=== PATIENT | female | born 1940 | race Two or more races ===

== ENCOUNTER 2025-04-17 22:41 | Inpatient (IN) | payer OTHER, SELFPAY ==
[2025-04-17] VITALS (39 sets, daily range): BP systolic 74–112; BP diastolic 33–59
[2025-04-17] MEDS: DEXTROSE 50% SYRINGE 25 GRAMS IV (19:37)
[2025-04-17 19:39] LABS: Glucose - Point of Care 47 mg/dl (70-99)
[2025-04-17] MEDS: NSS 1000 IV ×2 (19:41→20:52)
[2025-04-17 19:45] LABS: Hematocrit 35.3 % (37.0-47.0); Hemoglobin 10.6 g/dL (12.0-16.0); Mean Corp Hgb Conc. 30.0 g/dL (33.0-37.0); Mean Corpuscular Volume 97.0 fL (81.0-99.0); Nucleated Red Blood Cells % 0 %; Platelet Count 262 10^3/uL (130-400); Red Cell Dist. Width 17.8 % (11.5-14.5)
--- NOTE | 2025-04-17 19:51 | PTCARENOTE ---
IO access in left bar, NSS going, pt remains unresponsive. eyes open but no response. pt moaning and has labored breathing, on 2 L NC. D50 25 grams given. last BS 95. etom 20mg given at 1952. rocc 50mg given at 1952. pt continues to enrique, HR at
49. RT paged. being manually bagged. pt intubated at 1956. breath sounds on right, no breath sounds on left per dr barriga. amp of calcium chloride at 1958 and amp of bicarb at 1999 given via IO.
[2025-04-17] MEDS: AMIDATE 20 MG IV (19:53)
[2025-04-17] MEDS: CALCIUM CHLORIDE 10% SYRINGE 500 MG IV (19:59)
[2025-04-17 20:00] LABS: Glucose - Point of Care 95 mg/dl (70-99)
[2025-04-17] MEDS: SODIUM BICARBONATE 50 MEQ IV ×3 (20:00→21:51)
--- NOTE | 2025-04-17 20:08 | PTCARENOTE ---
ET at 19cm at right side of lip.
[2025-04-17 20:09] LABS: AST (SGOT) 135 U/L (14-36); Albumin 4.2 g/dl (3.5-5.0); Alkaline Phosphatase 65 U/L (38-126); Blood Urea Nitrogen 70 mg/dl (7-17); Calcium 9.0 mg/dl (8.4-10.2); Carbon Dioxide < 5 mmol/L (22-30); Chloride 110 mmol/L (98-107); Glucose 45 mg/dl (70-99); Potassium 5.5 mmol/L (3.5-5.1); Sodium 146 mmol/L (135-145); Total Protein 7.3 g/dl (6.3-8.2); eGFR 8.73
[2025-04-17 20:14] LABS: Glucose - Point of Care 145 mg/dl (70-99)
[2025-04-17 20:23] LABS: ALT (SGPT) 86 U/L (0-35)
--- NOTE | 2025-04-17 20:26 | ED.GENMED ---
History of Present Illness
General
Chief Complaint: Blood Sugar Problem
Source: health care sanitary technician (granddaughter) and ambulance crew
Time Seen by Provider: 04/17/25 20:25
History of Present Illness
History of Present Illness:
84-year-old female brought to the emergency room by paramedics who were called because the patient was unresponsive. Granddaughter states the patient has a history of diabetes and kidney disease. She was admitted to [facility] recently for
renal failure. There was some discussion about dialysis but her kidney function improved. Patient has not been herself for the past 3 days. Initially she just had a lack of energy and did not want to get out of bed or walk around. She had 1
episode of vomiting 4 days ago. Her oral intake has been decreasing. Her daughter states she has been drinking some liquids. Today the patient was mumbling and confused. Later in the day shortly before she was brought to the emergency room they
went to check on her and she was not responsive. The patient has a history of diabetes she takes only Glucophage for this. She is not taking any insulin.
Phy Exam
Physical Exam
Physical Exam:
General: Nonresponsive, hyperpneic,
Vitals: Hypothermic, hypotensive, bradycardic on arrival
Head: Atraumatic
Eyes: Pupils equal, cataracts noted
Throat: Poor airway reflexes
Neck: Trachea midline
Lungs: Decreased breath sounds bilaterally
Heart: Regular rate, no murmurs
Abd: Soft, Nontender, No pulsatile mass
Neuro: After dextrose administration patient did have some spontaneous head movement and movement of her hands bilaterally
Skin: Cold to touch, no rash
Extremities: pulses equal b/l, no edema
Course
Orders/Labs/Results
Orders:
Orders
04/17/25 Breakfast
NPO
Allow oral meds: Yes
Allow clear liquids: Sips of Clears
04/17/25 19:32
Dextrose 50%-Water [Dextrose 50% Syringe] 25 grams IV NOW STA
04/17/25 19:38
Complete Blood Count/With Diff Urgent
Comprehensive Metabolic Panel Urgent
Creatine Phosphokinase Urgent
Comment: ADD ON
04/17/25 19:41
0.9% Sodium Chloride 1000 ml [Nss] 1,000 ml IV BOLUS
04/17/25 19:58
Portable Chest Xray [CR Chest Portable - 1 View] Urgent
Comment:
Reason For Exam: tube check
Reason Study Needs to be Portable: Patient Unstable
04/17/25 20:00
Etomidate [Amidate] 20 mg IV NOW STA
04/17/25 20:04
Calcium CHLORIDE [Calcium Chloride 10% Syringe] 500 mg IV NOW STA
Sodium Bicarbonate 50 meq IV NOW STA
04/17/25 20:06
CR Chest Portable - 1 View Urgent
Comment:
Reason For Exam: tube check
Reason Study Needs to be Portable: Patient Unstable
04/17/25 20:15
EKG [Electrocardiogram (*1)] Urgent
Reason for Study: Other
Other Reason for Exam: unresponsive
EKG- Treatment ONCE
04/17/25 20:21
Urinalysis Reflex To Culture Urgent
Date Specimen was Collected: 04/17/25
Time Specimen was Collected: 20:20
Urine Microscopic Reflex Cult Urgent
Urine Culture Urgent
VERONICA Source: U
Specimen Description:
Date Specimen was Collected: 04/17/25
Time Specimen was Collected: 20:20
04/17/25 20:29
CT Head W/o Iv Contrast Urgent
Comment:
Reason For Exam: altered mental status
0.9% Sodium Chloride 1000 ml [Nss] 1,000 ml IV BOLUS
04/17/25 20:33
ABG [Arterial Blood Gas] Urgent
%Oxygen/Room Air: 100
Comment: 370/20/5
04/17/25 20:37
NORepinephrine 4 MG/250 ML [Levophed] 4 mg in 250 ml IV NOW
Initial dose in mcg/min, then titrate:: 2
Titrate to keep:: MAP > 65 mmHg
Titrate by mcg/min:: 1-2 mcg/min
Frequency of titrations (minutes):: 5
Maximum dose in ICU in mcg/min:: 30
Maximum dose in IMU in mcg/min:: 8
Maximum dose in IVU in mcg/min:: 4
Begin to taper infusion when:: Remained at goal for 4hrs
Taper by mcg/min:: 1-2 mcg/min
Frequency of taper (minutes) if patient maintains goal:: 30
Taper to off?: Yes
If infusion off & no longer maintaining goal:: Contact Provider
04/17/25 20:38
Rocuronium [place] [Rocuronium] 50 mg IV Q1HPRN PRN
04/17/25 20:39
Blood Culture Q30M
VERONICA Source: Blood/Venous
Specimen Description:
Blood Culture Q30M
VERONICA Source: Blood/Venous
Specimen Description:
04/17/25 20:45
Sterile Water For Inj [Sterile Water For Injection 1000 ml] 1,000 ml Sodium Bicarbonate 150 meq IV 200 mls/hr
04/17/25 20:47
NORepinephrine 4 MG/250 ML [Levophed] 4 mg in 250 ml .ROUTE .STK-MED
04/17/25 21:00
Sterile Water For Inj [Sterile Water For Injection 1000 ml] 1,000 ml Sodium Bicarbonate 150 meq IV 200 mls/hr
04/17/25 21:43
Sodium Bicarbonate 50 meq IV NOW STA
Sodium Bicarbonate 50 meq IV NOW STA
04/17/25 21:44
Cefepime HCl [Maxipime] 2,000 mg IV NOW STA
04/17/25 21:49
Lactate Level [Lactic Acid] Urgent
04/17/25 21:54
Add On- LAB Urgent
Tests Added?: CPK
04/17/25 21:55
ABG [Arterial Blood Gas] Urgent
%Oxygen/Room Air: 40
04/17/25 22:07
Admit/Transfer Patient As Directed
Co-Sign Provider:
Level of Care: Inpatient admission
Assign to:: ICU
Physician / Group: Britton
Diagnosis: Hypothermia, Hypoglycemia, Metabolic Acidosis / Shock
Reason for Hospitalization: Hypothermia, Hypoglycemia, Metabolic Acidosis / Shock
Expected length of stay greater than two midnights?: Yes
ELOS- Estimated Length of Stay in days: 5
I certify the patient meets the requirements for IP care: Yes
PRN Pain Medication Management As Directed
May give lesser potent ordered pain med per pt: Yes
preference::
Protocol:: Medication orders for pain may be administered in a
manner that supports deferring to patient preference
when the pt is:
- Requesting an ordered lesser potent pain medication.
Least to most potent pain medications are defined
as: acetaminophen < NSAID < tramadol < opioids
(morphine, oxycodone, hydromorphone).
- Requesting a lesser dose of the same medication IF
ORDERED.
- Requesting a less intrusive route of administration
if both routes are prescribed by the provider (PO <
IV).
04/17/25 22:16
Code Status As Directed
Resuscitation Status: Full Code
04/17/25 22:50
Acetaminophen [Tylenol/Feverall] 650 mg RECTAL Q6HPRN PRN
Dextrose 5%/Water 1000 ml [D5w] 1,000 ml Sodium Bicarbonate 150 meq IV 150 mls/hr
Dextrose 50%-Water [Dextrose 50% Syringe] 12.5 grams IV [id number] PRN
FentaNYL 1,000 MCG/100 ML [Sublimaze] 1,000 mcg in 100 ml IV PER PROTOCOL
Indication:: Light Sedation
Begin Infusion:: Other
Begin infusion when:: patient requires 3 or more bolus doses in 2 consecutive hours
Goal:: pain score </= 1, CPOT 0-2, RASS 0 to -2
Maximum dose in mcg/hr:: 300
Initial Dose in mcg/hr:: 25
Titration Instructions:: Titrate every 30 minutes if patient exhibits signs of pain or discomfort
Titration Instructions:: (pain score >/= 2, CPOT>/= 3).
Titration Instructions:: Administer bolus dose and increase infusion by 25 mcg/hr.
Taper Instructions:: If pain score at goal for 4 consecutive hours (pain score </= 1, CPOT 0-2)
Taper Instructions:: decrease infusion by 50 mcg/hr every 2 hours.
Taper Instructions:: When dose </= 50 mcg/hr may turn infusion off and consider PRN
Taper Instructions:: intermittent bolus doses only.
Over-sedation Instructions:: If CPOT 0-2 (goal) and RASS -3 to -5 (below goal) decrease sedative by 50%
Over-sedation Instructions:: first. If pain score remains at goal and RASS remains below goal in 1 hour,
Over-sedation Instructions:: decrease opioid infusion by 50%.
Notify provider:: immediately if pt exhibits: chest wall rigidity, hemodynamic instability,
Notify provider:: agitation/pain despite maximum dosing, pain when RASS -3 to -5 (below goal)
Additional Instructions:: When starting infusion, administer bolus dose per PRN order first.
Additional Instructions:: Patient MUST be mechanically ventilated.
Fentanyl Citrate/Pf [Sublimaze] 50 mcg IV [id number] PRN
Glucagon [GlucaGen] 1 mg IM PRN PRN
NORepinephrine 4 MG/250 ML [Levophed] 4 mg in 250 ml IV PER PROTOCOL
Currently infusing. Continue current dose and titrate:: Yes
Titrate to keep:: MAP > 65 mmHg
Titrate by mcg/min:: 1-2 mcg/min
Frequency of titrations (minutes):: 5
Maximum dose in ICU in mcg/min:: 30
Maximum dose in IMU in mcg/min:: 8
Maximum dose in IVU in mcg/min:: 4
Begin to taper infusion when:: Remained at goal for 4hrs
Taper by mcg/min:: 1-2 mcg/min
Frequency of taper (minutes) if patient maintains goal:: 30
Taper to off?: Yes
If infusion off & no longer maintaining goal:: Contact Provider
04/17/25 22:50
Consult Notification Routine
Specialty to Notify: Perfume And Toilet Water Maker
Date consulting provider notified: 04/17/25
Time consulting provider notified: 23:03
Notified:: Provider
Perfume And Toilet Water Maker Consult Routine
Consulting Provider: Asif Velasco
Was physician already notified: No
Reason for consult: Hypothermia, Hypoglycemia, Metabolic Acidosis / Shock
NEPHROLOGY CONSULT Routine
Consulting Provider: Александр Cordoba
Was physician already notified: Yes
Reason for consult: Hypothermia, Hypoglycemia, Metabolic Acidosis / Shock
Activity As Directed
Activity Level: Bedrest
Bedside Glucose Monitoring As Directed
Frequency: AC&HS
Additional Instructions:: Change to q6h if pt on TPN, tube feeding or not eating
EKG with chest pain [ECG as needed] As Directed
ECG as needed for:: Chest Pain
Rocha Catheter [Catheter- Indwelling] As Directed
Reason for insertion: Acute Kidney Injury
Discontinue Date/Time: 04/20/25 0600
I/O [Intake/ Output] As Directed
Frequency: Per unit guidelines
Intake/ Output As Directed
Frequency: Per unit guidelines
Comment: strict intake and output monitoring
Records Request [Obtain Records] As Directed
Dates of Information to be Released: Most Recent
Type of Information Requested: Entire Record
Obtain Records from: [facility]
Vital Signs As Directed
Frequency: Per unit guidelines
Weight As Directed
Frequency: Daily
Weight As Directed
Frequency: Daily
DX Deep Vein Thrombosis Video Routine
04/17/25 23:46
BMP [Basic Metabolic Panel] Q4H
TSH Reflex To Free T4 Routine
Troponin I Q6H
04/18/25 02:50
BMP [Basic Metabolic Panel] Q4H
04/18/25 04:50
Troponin I Q6H
04/18/25 06:00
EKG [Electrocardiogram (*1)] IN AM
Reason for Study: Chest Pain
Echo 2D MMode Doppler [Echo 2D MMode Color/Doppler] IN AM
Reason for Study: Shock
Complete Blood Count/No Diff IN AM
Glycohemoglobin (HgbA1c) IN AM
Magnesium IN AM
Phosphorus IN AM
04/18/25 07:30
Insulin Aspart Corrective Low [Novolog Flexpen-Low Resistance] See Protocol SC AC
04/18/25 08:00
CefTRIAXone [Rocephin] 1,000 mg IV Q24H
Heparin 5,000 units SC Q12
Pantoprazole [Protonix IV] 40 mg IV DAILY
Polyethylene Glycol Powder [Miralax] 17 grams TUBE DAILY
04/18/25 10:50
BMP [Basic Metabolic Panel] Q4H
Troponin I Q6H
04/18/25 14:50
BMP [Basic Metabolic Panel] Q4H
04/18/25 18:50
BMP [Basic Metabolic Panel] Q4H
Abnormal Lab Results
04/17/25 04/17/25 04/17/25
19:33 19:38 20:13
RBC 3.64 L 10^6/uL
(4.20-5.40)
Hgb 10.6 L g/dL
(12.0-16.0)
Hct 35.3 L %
(37.0-47.0)
MCHC 30.0 L g/dL
(33.0-37.0)
RDW 17.8 H %
(11.5-14.5)
MPV 11.2 H fL
(7.4-10.4)
Abs Immat Gran (auto) 0.2 H 10^3/uL
(0-0.05)
Immature Gran % 2.9 H %
(0-0.5)
pH
pCO2
pO2
HCO3
ABG O2 Sat (Measured)
Sodium 146 H mmol/L
(135-145)
Potassium 5.5 H mmol/L
(3.5-5.1)
Chloride 110 H mmol/L
(98-107)
Carbon Dioxide < 5 L* mmol/L
(22-30)
BUN 70 H mg/dl
(7-17)
Creatinine 4.7 H* mg/dL
(0.6-1.0)
Glucose 45 L* mg/dl
(70-99)
Lactic Acid
AST 135 H U/L
(14-36)
ALT 86 H U/L
(0-35)
Ur Occult Blood Reflex
Leukocyte Esterase Rfl
Urine WBC (Reflex)
Urine Bacteria (Reflex)
Urine Albumin (Reflex)
POC Glucose 47 L* mg/dl 145 H mg/dl
(70-99) (70-99)
04/17/25 04/17/25 04/17/25
20:21 20:33 21:49
RBC
Hgb
Hct
MCHC
RDW
MPV
Abs Immat Gran (auto)
Immature Gran %
pH 6.87 L*
(7.35-7.45)
pCO2 20 L mmHg
(32-35)
pO2 530 H mmHg
(83-108)
HCO3 3.7 L* mmol/L
(-)
ABG O2 Sat (Measured) 100.0 H %
(94-98)
Sodium
Potassium
Chloride
Carbon Dioxide
BUN
Creatinine
Glucose
Lactic Acid 14.6 H* mmol/L
(0.7-2.0)
AST
ALT
Ur Occult Blood Reflex 4+ A
(Negative)
Leukocyte Esterase Rfl 3+ A
(Negative)
Urine WBC (Reflex) >100 A /HPF
(0-5)
Urine Bacteria (Reflex) Many A
(Negative)
Urine Albumin (Reflex) 3+ A
(Neg - Trace)
POC Glucose
04/17/25
21:55
RBC
Hgb
Hct
MCHC
RDW
MPV
Abs Immat Gran (auto)
Immature Gran %
pH 6.91 L*
(7.35-7.45)
pCO2 18 L* mmHg
(32-35)
pO2 219 H mmHg
(83-108)
HCO3 3.6 L* mmol/L
(21-28)
ABG O2 Sat (Measured) 100.0 H %
(94-98)
Sodium
Potassium
Chloride
Carbon Dioxide
BUN
Creatinine
Glucose
Lactic Acid
AST
ALT
Ur Occult Blood Reflex
Leukocyte Esterase Rfl
Urine WBC (Reflex)
Urine Bacteria (Reflex)
Urine Albumin (Reflex)
POC Glucose
04/17/25 19:38
04/17/25 19:38
Vital Signs
Initial and Last Documented VS:
Initial Vital Signs
Pulse Resp
73 20
04/17/25 19:34 04/17/25 19:34
Last Documented Vital Signs
Temp Pulse Resp BP Pulse Ox
91.3 F L 80 20 104/60 100
04/18/25 03:09 04/18/25 02:00 04/18/25 02:00 04/18/25 00:00 04/18/25 02:00
Procedures
Intubations
Procedure completed by: Myself
Method of Intubation: glidescope
Tube size (cm): 7.5
Placement confirmed by: auscutation, CXR, capnography, placement corrected and direct visualization
Breath sounds after intubation: left greater than right
Additional information:
On first intubation attempt I did visualize the endotracheal tube in which her vocal cords. The color metric change was minimal on CO2 detector. Tube withdrawn and a second ET tube was placed. The second tube definitely went through the vocal
cords. CO2 detection was still not convincing breath sounds were heard in the left. The chest x-ray showed the tube in the trachea but in the right mainstem bronchus as well. It was pulled back ultimately to 19 cm.
Other
Indication for procedure:: Lack of IV access
Procedure completed by: Myself
Consent form signed: No
If no, reason: Emergency procedure
Additional Procedure:
A left tibial intraosseous line was placed using the IO gun. Needle was placed 2 cm below the tibial plateau on the medial tibia. Blood/marrow was obtained with a syringe. The line was flushed with lidocaine and then dextrose was administered
through the IO.
MDM/Problems Addressed
Differential Diagnosis Includes:
Hypoglycemia, renal failure, hyperkalemia, sepsis, ischemic or hemorrhagic stroke
MDM/Problems Addressed:
Patient presents with decreased mental status and hypoglycemia. Medics were unable to obtain IV access but did give a milligram of glucagon. Her initial glucose rhythm was in the 20s. Here was still in the 40s. Multiple attempts at IV access
were made in a short period of time. A very small IV was obtained in the right ankle. Without adequate IV access the decision was made to place an interosseous line at the left tibia. We were then able to administer 50 cc of 50% dextrose. Her
glucose did improved to 95 and then 147. Mental status did not significantly improved. She did develop a little bit of spontaneous movement of her upper extremities but certainly remained quite obtunded. Patient did not appear to be protecting
her airway and therefore we proceeded with intubation. Rapid sequence intubation was performed. ET tube was at 23 cm but on a portable chest x-ray this was found to be in the right mainstem bronchus. It was pulled back ultimately to 19 cm. She
had good bilateral breath sounds at this point. Patient is hypotensive. IV fluid resuscitation initiated with normal saline. During her initial resuscitation she was noted to be bradycardic. This was prior to intubation. She received an amp of
calcium chloride and an amp of bicarbonate for suspected hyperkalemia. Heart rate improved to the 60s. I discussed the patient's presentation with her granddaughter. She provided with the above details. Patient noted to be hypothermic as well
via temperature sensing Rocha. With a Rocha was placed there was no urine output. Bear hugger will be used to try to warm her.
Head CT shows no acute abnormalities. Vent settings adjusted for blood gas. Case discussed with nephrology to ascertain their opinion on emergent dialysis. Dr. Heller requested 2 more amps of bicarb. He would like to see how she responds to the
current interventions prior to deciding for emergent dialysis. Hospitalist notified will admit to the ICU.
*Radiology
Radiology exam reviewed: preliminary read by ED provider (I reviewed 2 portable chest x-rays. First chest x-ray shows the endotracheal tube well into the right mainstem bronchus without any focal infiltrates. Second portable chest x-ray shows the
ET tube was pulled back to just at the mike. Recommend he comes back another centimeter.)
*Pulse Oximetry
SaO2: 80
Oxygen Mode of Delivery: Ventilator
Patient hypoxic: yes
*EKG
Interpreted by ED Provider?: Yes
Heart Rate: 75
Rate: normal
Rhythm: junctional
QRS Pattern: other (Wide-complex)
Ischemia: non-specific ST changes
*Business Administration Teacher Interpretation
Rate: normal
Interpretation: abnormal
Rhythm: junctional
*Critical Care Note
Total Time (30-74mins, 75-104mins- exclusive of procedures): 65 min
comment:
Critical care statement: A total of 65 minutes of critical care time was provided for this patient. This includes management of unstable vital signs, evaluation of the patient at bedside, reviewing the patient�s pertinent medical records, discussion
with consultants, review of old EKGs and review of pertinent medical records. This time with separate from time utilized to perform the aforementioned documented procedures
ED Attending Note
-
Portions of this chart may have been created with voice recognition software.� Occasional wrong word or��sound alike� substitutions may have occurred due to the inherent limitations of voice recognition software.
Discharge Plan
Departure
Patient Disposition: Admit
Date of Disposition: 04/17/25
Time of Disposition: 21:51
Admit to: ICU
Presentation/result/management discussed w/ accepting MD/DO: Hospitalist
Patient with high blood pressure during this ER visit?: No
Condition: Critical
Discharge Problem:
Hypoglycemia, Acute renal failure (ARF), Metabolic acidosis, Acute UTI
Interventions
Interventions:
*Risk Screen - Suicide Last Done: 04/17/25 19:34
*General Assessment Last Done: 04/17/25 19:39
*Neglect/Abuse Screening Last Done: 04/17/25 19:34
*ED- Fall Risk Assessment Last Done: 04/17/25 19:39
*ED COVID-19 Vaccine History Last Done: 04/18/25 00:00
*Nursing Disposition Last Done: 04/17/25 22:28
ED- Neurological Assessment Last Done: 04/17/25 20:06
Discharge Date and Time
Discharge Date/Time: 04/17/25 22:49
[2025-04-17 20:34] LABS: Urine Character Cloudy (Clear)
[2025-04-17 20:47] LABS: B.E. -28.0 mmol/L; O2 Saturation % 100.0 % (94-98); PCO2 20 mmHg (32-35); PO2 530 mmHg (83-108)
[2025-04-17 20:50] LABS: HCO3 3.7 mmol/L (21-28)
[2025-04-17] MEDS: LEVOPHED 250 IV (20:50)
[2025-04-17 20:52] LABS: Urine White Cell >100 /HPF (0-5)
[2025-04-17] MEDS: SODIUM BICARBONATE 1150 MEQ IV ×2 (21:14→23:41)
[2025-04-17] MEDS: MAXIPIME 2000 MG IV (21:51)
[2025-04-17 22:01] LABS: B.E. -27.3 mmol/L; O2 Saturation % 100.0 % (94-98); PO2 219 mmHg (83-108)
[2025-04-17 22:04] LABS: HCO3 3.6 mmol/L (21-28); PCO2 18 mmHg (32-35)
--- NOTE | 2025-04-17 22:24 | HPS.HSE ---
Family Physician
-
Family Physician: Tima Joshi
Chief Complaint
-
Confusion / N/V
History of Present Illness
Patient is a 84y F with PMH significant for A-Fib, HTN and DM-II who presents to ED for evaluation of confusion and N/V. History obtained from ED staff and family at the bedside. Family states that patient has been feeling very weak for the
past few days. Decreased PO intake, N/V x 3 days. Today the patient seemed confused and was complaining of SOB. 911 was called and patient brought to the ED for further evaluation. EMS reported glucose of 20 on initial check. Patient was given
glucagon by EMS. Glucose remained in the 40s on arrival to the ED and patient was unresponsive. She was intubated in the ED.
Patient was noted to be hypothermic and hypotensive. She was started on IVFs and Levophed.
Labs were done showing multiple metabolic derangements.
At the time of my examination, patient is unresponsive on the ventilator on no active sedation at present.
Medical History
Past Medical History
Past Medical History: Reports Other
Additional Past Medical History:
Hypertension
DM-II
A-Fib
CKD
Past Surgical History: Reports Other
Additional Past Surgical History:
Bilateral Hip Surgery
Ankle Surgery
Social History
Tobacco: Non-smoker
Alcohol: None
Drug: None
Family History
Family History: Not pertinent
Allergies / Home Medications
Allergies reflects when Allergies were last updated in [facility].
Home Medications with original date entered in [facility]
Allergy/Medication List:
Allergies
Allergy/AdvReac Type Severity Reaction Status Date / Time
aspirin Allergy Unknown Verified 04/17/25 20:43
Home Medications
amiodarone 200 mg tablet 200 mg PO DAILY 04/17/25
apixaban 2.5 mg tablet (Eliquis) 2.5 mg PO BID 04/17/25
ergocalciferol (vitamin D2) 1,250 mcg (50,000 unit) capsule 1,250 mcg PO MO 04/17/25
famotidine 20 mg tablet (Pepcid) 20 mg PO BIDPRN PRN gerd 04/17/25
ferrous sulfate 325 mg (65 mg iron) tablet 325 mg PO MOWEFR 04/17/25
guaifenesin 100 mg/5 mL oral liquid (Karli-Tussin) 200 mg PO Q6HPRN PRN cough 04/17/25
lisinopril 40 mg tablet 40 mg PO DAILY 04/17/25
metformin 500 mg tablet 500 mg PO BID 04/17/25
metoprolol succinate 25 mg tablet,extended release 24 hr (Toprol XL) 25 mg PO DAILY 04/17/25
pravastatin 40 mg tablet 40 mg PO DAILY 04/17/25
Review of Systems
-
Unable to obtain full review of systems at this time due to: Patient Intubation
Physical Exam
Vital Signs
Vital Signs
Temp Pulse Resp BP
89.6 F L 79 20 100/46
04/17/25 22:01 04/17/25 22:15 04/17/25 22:15 04/17/25 22:15
Physical Exam
General: Other (84y F critically-ill, unresponsive on ventilator.)
HEENT: Other (Dry MM. ETT in place.)
Respiratory: Clear; No Wheezes, Rales or Rhonchi
Cardiac: S1/S2 and Regular Rhythm; No Murmur
GI: Soft, Non Tender, Non Distended and Normal Bowel Sounds
Genito-urinary: Other (Rocha in place with scant cloudy urine in tubing.)
Musculoskeletal: No Clubbing, No Cyanosis and No Edema
Neuro: Other (Unresponsive on vent.)
Laboratory Results
-
04/17/25 19:38
04/17/25 19:38
Laboratory Results
pH 6.91 (7.35-7.45) L* 04/17/25 21:55
pCO2 18 mmHg (32-35) L* 04/17/25 21:55
pO2 219 mmHg (83-108) H 04/17/25 21:55
HCO3 3.6 mmol/L (21-28) L* 04/17/25 21:55
Total Bilirubin 0.7 mg/dl (0.2-1.3) 04/17/25 19:38
AST 135 U/L (14-36) H 04/17/25 19:38
ALT 86 U/L (0-35) H 04/17/25 19:38
Alkaline Phosphatase 65 U/L (38-126) 04/17/25 19:38
Impression/Plan
-
A/P: Patient is an 84y F with PMH significant for A-Fib, HTN and DM-II who presents to ED for evaluation of N/V, confusion and poor responsiveness.
Hypothermia
Hypoglycemia
Hypotension / Shock
Anion Gap Metabolic Acidosis
NALINI on CKD
- Admit for further evaluation and treatment.
- Unclear etiology in patient on multiple nephrotoxic medications with poor PO intake, recent N/V, etc.
- Also evidence of current urinary infection (see below).
- Intubated for airway protection / acidosis management.
- Sedation if needed. Follow ABG for improvement.
- IVFs with bicarb supplementation. Include dextrose given hypoglycemia.
- Follow labs / lytes for improvement and adjust IVFs as needed.
- Repeat labs now and every 4 hours.
- Nephrology consulted. May require dialysis if no significant improvement with IVFs / bicarb.
- Avoid nephrotoxic agents (lisinopril, metformin).
- Pressors as needed to maintain perfusion / avoid hypotension.
- Obtain records from hospitalization [facility] - also for renal failure at that time.
Acute TME
- Likely secondary to the above - acidosis / shock / etc.
- CT done in the ED was unremarkable.
- Add sedation if needed while on vent support.
- Treat underlying issues as noted and follow for improvement in mentation.
UTI
- Rocha placed with return of scant amount of purulent appearing urine.
- Continue IV abx with ceftriaxone for now pending culture data.
- Possible component of sepsis underlying shock.
- IVFs / pressors as noted above.
- Follow temperature curve. Monitor for any clinical changes.
DM-II
- Currently hypoglycemic with initial glucose of 20 for EMS.
- Hold all oral hypoglycemic medications (metformin at home which can cause lactic acidosis as well).
- Follow glucose and adjust IVFs / cover with SSI as needed.
- Update A1C.
Atrial Fibrillation - Unknown Type
- EKG with wide QRS and prolonged intervals - likely due to hypothermia.
- Hold current medications including metoprolol and Eliquis acutely.
- Monitor on telemetry.
- Check Echo in AM given shock.
Benign Hypertension
- Currently hypotensive. Hold all antihypertensive medications.
Normocytic Anemia
- Unknown baseline. Follow for changes. No acute evidence of bleeding.
DVT Prophylaxis: Subcut Heparin
Code Status: Full
Reviewed with family at the bedside in detail. Dialysis discussed during November admission in [place] as well - though ultimately not required at that time. Family states that patient would be amenable to HD if needed.
interpersonal communications professor is grand-daughter: Jacki Santoro .
--- NOTE | 2025-04-17 23:22 | W.PN.SEPSIS ---
Sepsis
Vital Signs
Temp Pulse Resp BP
89.6 F L 78 16 101/50
04/17/25 22:01 04/17/25 22:46 04/17/25 22:46 04/17/25 22:35
Physical Exam
Physical Exam:
A focused exam was performed after fluid resuscitation.
Capillary Refill
Bilateral Upper Extremity:
Dafne Time: Less than 3 sec
Bilateral Lower Extremity:
Dafne Time: Less than 3 sec
Pulse Evaluation
Bilateral Radial:
Pulse Evaluation: Present
Bilateral Dorsalis Pedis:
Pulse Evaluation: Present
--- NOTE | 2025-04-17 23:22 | W.PN.UPDATE ---
Update Note
Progress Note Update
ARTERIAL LINE (A-Line) PLACEMENT
Date: 04/17/25
Time: 2310
Indication: Hemodynamic monitoring, emergent consent implied
A time-out was completed verifying correct patient, procedure, site, positioning, and special equipment if applicable. Eulogio�s test was performed to ensure adequate perfusion. The patient�s right wrist was prepped and draped in sterile fashion.
A�20G Arrow arterial line was introduced into the radial artery. The catheter was threaded over the guide wire and the needle was removed with appropriate pulsatile�blood return. A sterile dressing applied. Perfusion to the extremity distal to the
point of catheter insertion was checked and found to be adequate.
Estimated Blood Loss: <5cc
The patient tolerated the procedure well and there were no complications.
[2025-04-17 23:29] LABS: Glucose - Point of Care 207 mg/dl (70-99)
[2025-04-17] MEDS: PITRESSIN 100 IV (23:40)
[2025-04-18] VITALS: BP 104/60
--- NOTE | 2025-04-18 | PTCARENOTE ---
rec`d pt from ED- unresponsive, intubated. no corneals, no cough, no gag. pupils 2mm and not reactive. karli hugger on pt due to pt`d temp being 89 degrees. SR on monitor. PIVS flushed and patent. left bar IO flushed and +blood return. pressors
running to maintain MAP>65. 7.5 ETT at 19cm. POX 100%. vent settings a/c 20/370/40%/5 of peep. temp sensing rush draining milky in color. restraints on pt. sacral foam for protection and heel foams for protection. safe environment maintained.
[2025-04-18 00:01] LABS: B.E. -22.8 mmol/L; O2 Saturation % 100.0 % (94-98); PO2 209 mmHg (83-108)
[2025-04-18 00:04] LABS: O2 Therapy VENT
[2025-04-18 00:05] LABS: HCO3 5.3 mmol/L (21-28); PCO2 18 mmHg (32-35)
[2025-04-18] MEDS: NSS 1000 IV (00:05)
[2025-04-18 00:26] LABS: Blood Urea Nitrogen 62 mg/dl (7-17); Calcium 9.5 mg/dl (8.4-10.2); Carbon Dioxide < 5 mmol/L (22-30); Chloride 111 mmol/L (98-107); Estimated Creatinine Clearance 7 ml/min; Glucose 216 mg/dl (70-99); Potassium 4.5 mmol/L (3.5-5.1); Sodium 149 mmol/L (135-145); Triglycerides 198 mg/dl (10-149); eGFR 11.63
[2025-04-18 00:29] LABS: Troponin I 0.024 ng/ml
[2025-04-18] MEDS: LEVOPHED 250 IV ×5 (02:21→16:52)
[2025-04-18 04:00] VITALS: BP 159/34
[2025-04-18 04:23] LABS: B.E. -20.4 mmol/L; O2 Saturation % 100.0 % (94-98); PO2 184 mmHg (83-108)
[2025-04-18 04:25] LABS: HCO3 6.2 mmol/L (21-28); PCO2 17 mmHg (32-35)
[2025-04-18 04:40] LABS: Hematocrit 28.1 % (37.0-47.0); Hemoglobin 9.2 g/dL (12.0-16.0); Mean Corp Hgb Conc. 32.7 g/dL (33.0-37.0); Mean Corpuscular Volume 90.9 fL (81.0-99.0); Platelet Count 209 10^3/uL (130-400); Red Cell Dist. Width 17.8 % (11.5-14.5)
[2025-04-18 04:44] LABS: INR 2.18; PT 24.4 Sec (11.4-14.6)
[2025-04-18 04:45] LABS: APTT 37.0 Sec (23.4-35.0)
--- NOTE | 2025-04-18 05:03 | PTCARENOTE ---
pt reassessed, no changes in pt assessment. levo titrated per order. safe environment maintained.
[2025-04-18 05:04] LABS: AST (SGOT) 251 U/L (14-36); Albumin 2.6 g/dl (3.5-5.0); Alkaline Phosphatase 62 U/L (38-126); Blood Urea Nitrogen 59 mg/dl (7-17); Calcium 7.7 mg/dl (8.4-10.2); Carbon Dioxide < 5 mmol/L (22-30); Chloride 104 mmol/L (98-107); Estimated Creatinine Clearance 8 ml/min; Glucose 386 mg/dl (70-99); Magnesium 1.3 mg/dl (1.6-2.3); Potassium 3.9 mmol/L (3.5-5.1); Sodium 144 mmol/L (135-145); Total Protein 4.7 g/dl (6.3-8.2); Troponin I 0.020 ng/ml; eGFR 13.34
[2025-04-18 05:24] LABS: ALT (SGPT) 130 U/L (0-35)
[2025-04-18] MEDS: SODIUM BICARBONATE 1150 MEQ IV ×2 (05:39→12:24)
[2025-04-18] MEDS: FLEXBUMIN 100 IV (05:47)
[2025-04-18] MEDS: MAGNESIUM SULFATE 50 IV (05:56)
[2025-04-18 06:00] VITALS: BMI 18.3
[2025-04-18] MEDS: PITRESSIN 100 IV ×2 (06:33→17:05)
--- NOTE | 2025-04-18 07:37 | W.PN.HOSP.TC ---
Today's Communication/Plan
-
Loop Tacker consult
Cortisol level
Vancomycin, Zosyn
Stop ceftriaxone
Await cultures
Wean pressors
Recheck labs
Replete magnesium
Assessment / Plan
Assessment / Plan
Gen-intubated, sedated
HEENT-NC, AT, anicteric, clear oral mm
Neck-supple
CV-reg, no M, +S1/S2
Lungs-clear B/L
Abd-soft, NT, ND
Ext-no edema
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
Skin-warm and dry
Acute metabolic encephalopathy -most likely multifactorial etiology including hypoglycemia, hypotension, severe metabolic acidosis, NALINI, etc.
CT head on admission shows no acute abnormality. No hemorrhage. 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 Baseline cognition unknown.
Acute hypoxic respiratory failure -intubated for airway protection given obtundation on presentation. Loop Tacker consulted. Continue ICU monitoring.
No obvious infiltrate on chest x-ray, I reviewed it myself.
Shock -septic versus cardiogenic versus hypovolemic versus other. Currently stable hemodynamically on Levophed and vasopressin. Wean down as able. Continue IV fluid support.
Blood cultures pending, urine culture pending. Urinalysis does show pyuria. Would broaden antibiotics given presentation with possible septic shock, critical illness. She received a dose of cefepime 2000 mg at 9:51 PM last night.
NALINI -likely due to shock, hypotension, ATN, hypovolemia, etc.
Rocha catheter inserted. Nephrology consulted. Baseline renal function unknown. Need to obtain records.
CPK 33.
High AG metabolic acidosis -presentation with shock, lactic acidosis, NALINI. Continue sodium bicarbonate IV infusion.
Hypothermia -TSH 31, free T4 normal at 1.3. Check random cortisol in light of presentation with hypotension, hypoglycemia, hypothermia.
Hypernatremia -due to severe dehydration. Presentation with sodium 146, repeat 149, repeat 144. Monitor labs closely.
Hyperkalemia -resolved.
Hypomagnesemia -getting repleted.
Hyperphosphatemia
DM2 with hypoglycemia -presentation with glucose 45, reportedly glucose in the 20s at home. Metformin listed as the only diabetes medication. Last glucose 386, may need to initiate critical care insulin infusion protocol. Currently subcutaneous
corrective doses of aspart ordered. Hemoglobin A1c pending. Cortisol level pending.
Atrial fibrillation, unknown type -hold amiodarone and Eliquis.
Normocytic anemia -unknown acuity or etiology.
Full code
Anticipated Discharge: > 48 hours
Subjective/Interval History
-
Date of Service: April 18, 2025
Patient seen and examined. Remains sedated and intubated. Unresponsive.
Objective Data
-
Labs:
Laboratory Results
04/17/25 04/17/25 04/17/25
19:38 20:33 21:55
WBC 7.7
Hgb 10.6 L
Hct 35.3 L
Plt Count 262
PT
INR
APTT
HCO3 3.7 L* 3.6 L*
Sodium 146 H
Potassium 5.5 H
Chloride 110 H
Carbon Dioxide < 5 L*
BUN 70 H
Creatinine 4.7 H*
Glucose 45 L*
Calcium 9.0
Total Bilirubin 0.7
AST 135 H
ALT 86 H
Alkaline Phosphatase 65
04/17/25 04/17/25 04/17/25
22:50 23:46 23:51
WBC
Hgb
Hct
Plt Count
PT
INR
APTT
HCO3 Cancelled 5.3 L*
Sodium 149 H
Potassium 4.5
Chloride 111 H
Carbon Dioxide < 5 L*
BUN 62 H
Creatinine 3.7 H
Glucose 216 H
Calcium 9.5
Total Bilirubin
AST
ALT
Alkaline Phosphatase
04/17/25 04/18/25 04/18/25
23:52 04:15 04:15
WBC 6.2
Hgb 9.2 L
Hct 28.1 L
Plt Count 209 D
PT 24.4 H
INR 2.18
APTT 37.0 H
HCO3 6.2 L*
Sodium Cancelled Cancelled 144
Potassium Cancelled Cancelled
Chloride Cancelled
Carbon Dioxide Cancelled
BUN Cancelled
Creatinine Cancelled
Glucose Cancelled
Calcium Cancelled
Total Bilirubin
AST
ALT
Alkaline Phosphatase
04/18/25 04/18/25 04/18/25
04:15 04:15 04:15
WBC
Hgb
Hct
Plt Count
PT
INR
APTT
HCO3
Sodium
Potassium 3.9
Chloride Cancelled 104
Carbon Dioxide Cancelled < 5 L*
BUN Cancelled
Creatinine
Glucose
Calcium
Total Bilirubin
AST
ALT
Alkaline Phosphatase
04/18/25 04/18/25 04/18/25
04:15 04:15 04:15
WBC
Hgb
Hct
Plt Count
PT
INR
APTT
HCO3
Sodium
Potassium
Chloride
Carbon Dioxide
BUN 59 H
Creatinine Cancelled 3.3 H
Glucose Cancelled 386 H
Calcium Cancelled
Total Bilirubin
AST
ALT
Alkaline Phosphatase
04/18/25 04/18/25 04/18/25
04:15 08:00 10:50
WBC
Hgb
Hct
Plt Count
PT
INR
APTT
HCO3 Pending
Sodium Pending
Potassium Pending
Chloride Pending
Carbon Dioxide Pending
BUN Pending
Creatinine Pending
Glucose Pending
Calcium 7.7 L D Pending
Total Bilirubin 1.0
AST 251 H
ALT 130 H
Alkaline Phosphatase 62
04/18/25 04/18/25 04/18/25
11:00 12:00 14:50
WBC
Hgb
Hct
Plt Count
PT
INR
APTT
HCO3 Pending
Sodium Pending Pending
Potassium Pending Pending
Chloride Pending Pending
Carbon Dioxide Pending Pending
BUN Pending Pending
Creatinine Pending Pending
Glucose Pending Pending
Calcium Pending Pending
Total Bilirubin
AST
ALT
Alkaline Phosphatase
04/18/25
18:50
WBC
Hgb
Hct
Plt Count
PT
INR
APTT
HCO3
Sodium Pending
Potassium Pending
Chloride Pending
Carbon Dioxide Pending
BUN Pending
Creatinine Pending
Glucose Pending
Calcium Pending
Total Bilirubin
AST
ALT
Alkaline Phosphatase
Vital Signs:
Vital Signs
Temp Pulse Resp BP Pulse Ox
97.7 F 82 20 159/34 100
04/18/25 07:25 04/18/25 04:30 04/18/25 04:30 04/18/25 04:00 04/18/25 04:49
I&O
04/17/25 04/18/25 04/19/25
06:59 06:59 06:59
Intake Total 1854.0 / 1854.0
Output Total 495 / 495
Balance 1359.0 / 1359.0
Review of Systems
-
History Source: Patient
All other systems: Reviewed and negative
[2025-04-18 08:00] VITALS: BP 155/34
--- NOTE | 2025-04-18 08:00 | PTCARENOTE ---
Pt rec'd from night RN 07:15, intubated and unresponsive on no sedation. Restraints removed; pt makes no purposeful movements, no cough with suctioning, no corneal reflexes noted. Levo/vaso/bicarb/albumin/mag riders infusing as ordered. Pt
tolerating current vent settings: AC 20/370/40/5...7.5 ETT positioned on right side of mouth at 19 lida. Pt with multiple PIV sites, left bar IO access placed in ED, all flushed and patent. Skin checked, CHG bath, rush care and oral care provided.
Medications and assessment as documented, see flowsheet. Kinsey hugger in place for temp management, turned off during walking rounds as pt was at goal temp per core measurement. Labs and ABGs drawn and sent -results noted and communicated to
physicians. Safe environment maintained.
[2025-04-18 08:14] LABS: Glycohemoglobin (HgbA1c) 5.7 % (4.0-5.6)
--- NOTE | 2025-04-18 08:19 | CON.INTV ---
Consultation
Consultation Request
Date/Time Consultation Requested: 04/17/20252249
Date/Time Consultation Performed: 04/18/2025814
Requesting Provider: Dr. Jarquin
Performing Provider: Dr. Velasco
Reason for Consultation: Intubated
Medical History
-
Chief Complaint: Found unresponsive
History of Present Illness:
84-year-old female who was found unresponsive. On the morning prior to arrival, she was hypoglycemic with blood sugar 51. Upon EMS arrival, blood sugars were 35. IM glucagon given. Patient was hypotensive for EMS with BP in the 80s/50s. Patient
was brought to the ER, and was given additional dextrose with glucose improving to 147, however she remained unresponsive/obtunded and was intubated in the ER. She was found to be hyperkalemic and treated with bicarbonate + calcium chloride. She
was found to be hypothermic (90 �F) via temperature sensing Rocha. Head CT performed showing no acute abnormalities. She was also found to be acidotic with NALINI and nephrology contacted and 2 A of bicarb were given. There were no recommendations
for emergent dialysis. Patient was admitted to the ICU and machine coil assembler services consulted for additional management/recommendations.
When I saw the patient she was intubated on AC/CMV at 20/370/40%/5 with PIP 15 cm water, VTE 362 cc and breathing at 22 breaths/min. Her daughter, Flor Bryant and her granddaughter, Arianne Bryant were both at bedside and all questions were
answered. Patient currently on vasopressin at 0.03 units/min and Levophed at 20 mcg/min. Current BP via A-line 146/54, heart rate 87 and saturating 100%.
PMHx: A-fib on Eliquis, vitamin D deficiency, hypertension, CKD, DM type II
PSHx: Bilateral hip surgery, ankle surgery
Past Medical History
Past Medical History: Other (Above as per HPI)
Past Surgical History: Other (Above as per HPI)
Social History
Tobacco: Non-smoker
Alcohol: None
Drug: None
Family History
Family History: Unable to Obtain
Allergies / Home Medications
Allergies
Allergy/AdvReac Type Severity Reaction Status Date / Time
aspirin Allergy Unknown Verified 04/17/25 20:43
Home Medications
�Medication �Instructions �Recorded �Confirmed �Last Taken �Type
amiodarone 200 mg tablet 200 mg PO DAILY 04/17/25 04/17/25 Unknown History
apixaban 2.5 mg tablet (Eliquis) 2.5 mg PO BID 04/17/25 04/17/25 Unknown History
ergocalciferol (vitamin D2) 1,250 1,250 mcg PO MO 04/17/25 04/17/25 Unknown History
mcg (50,000 unit) capsule
famotidine 20 mg tablet (Pepcid) 20 mg PO BIDPRN PRN gerd 04/17/25 04/17/25 Unknown History
ferrous sulfate 325 mg (65 mg 325 mg PO MOWEFR 04/17/25 04/17/25 Unknown History
iron) tablet
guaifenesin 100 mg/5 mL oral 200 mg PO Q6HPRN PRN cough 04/17/25 04/17/25 Unknown History
liquid (Karli-Tussin)
lisinopril 40 mg tablet 40 mg PO DAILY 04/17/25 04/17/25 Unknown History
metformin 500 mg tablet 500 mg PO BID 04/17/25 04/17/25 Unknown History
metoprolol succinate 25 mg 25 mg PO DAILY 04/17/25 04/17/25 Unknown History
tablet,extended release 24 hr
(Toprol XL)
pravastatin 40 mg tablet 40 mg PO DAILY 04/17/25 04/17/25 Unknown History
Review of Systems
-
Unable to Obtain full review of systems at this time due to: Patient Intubation
Vitals / Labs / Diagnostic Testing
Vital Signs
Temp Pulse Resp BP Pulse Ox
97.7 F 82 20 159/34 100
04/18/25 07:25 04/18/25 04:30 04/18/25 04:30 04/18/25 04:00 04/18/25 08:47
Lab Data
04/18/25 04:15
Laboratory Results
04/17/25 04/17/25 04/17/25
20:33 21:55 22:50
PT
INR
APTT
pH 6.87 L* 6.91 L* Cancelled
pCO2 20 L 18 L* Cancelled
pO2 530 H 219 H Cancelled
HCO3 3.7 L* 3.6 L* Cancelled
O2 Delivery Level Cancelled
04/17/25 04/18/25 04/18/25
23:51 04:15 08:43
PT 24.4 H
INR 2.18
APTT 37.0 H
pH 7.08 L* 7.17 L* 7.36
pCO2 18 L* 17 L* 14 L*
pO2 209 H 184 H 198 H
HCO3 5.3 L* 6.2 L* 7.9 L*
O2 Delivery Level Vent Vent
Diagnostic Testing:
Physical Exam
-
HEENT: Normocephalic, Anicteric and Other (ETT in place)
Cardiovascular: S1/S2, Regular Rhythm and Peripheral Edema (negative)
Respiratory: Wheeze (negative), Rales (negative), Rhonchi (negative), Non-Labored Respirations and Other (Mechanical breath sounds heard bilaterally)
GI: Soft, Non Distended, Non Tender and Normal Bowel Sounds
Neurology: Tremors (negative), Other (Unresponsive off sedation) and Other (Pupils 3 mm bilaterally and unreactive; absent gag/cough reflex, absent corneal reflexes)
Skin: Warm and Dry
General: Respiratory Distress (negative), Comfortable, Fever (negative) and Chills (negative)
Assessment
-
Assessment: 84-year-old female who was found unresponsive. On the morning prior to arrival, she was hypoglycemic with blood sugar 51. Upon EMS arrival, blood sugars were 35. IM glucagon given. Patient was hypotensive for EMS with BP in the
80s/50s. Patient was brought to the ER, and was given additional dextrose with glucose improving to 147, however she remained unresponsive/obtunded and was intubated in the ER. She was found to be hyperkalemic and treated with bicarbonate + calcium
chloride. She was found to be hypothermic (90 �F) via temperature sensing Rocha. Head CT performed showing no acute abnormalities. She was also found to be acidotic with NALINI and nephrology contacted and 2 A of bicarb were given. There were no
recommendations for emergent dialysis. Patient was admitted to the ICU and machine coil assembler services consulted for additional management/recommendations.
Chronic conditions MANAGER DESKTOP: A-fib on Eliquis, vitamin D deficiency, hypertension, CKD, DM type II
Impression:
#Acute hypoxic respiratory failure requiring mechanical ventilation (intubated 04/18/2025 in ER)
#Severe metabolic acidosis with increased anion gap
#Lactic acidosis in the setting of recent metformin use and NALINI on CKD
#NALINI superimposed on CKD (unknown baseline creatinine)
#Anemia
#Elevated INR in the setting of Eliquis use and reduce PO intake prior to arrival
#Hyperglycemia (HbA1c: 5.7 on 04/18/2025)
#Hypocalcemia
#Hypomagnesemia
#Transaminitis
#Subclinical hypothyroidism with significantly elevated TSH at 31.5 (free T4: 1.3)
#UTI
#A-fib on Eliquis
Plan:
- Patient was found minimally responsive this morning and was 'breathing funny' and was found to have significant lactic acidosis with NALINI and was intubated for airway protection
- The family does say that for the past 3 days she has been eating less and she was last known normal on the morning prior to arrival. Family denies that the patient uses any drugs or drinks alcohol. She does have a history of CKD but normally
makes urine
- Continue with mechanical ventilation with daily SAT/SBT if clinically appropriate
- Maintain plateau pressure <30 and titrate FiO2 + PEEP to keep SpO2 >90-94%
- Continue aspiration precautions; keep HOB >30-45�
- prn nebulized bronchodilators - not currently bronchospastic
- Oropharyngeal + deep ETT suctioning with subglottic as needed
- Daily CXR + blood gas
- Daily vent adjustments as needed based on blood gas and SaO2
- Low level of sedation with goal RASS as 0 to -2
- Given that she continues to be minimally responsive, check CT head again tomorrow (admission CT head showed no acute intracranial abnormality)
- Avoid sedation if possible
- I believe that the reason she remains unresponsive is due to the RSI medications used in the ER in the setting of severe NALINI with prolonged clearance
- Her TSH is significantly elevated at 31.5 although her free T4 is WNL at 1.3. I will start her on IV levothyroxine and continue trending her TSH to assess for continued improvement
- Maintain MAP >65
- Continue with vasopressors and wean as tolerated
- Currently on Levophed + vasopressin
- Next pressor to use would be epinephrine
- Random cortisol level is 46.2, hence no need for stress dose steroids
- Hold patient's home antihypertensives; will start metoprolol at a low dose as soon as possible to avoid beta-olesya withdrawal
- Nephrology on board and they are considering starting her on dialysis given her increasing lactic acidosis in the setting of metformin use MANAGER DESKTOP
- Continue to trend serum bicarbonate level while continuing bicarbonate drip
- Continue to trend lactate
- Goal lactate level is <2 mmol/L
- If she is started on dialysis she will likely need CRRT given she remains on vasopressors
- Replete electrolytes with K>4, Mg>2
- Maintain euglycemia with goal BG 140-180
- Will give a dose of NPH and start ISS q6hr
- She may need insulin gtt if BG remains elevated and uncontrolled
- Trend H/H and transfuse if needed to keep Hb>7g/dL; keep plt>20k, unless there is concern for bleeding then keep plt>50k
- Early nutrition when hemodynamics improve
- DVT ppx: HSQ; continue to trend INR given it is >2
Code status: Full code
Continue ICU level of care for this critically ill patient
Critical care statement: A total of 44 minutes of critical care time was provided for this patient today. This includes management of unstable vital signs, evaluation of the patient at bedside, reviewing the patient's pertinent medical records
including radiographs, microbiology, laboratory evaluations, and discussion with primary team, consultants, pharmacy, nutrition, physical therapy, case management, charge nurse, critical care nursing, and respiratory therapy.
Data:
CT Head 04/17/2025: No acute intracranial abnormality noted. No acute intracranial hemorrhage. 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
[2025-04-18] MEDS: MIRALAX TUBE (08:48)
[2025-04-18 08:59] LABS: B.E. -15.6 mmol/L; O2 Saturation % 99.9 % (94-98); PO2 198 mmHg (83-108)
[2025-04-18 09:01] LABS: HCO3 7.9 mmol/L (21-28); O2 Therapy VENT; PCO2 14 mmHg (32-35)
[2025-04-18] MEDS: ZOSYN 50 IV ×2 (09:02→17:10)
[2025-04-18] MEDS: VANCOCIN 200 IV (09:03)
[2025-04-18] MEDS: PROTONIX IV 40 MG IV (09:05)
[2025-04-18] MEDS: HEPARIN 5000 UNITS SC ×2 (09:05→20:59)
[2025-04-18] MEDS: NSS (PRESERVATIVE FREE) 10 ML IV (09:05)
[2025-04-18 09:53] LABS: Cortisol, Random 46.2 ug/dl
[2025-04-18 10:05] VITALS: BMI 18.3
--- NOTE | 2025-04-18 10:30 | PHA.VAN.IN ---
Assessment
- Assessment
Renal Function: Unknown baseline
Minimum Temperature: 96.9 04/18/25 0600
Concomitant Antimicrobials: pip/tazo - renally dosed
AUC Dosing Plan
- Empiric Dosing
Initial / Loading Dose: 1000 mg Load dose adm ~0900
Maintenance Regimen: dosing by random level
Plan
- Plan
Monitoring: random level AM 04/19
Pharmacokinetics Vancomycin I
- -
Patient Age: 84
Patient Sex: Female
Vancomycin Day #: 1
Indication: Bacteremia
Requesting Provider: Anish Monique
Height / Weight:
Height 4 ft 11 in
Actual Weight 41 kg
Pertinent Past Medical History: BMI <20; NALINI on CKD
- Vital Signs / Lab Results
Temp Pulse Resp BP Pulse Ox
97.7 F 82 20 159/34 100
04/18/25 07:25 04/18/25 04:30 04/18/25 04:30 04/18/25 04:00 04/18/25 08:47
Lab Results - Hematology
04/17/25 04/18/25
19:38 04:15
WBC 7.7 6.2
Lab Results - Chemistry
04/17/25 04/17/25 04/17/25
19:38 23:46 23:52
BUN 70 H 62 H Cancelled
Creatinine 4.7 H* 3.7 H Cancelled
Estimated Creat Clear 7 Cancelled
Albumin 4.2
04/18/25 04/18/25 04/18/25
04:15 04:15 04:15
BUN Cancelled 59 H
Creatinine Cancelled 3.3 H
Estimated Creat Clear Cancelled
Albumin
04/18/25
04:15
BUN
Creatinine
Estimated Creat Clear 8
Albumin 2.6 L D
04/17/25 04/18/2525
21:49 04:15 08:43
Lactic Acid 14.6 H* 15.9 H* 15.2 H*
Lab Results - Urine
04/17/25
20:21
Urine Nitrite (Reflex) Negative
Leukocyte Esterase Rfl 3+ A
Urine WBC (Reflex) >100 A
Ur Squamous Epith Cells
Urine Bacteria (Reflex) Many A
[2025-04-18 11:38] LABS: Blood Urea Nitrogen 56 mg/dl (7-17); Calcium 7.3 mg/dl (8.4-10.2); Carbon Dioxide 5 mmol/L (22-30); Chloride 97 mmol/L (98-107); Estimated Creatinine Clearance 9 ml/min; Glucose 407 mg/dl (70-99); Potassium 3.2 mmol/L (3.5-5.1); Sodium 136 mmol/L (135-145); eGFR 14.96
[2025-04-18] MEDS: NOVOLOG FLEXPEN-LOW RESISTANCE 5 UNITS SC (11:46)
[2025-04-18 11:47] LABS: Troponin I 0.031 ng/ml
--- NOTE | 2025-04-18 11:48 | VATNOTE ---
R med cub AC infiltrated zosyn/bicarb. approx 8x11cm erythema. 1 cc aspirated. Cath removed. Elevated and warm compress applied. Advised to change tubing per protocol. Marked for monitoring.
[2025-04-18 11:50] VITALS: BP 168/38
[2025-04-18 11:56] LABS: Glucose - Point of Care 390 mg/dl (70-99)
[2025-04-18 12:32] LABS: B.E. -14.2 mmol/L; O2 Saturation % 100.0 % (94-98); PO2 166 mmHg (83-108)
[2025-04-18 12:34] LABS: HCO3 9.2 mmol/L (21-28); PCO2 16 mmHg (32-35)
--- NOTE | 2025-04-18 12:35 | W.CON.NEPH ---
Consultation
-
Date/Time Consultation Requested: April 17, 2025 at 11 PM
Date/Time Consultation Performed: April 18, 2025 at 9 AM
Requesting Provider: Dr. Jarquin
Performing Provider: Dr. Cordoba
Reason for Consultation: Acute kidney injury
Medical History
-
Chief Complaint: Acute kidney injury
History of Present Illness:
84y F with PMH significant for A-Fib, HTN and DM-II who presents to ED for evaluation of confusion and N/V. History obtained from ED doc and family at the bedside today. Family states that patient has been feeling very weak for the past few
days. Decreased PO intake, N/V x 3 days. 911 was called and patient brought to the ED for further evaluation. EMS reported glucose of 20 on initial check. Patient was given glucagon by EMS. Glucose remained in the 40s on arrival to the ED and
patient was unresponsive. She was intubated in the ED.
Renal consult for significant azotemia and severe metabolic acidosis. She was seen in the ICU she is on pressors and intubated
Past Medical History
A-Fib, HTN and DM-II
Social History
Tobacco: Non-Smoker
Alcohol: None
Family History
Brother on dialysis
Allergies / Home Medications
Allergy/AdvReac Type Severity Reaction Status Date / Time
aspirin Allergy Unknown Verified 04/17/25 20:43
�Medication �Instructions �Recorded �Confirmed �Type
amiodarone 200 mg tablet 200 mg PO DAILY Heart 04/17/25 04/17/25 History
Disease/Condition
apixaban 2.5 mg tablet (Eliquis) 2.5 mg PO BID Blood Clot 04/17/25 04/17/25 History
Prevention/Tx
ergocalciferol (vitamin D2) 1,250 1,250 mcg PO MO Supplement 04/17/25 04/17/25 History
mcg (50,000 unit) capsule
famotidine 20 mg tablet (Pepcid) 20 mg PO BIDPRN PRN gerd 04/17/25 04/17/25 History
ferrous sulfate 325 mg (65 mg 325 mg PO MOWEFR Supplement 04/17/25 04/17/25 History
iron) tablet
guaifenesin 100 mg/5 mL oral 200 mg PO Q6HPRN PRN cough 04/17/25 04/17/25 History
liquid (Karli-Tussin)
lisinopril 40 mg tablet 40 mg PO DAILY Blood Pressure 04/17/25 04/17/25 History
metformin 500 mg tablet 500 mg PO BID Diabetes 04/17/25 04/17/25 History
metoprolol succinate 25 mg 25 mg PO DAILY Blood Pressure 04/17/25 04/17/25 History
tablet,extended release 24 hr
(Toprol XL)
pravastatin 40 mg tablet 40 mg PO DAILY High Cholesterol 04/17/25 04/17/25 History
Review of Systems
-
Unable to obtain full review of systems at this time due to: Patient Intubation
Physical Exam
Vital Signs
Vital Signs
Temp Pulse Resp BP Pulse Ox
97.5 F 82 22 168/38 100
04/18/25 11:11 04/18/25 12:00 04/18/25 12:00 04/18/25 11:50 04/18/25 12:00
Lab Results
WBC 6.2 10^3/uL (4.8-10.8) 04/18/25 04:15
RBC 3.09 10^6/uL (4.20-5.40) L 04/18/25 04:15
Hgb 9.2 g/dL (12.0-16.0) L 04/18/25 04:15
Hct 28.1 % (37.0-47.0) L 04/18/25 04:15
Plt Count 209 10^3/uL (130-400) D 04/18/25 04:15
eGFR Cancelled 04/18/25 11:07
Phosphorus 5.5 mg/dl (2.5-4.5) H 04/18/25 04:15
Albumin 2.6 g/dl (3.5-5.0) L D 04/18/25 04:15
Physical Exam
General no acute distress
HEENT no cephalic atraumatic extraocular muscle intact no scleral icterus no JVD neck supple
lungs c coarse breath sounds
heart regular S1-S2 positive
abdomen soft nontender positive bowel sounds
extremities no edema pulses present bilateral
Neurologically positive gag reflex
Skin no lesions no abrasions no petechiae
Data Reviewed
-
Radiology: Image Personally Visualized and interpreted
CT Scan: Image Personally Visualized and interpreted
Labs: Labs Reviewed by me, Discussed with Physician, Discussed with Nurse and Discussed with Family
Assessment/Plan
-
84y F with PMH significant for A-Fib, HTN and DM-II who presents to ED for evaluation of confusion and N/V.
Severe azotemia and metabolic acidosis and hyperglycemic
Impression.
Acute on chronic kidney disease uncertain baseline
Diabetes with hypoglycemia
UTI
Septic shock
A-fib stable
Acute metabolic acidosis/lactic acidosis on metformin.
Plan.
Status post 3 A of bicarbonate in the emergency room continue bicarbonate drip at 150 cc/h with improved renal function.
Patient is nonoliguric.
pH improved significantly.
No acute need for dialysis although if no improvement in acidosis and lactate may need hemodialysis
Discussed with family at bedside
Serial blood work
Monitor potassium replete as indicated

33 minutes critical care time spent
Total Time Spent with Patient (in minutes): 33
[2025-04-18] MEDS: KCL 270 MEQ IV (12:52)
[2025-04-18] MEDS: NOVOLIN N vial 0.15 UNITS SC (13:29)
[2025-04-18 13:32] LABS: Glucose - Point of Care 385 mg/dl (70-99)
--- NOTE | 2025-04-18 13:45 | PTCARENOTE ---
Pt's daughter and granddaughter Arianne at bedside to visit, updated by Drs. Cordoba and Rod as well as RN. Questions answered, granddaughter speaks Salvadorean and translating for patient's daughter (Tagalog speaking) Pt may need HD depending on
progress, Dr. Brown will readdress with family if needed.
--- NOTE | 2025-04-18 15:06 | PTCARENOTE ---
Addendum entered by Kt Ramos RN 04/18/25 15:08:
Repeat labs and ABG drawn and sent per orders.
Original Note:
Levo titrated per orders for MAP >65, see flowsheet. Pt noted to be moving arms weakly and trying to open eyes to verbal stim.
[2025-04-18 15:33] LABS: Blood Urea Nitrogen 55 mg/dl (7-17); Calcium 6.9 mg/dl (8.4-10.2); Carbon Dioxide 6 mmol/L (22-30); Chloride 97 mmol/L (98-107); Estimated Creatinine Clearance 10 ml/min; Glucose 305 mg/dl (70-99); Potassium 3.8 mmol/L (3.5-5.1); Sodium 136 mmol/L (135-145); eGFR 16.25
--- NOTE | 2025-04-18 16:23 | CM ---
manager report reviewed patient's chart and patient generally goes to [facility], patient was admitted to [facility] ICU and is currently intubated, patient's emergency contact is her granddaughter Annette, and case
manager lighting left a message for patient's granddaughter to discuss social situation however there was no answer.
PCP: Tima Joshi
Pharmacy: [facility]
Plan; Need to follow up with granddaughter, Annette to obtain home set up, patient is intubated.
[2025-04-18 16:26] LABS: Glucose - Point of Care 311 mg/dl (70-99)
[2025-04-18] MEDS: NOVOLIN R 6 UNITS IV (16:34)
[2025-04-18] MEDS: NOVOLIN R INSULIN INFUSION 100 IV (16:36)
--- NOTE | 2025-04-18 16:53 | PTCARENOTE ---
CCGP ordered per Dr. Velasco, bolus and gtt administered per protocol. see flowsheet.
[2025-04-18] MEDS: CALCIUM GLUCONATE 100 IV (16:57)
--- NOTE | 2025-04-18 17:34 | PTCARENOTE ---
Ca Gluconate ordered and hung, plan discussed again with Annealing Furnace Operator, consult for IR placed for HD access. Pt's peripheral IV sites marginally patent on left arm, orders rec'd for PICC line - VAT RN in room to assess pt, IR called to discuss plan
for HD access as well. Pt more awake, moving arms and withdrawing to painful stim, occ opening eyes.
--- NOTE | 2025-04-18 18:17 | PTCARENOTE ---
PICC placement unsuccessful per xray. IR team arrived in room to place HD access, orders for HD tonight received per Dr. Cordoba.
[2025-04-18 18:20] LABS: Glucose - Point of Care 235 mg/dl (70-99)
--- NOTE | 2025-04-18 18:44 | PTCARENOTE ---
IR placed right IJ HD catheter, stat portable CXR ordered. VAT team contacted to reattempt PICC-xray will be done after.
[2025-04-18 19:26] LABS: Blood Urea Nitrogen 50 mg/dl (7-17); Calcium 7.6 mg/dl (8.4-10.2); Carbon Dioxide 6 mmol/L (22-30); Chloride 98 mmol/L (98-107); Estimated Creatinine Clearance 10 ml/min; Glucose 166 mg/dl (70-99); Potassium 3.6 mmol/L (3.5-5.1); Sodium 135 mmol/L (135-145); eGFR 16.97
[2025-04-18 19:28] LABS: Glucose - Point of Care 201 mg/dl (70-99)
[2025-04-18 19:34] VITALS: BP 109/85
--- NOTE | 2025-04-18 20:58 | VATNOTE ---
Placed 5FR DL PICC in left arm earlier this evening. Picc tip coiled on itself. Attempted to re-direct Picc, with another VAT RN, multiple times, per policy but no blood return. Other public health staff nurse present to hold patient's arm and head, but re-direct
attempts still failed. Failed Picc exchanged to Midline.
IR will need to be consulted for more access.
[2025-04-18 20:59] LABS: Glucose - Point of Care 120 mg/dl (70-99)
[2025-04-18] MEDS: LEVOTHROID 40 MCG IV (21:17)
[2025-04-18] MEDS: MANNITOL 25% 12.5 GRAMS IV ×2 (22:10→23:32)
[2025-04-18] MEDS: FLEXBUMIN 25% FOR HEMODIALYSIS 12.5 GRAMS IV ×2 (22:15→23:30)
[2025-04-19] LABS: Glucose - Point of Care 80 mg/dl (70-99)
--- NOTE | 2025-04-19 00:01 | PTCARENOTE ---
Pt remains intubated. B/L restraints applied for safety reasons 2/2 pt weakly moving arms 3/5 strength and risk for self extubation. GCS 8, opens eyes to voice, consistently withdraws to painful stimuli. Uppers 3/5 motion, lowers 1/5. Protective
reflexes intact, pt overbreathing vent. PRN fentanyl push for pain. Precedex gtt initiated as ordered for RASS goal. Afebrile, temp 98.3, off karli hugger all shift thus far. NSR on monitor. Weaning pressors as tolerated to clinical endpoints.
Insulin gtt off for hours due to hypoglycemia. Bicarb gtt remains. Trialysis catheter confirmed on XRAY. HD completed 2.5 hours. No fluid removed. BP tolerated. VAT unable to place PICC line, midline inserted for additional access. Left bar IO
removed. Pulses palpable, no edema. No gi access. Abdomen soft, flat. No BM since admission. Thermistor rush draining cloudy yellow urine, 50-75 hourly. Will monitor.
[2025-04-19] MEDS: NEO-SYNEPHRINE 1% 260 MG IV (00:20)
[2025-04-19] MEDS: SODIUM BICARBONATE 1150 MEQ IV (00:20)
[2025-04-19] MEDS: LEVOPHED 258 MG IV ×3 (00:20→18:01)
[2025-04-19] MEDS: DEXTROSE 50% SYRINGE 12.5 GRAMS IV ×5 (00:54→18:22)
[2025-04-19] MEDS: PRECEDEX 100 IV ×2 (01:22→19:52)
[2025-04-19] MEDS: ZOSYN 50 IV ×4 (01:22→19:37)
[2025-04-19] MEDS: SUBLIMAZE 50 MCG IV ×2 (01:22→15:09)
[2025-04-19 01:26] LABS: Glucose - Point of Care 152 mg/dl (70-99)
--- NOTE | 2025-04-19 02:24 | VATNOTE ---
Left leg IO removed per primary RN request. Patient has sufficient access at this time. Will continue to monitor.
[2025-04-19 02:26] LABS: Glucose - Point of Care 90 mg/dl (70-99)
[2025-04-19 03:35] LABS: B.E. -1.1 mmol/L; HCO3 20.2 mmol/L (21-28); O2 Saturation % 100.0 % (94-98); PCO2 22 mmHg (32-35); PO2 198 mmHg (83-108)
[2025-04-19 03:39] LABS: Glucose - Point of Care 68 mg/dl (70-99)
--- NOTE | 2025-04-19 04:00 | PTCARENOTE ---
No change in previous assessment. Insulin gtt remains off. Electrolyte repletions infusing. Will monitor.
[2025-04-19 04:14] LABS: Hematocrit 22.1 % (37.0-47.0); Hemoglobin 7.9 g/dL (12.0-16.0); Mean Corp Hgb Conc. 35.7 g/dL (33.0-37.0); Mean Corpuscular Volume 80.7 fL (81.0-99.0); Platelet Count 124 10^3/uL (130-400); Red Cell Dist. Width 16.0 % (11.5-14.5)
[2025-04-19 04:23] LABS: Albumin 3.0 g/dl (3.5-5.0); Alkaline Phosphatase 54 U/L (38-126); Blood Urea Nitrogen 19 mg/dl (7-17); Calcium 6.9 mg/dl (8.4-10.2); Carbon Dioxide 19 mmol/L (22-30); Chloride 98 mmol/L (98-107); Estimated Creatinine Clearance 23 ml/min; Glucose 60 mg/dl (70-99); Magnesium 1.4 mg/dl (1.6-2.3); Potassium 3.1 mmol/L (3.5-5.1); Sodium 137 mmol/L (135-145); Total Protein 4.7 g/dl (6.3-8.2); eGFR 44.91
[2025-04-19 04:33] LABS: ALT (SGPT) 143 U/L (0-35); AST (SGOT) 239 U/L (14-36)
[2025-04-19 04:37] LABS: Glucose - Point of Care 85 mg/dl (70-99)
[2025-04-19] MEDS: CALCIUM GLUCONATE 130 MG IV ×2 (05:00→21:56)
[2025-04-19 05:04] LABS: Absolute Neutrophils -Man Diff 6.3 10^3/uL (1.4-6.5); Anisocytosis 1+; Normal RBC Morphology No; Platelets Checked Yes; Total Cells Counted 100
[2025-04-19] MEDS: POTASSIUM PHOSPHATE 259.0909 MEQ IV (05:28)
[2025-04-19] MEDS: MAGNESIUM SULFATE 50 IV (05:28)
[2025-04-19 05:46] LABS: Glucose - Point of Care 56 mg/dl (70-99)
[2025-04-19 06:00] VITALS: BMI 20.8
[2025-04-19 06:10] LABS: Glucose - Point of Care 172 mg/dl (70-99)
--- NOTE | 2025-04-19 07:06 | PHA.VAN.FU ---
Vancomycin Assessment / Plan
- Assessment
Renal Function: SCR Decreasing (2.8->2.7->1,2)
WBC's are: WNL
In the past 24 hrs, patient has been: Afebrile
Concomitant Antimicrobials: Piperacillin/tazo
- Assessment - Therapeutic Drug Monitoring
Random Level: 9.7 ~ 18 h post 1000 mg dose yesterday
- Dosing Plan
Continue: dose by random level
Dosing by Level: Re-dose today (750 mg x 1 dose)
- Monitoring Plan
Random Level: random level AM 04/20
- Follow Up
Pharmacy will continue to follow.
Vancomycin Follow UP
- -
Patient Age: 84
Patient Sex: Female
Vancomycin Day #: 2
Indication: Bacteremia
Requesting Provider: Anish Monique
Height / Weight:
Height 4 ft 11 in
Actual Weight 46.7 kg
Pertinent Past Medical History: BMI <20; NALINI on CKD
- Vital Signs / Lab Results
Temp Pulse Resp BP Pulse Ox
98.1 F 63 16 109/85 100
04/19/25 03:09 04/19/25 06:00 04/19/25 06:00 04/18/25 19:34 04/19/25 06:00
Lab Results - Hematology
04/17/25 04/18/25 04/19/25
19:38 04:15 03:22
WBC 7.7 6.2 7.6
Band Neutrophils 1
Lab Results - Chemistry
04/17/25 04/17/25 04/17/25
19:38 23:46 23:52
BUN 70 H 62 H Cancelled
Creatinine 4.7 H* 3.7 H Cancelled
Estimated Creat Clear 7 Cancelled
Albumin 4.2
04/18/25 04/18/25 04/18/25
04:15 04:15 04:15
BUN Cancelled 59 H
Creatinine Cancelled 3.3 H
Estimated Creat Clear Cancelled
Albumin
04/18/25 04/18/25 04/18/25
04:15 11:06 11:07
BUN 56 H Cancelled
Creatinine 3.0 H Cancelled
Estimated Creat Clear 8 9 Cancelled
Albumin 2.6 L D
04/18/25 04/18/25 04/19/25
15:01 18:50 03:22
BUN 55 H 50 H 19 H
Creatinine 2.8 H 2.7 H 1.2 H
Estimated Creat Clear 10 10 23
Albumin 3.0 L
04/17/25 04/18/25 04/18/25
21:49 04:15 08:43
Lactic Acid 14.6 H* 15.9 H* 15.2 H*
04/18/25 04/18/25 04/19/25
15:01 22:48 03:22
Lactic Acid 20.4 H* 10.0 H* 12.7 H*
Microbiology Results
04/17/25 20:39 Blood Culture - Preliminary
Blood/Venous No Growth in 24 hours- Final report to follow
04/17/25 20:39 Blood Culture - Preliminary
Blood/Venous No Growth in 24 hours- Final report to follow
Therapeutic Drug Monitoring
Random Vancomycin 9.7 ug/ml 04/19/25 03:22
[2025-04-19 07:08] LABS: Glucose - Point of Care 109 mg/dl (70-99)
[2025-04-19] MEDS: MIRALAX TUBE (07:08)
[2025-04-19] MEDS: NSS (PRESERVATIVE FREE) 10 ML IV (07:23)
[2025-04-19] MEDS: PROTONIX IV 40 MG IV (07:23)
[2025-04-19] MEDS: HEPARIN 5000 UNITS SC ×2 (07:24→19:34)
[2025-04-19] MEDS: VANCOCIN 150 IV (07:34)
[2025-04-19 08:09] LABS: Glucose - Point of Care 124 mg/dl (70-99)
--- NOTE | 2025-04-19 08:11 | W.PN.INTV ---
Today's Communication / Plan
Recommendations
Continue HD as per nephrology
Trend lactate level until <2 mmol/L
Stop bicarb drip given that she is now alkalemic
Adjust ventilator to account for alkalemia
Vasopressors titrating to MAP >65
Low level of sedation with Precedex
Urine culture positive � continue antibiotics and follow-up species + sensitivities
Monitor BG with goal 140�180; transition off insulin drip and resume SQ aspart q4hr; consult diabetic COPPER PLATER
Continue ICU level of care for this critically ill patient
Assessment
-
Assessment: 84-year-old female who was found unresponsive. On the morning prior to arrival, she was hypoglycemic with blood sugar 51. Upon EMS arrival, blood sugars were 35. IM glucagon given. Patient was hypotensive for EMS with BP in the
80s/50s. Patient was brought to the ER, and was given additional dextrose with glucose improving to 147, however she remained unresponsive/obtunded and was intubated in the ER. She was found to be hyperkalemic and treated with bicarbonate + calcium
chloride. She was found to be hypothermic (90 �F) via temperature sensing Rocha. Head CT performed showing no acute abnormalities. She was also found to be acidotic with NALINI and nephrology contacted and 2 A of bicarb were given. There were no
recommendations for emergent dialysis. Patient was admitted to the ICU and careers adviser services consulted for additional management/recommendations.
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
Impression:
#Acute hypoxic respiratory failure requiring mechanical ventilation (intubated 04/18/2025 in ER)
#Severe metabolic acidosis with increased anion gap - anion gap now resolved
#Lactic acidosis in the setting of recent metformin use and NALINI on CKD - lactate improving
#NALINI superimposed on CKD (unknown baseline creatinine) - now on iHD
#Anemia
#Elevated INR in the setting of Eliquis use and reduce PO intake prior to arrival
#Hyperglycemia (HbA1c: 5.7 on 04/18/2025) - briefly required insulin drip (now off as of 04/18/2025)
#Hypocalcemia
#Hypomagnesemia
#Transaminitis
#Subclinical hypothyroidism with significantly elevated TSH at 31.5 (free T4: 1.3)
#UTI
#A-fib on Eliquis
Plan:
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
- The family says that for the past 3 days she has been eating less; was last known normal on the morning prior to arrival. Family denies that the patient uses any drugs or drinks alcohol. She does have a history of CKD and normally makes urine
- Continue with mechanical ventilation with daily SAT/SBT if clinically appropriate
- Maintain plateau pressure <30 and titrate FiO2 + PEEP to keep SpO2 >90-94%
- Continue aspiration precautions; keep HOB >30-45�
- prn nebulized bronchodilators - not currently bronchospastic
- Oropharyngeal + deep ETT suctioning with subglottic as needed
- Daily CXR + blood gas
- Daily vent adjustments as needed based on blood gas and SaO2
- Low level of sedation with goal RASS as 0 to -2
- Admission CT head showed no acute intracranial abnormality
- Repeat CT head if she continues to be encephalopathic despite improving metabolic disturbances
- Avoid sedation if possible; currently on low-dose Precedex
- I believe that the reason she initially had no cranial nerve responses was due to the RSI medications used in the ER in the setting of severe NALINI with prolonged clearance
- Her TSH is significantly elevated at 31.5 although her free T4 is WNL at 1.3. Dr. Velasco started her on IV levothyroxine on 04/18, and continue trending her TSH to assess for continued improvement; hospitalist discussed her case with
endocrinology. Recommend to repeat TFTs and consider lowering dose of IV levothyroxine based on repeat TSH if improving; if repeat TSH remains high then continue IV levothyroxine
- Maintain MAP >65
- Continue with vasopressors and wean as tolerated
- Currently on Levophed + vasopressin
- Next pressor to use would be epinephrine vs henrietta if she is tachycardic
- Check echo
- Random cortisol level is 46.2, hence no need for stress dose steroids
- Hold patient's home antihypertensives; will start metoprolol at a low dose as soon as possible to avoid beta-olesya withdrawal
- Nephrology on board; continue HD given her lactic acidosis was continuing to rise on 04/18 in the setting of metformin use OPEN HEARTH WORKER
- Continue to trend serum bicarbonate level; stop bicarb gtt now that she is alkalemic
- Continue to trend lactate until <2mmol/L
- May need CRRT given she remains on vasopressors
- Replete electrolytes with K>4, Mg>2
-Patient was initially given cefepime, and is now on Vanc/Zosyn
- Check MRSA swab
- Urine culture positive, growing GNR: Follow-up species + sensitivities
- Check sputum culture from ETT if a decent sample can be obtained, especially as the right lower lobe now has opacification (?aspiration)
- Follow-up blood cultures drawn on 04/17 (shows NGTD)
- Maintain euglycemia with goal BG 140-180
- Required insulin gtt on 04/18, but now off and BG much more improved
- Transition off insulin gtt back to ISS q4hr and continue to monitor for recurrence of hyperglycema; may need insulin gtt again
- Trend H/H and transfuse if needed to keep Hb>7g/dL; keep plt>20k, unless there is concern for bleeding then keep plt>50k
- Early nutrition when hemodynamics improve
- Insert dobhoff tube for PO access
- DVT ppx: HSQ; continue to trend INR given it was >2 on admission
Code status: Full code
Continue ICU level of care for this critically ill patient.
Critical care statement: A total of 37 minutes of critical care time was provided for this patient today. This includes management of unstable vital signs, evaluation of the patient at bedside, reviewing the patient's pertinent medical records
including radiographs, microbiology, laboratory evaluations, and discussion with primary team, consultants, pharmacy, nutrition, physical therapy, case management, charge nurse, critical care nursing, and respiratory therapy.
Data:
CT Head 04/17/2025: No acute intracranial abnormality noted. No acute intracranial hemorrhage. 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
CXR 04/19/2025: Haziness of each hemidiaphragm, suggestive of bibasilar subsegmental atelectasis. Otherwise clear lungs; Tubes and lines remain in satisfactory position.
Subjective Dataa
Subjective Data
Date of Service:
Date of Service: April 19, 2025
Chief Complaint: Customer Service Specialist Follow Up
Subjective:
Patient seen and evaluated this morning. Started on dialysis overnight with improvement in lactate although still remains elevated. Current heart rate 63, BP via A-line 130/49, and saturating 100% on AC/CMV at 14/300/40%/5 with PIP 20 cmH2O, VTe
283 mL and breathing at 14 breaths/min. Currently on sedation with Precedex at 0.4 mcg/kg/hr, Levophed at 18 mcg/min and vasopressin at 0.03 units/min. She awakens to voice and is trying to move all 4 extremities spontaneously. Of note, she
started to awaken yesterday evening.
Review of Systems
General: Other (Unobtainable as patient is intubated/sedated)
Objective Data
Data Reviewed
Vital Signs / I&O / Oxygen:
Vital Signs
Temp Pulse Resp BP Pulse Ox
99.1 F 65 16 109/85 100
04/19/25 07:22 04/19/25 09:40 04/19/25 09:40 04/18/25 19:34 04/19/25 09:40
Intake and Output
04/18/25 04/19/25 04/20/25
06:59 06:59 06:59
Intake Total 1854.0 / 2173.0 5308.5 / 5749.3 1039.4 / 1039.4
Output Total 495 / 550 1795 / 1875 210 / 210
Balance 1359.0 / 1623.0 3513.5 / 3874.3 829.4 / 829.4
SaO2 [A/C] 100
SaO2 100
Physical Exam
General: Respiratory Distress (negative), Comfortable, Chills (negative) and Sweats (negative)
HEENT: Normocephalic and Anicteric
Cardiovascular: S1-S2, Regular Rhythm, Peripheral Edema (negative) and Cool Extremities
Respiratory: Wheeze (negative), Rhonchi (negative), Stridor (negative), ET Tube (Mechanical breath sounds heard bilaterally) and Other (Coarse breath sounds heard bilaterally)
GI: Soft, Non Distended, Non Tender and Normal Bowel Sounds
Neurology: Tremors (negative) and Other (Minimally responsive although she does awaken to voice and looks around; pupils 3 mm bilaterally and brisk)
Skin: Dry, Cyanosis (negative) and Jaundice (negative)
Labs/Micro/Reports
Lab Data
04/19/25 03:22
04/19/25 03:22
Laboratory Results
04/18/25 04/19/25
12:17 03:22
pH 7.37 7.57 H
pCO2 16 L* 22 L
pO2 166 H 198 H
HCO3 9.2 L* 20.2 L
O2 Delivery Level
Microbiology
04/17/25 20:39 Blood/Venous Blood Culture - Preliminary
No Growth in 24 hours- Final report to follow
04/17/25 20:39 Blood/Venous Blood Culture - Preliminary
No Growth in 24 hours- Final report to follow
--- NOTE | 2025-04-19 08:24 | PTCARENOTE ---
Rec'd pt at 0700. Pt on vent, grimaces and withdraws to painful stimuli. Pt not opening eyes or following any commands. Monitor SR. Right radial a-line in place-zeroed, Levophed gtts titrated to keep MAP >65. Lungs dim, pox 97% on 40% fio2. +BS, abd
soft/nt. Rush draining cloudy yellow urine-rush care completed. Pt on Q1hr accuchecks, Insulin gtts remains off per protocol. HD starting at bedside at this time.
[2025-04-19 09:10] LABS: Glucose - Point of Care 111 mg/dl (70-99)
--- NOTE | 2025-04-19 09:27 | CM ---
chart reviewed: Anticipated Discharge: > 48 hours
Case Management will monitor and support disposition plan when determined
[2025-04-19] MEDS: MANNITOL 25% 12.5 GRAMS IV ×2 (09:40→11:30)
[2025-04-19] MEDS: FLEXBUMIN 25% FOR HEMODIALYSIS 12.5 GRAMS IV ×2 (09:45→11:25)
[2025-04-19 10:06] LABS: Glucose - Point of Care 100 mg/dl (70-99)
--- NOTE | 2025-04-19 10:14 | PTCARENOTE ---
On HD--Levophed gtts up to 26mcg/min, MAP dropping down to 58 at times, Vaso gtts restarted--MAP 70's at this time.
[2025-04-19] MEDS: SODIUM BICARBONATE IV (11:25)
--- NOTE | 2025-04-19 11:32 | VATNOTE ---
RAC infiltrate site improving
--- NOTE | 2025-04-19 12:09 | W.PN.HOSP.TC ---
Addendum entered and electronically signed by Anish Becker DO 04/19/25 18:11:
Repeat TSH 15.3, free T4 1.5.
I spoke with endocrinology, Dr. Espinoza. She recommended levothyroxine 25 mcg IV daily, check TSH once a week, if she recovers and is able to take oral would use 50 mcg p.o. daily.
Addendum entered and electronically signed by Anish Becker, 04/19/25 17:49:
I tried to get a hold of the granddaughter, left her voicemail. Tried to get consent for blood transfusion in case she needs it.
Discussed with nursing.
Acute thrombocytopenia along with acute anemia noted.
Doubt TTP as her platelet count on presentation was normal. Discussed with hematology on-call, Dr. Salamanca.
No evidence of hemolysis. Bilirubin has been normal so far. Will add LDH.
Will check fibrinogen, PT, PTT at 8 PM tonight. Rule out DIC although clinically unlikely. Nursing does not report any bleeding.
Original Note:
Today's Communication/Plan
-
Hemodialysis
Monitor hemoglobin
Start tube feeds per strap stitcher discretion
Increase dose of Zosyn, await cultures
Assessment / Plan
Assessment / Plan
Gen-intubated, sedated
HEENT-NC, AT, anicteric, clear oral mm
Neck-supple
CV-reg, no M, +S1/S2
Lungs-clear B/L
Abd-soft, NT, ND
Ext-no edema
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
Skin-warm and dry
Acute metabolic encephalopathy -most likely multifactorial etiology including hypoglycemia, hypotension, severe metabolic acidosis, NALINI, etc.
CT head on admission shows no acute abnormality. No hemorrhage. 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 Baseline cognition unknown.
Remains encephalopathic per nursing.
Acute hypoxic respiratory failure -intubated for airway protection given obtundation on presentation. Central Sterilization Technician consulted. Continue ICU monitoring.
Chest x-ray this morning shows haziness of each hemidiaphragm, suggestive of bibasilar subsegmental atelectasis. Otherwise clear lungs.
Shock -septic versus cardiogenic versus hypovolemic versus other. Currently stable hemodynamically on Levophed and vasopressin. Wean down as able. Weight appears to be up at least 5 kg since admission. Now off IV fluids. Did receive IV albumin
as ordered by nephrology.
Blood cultures negative so far, urine culture greater than 100,000 gram-negative bacilli. Urinalysis does show pyuria. Continue IV Zosyn, Vanco for now.
NALINI -likely due to shock, hypotension, ATN, hypovolemia, etc.
Initiated hemodialysis last night, currently getting second dialysis session. Discussed with nephrology.
Acute ischemic hepatitis -elevated transaminases, likely due to the shock. Bilirubin and alkaline phosphatase normal.
High AG metabolic acidosis -presentation with shock, lactic acidosis, NALINI. Serum bicarbonate 19 this morning. Off bicarb infusion. Lactic acidosis persists, 12.7, unclear why lactate level is not improving despite some clinical improvement.
Hypothermia -resolved.
TSH 31, free T4 normal at 1.3. 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 Recommend repeat thyroid labs as an outpatient.
Empirically started on IV levothyroxine by strap stitcher.
Random cortisol more than adequate, 46.2.
Hypernatremia -resolved.
Hyperkalemia -resolved. Now she is hypokalemic. Should correct on hemodialysis.
Hypomagnesemia -getting repleted.
Hyperphosphatemia -resolved. Now hypophosphatemic. Received IV potassium phosphate this morning.
DM2 with hypoglycemia/hyperglycemia -presentation with glucose 45, reportedly glucose in the 20s at home. Metformin listed as the only diabetes medication. Required insulin IV infusion on 04/18, glucoses subsequently improved and did have
hypoglycemia. Currently off IV insulin. Last Accu-Chek 100.
Hemoglobin A1c 5.7%.
Atrial fibrillation, unknown type -hold amiodarone and Eliquis. Admission EKG with sinus rhythm and first-degree AV block. Nonspecific intraventricular conduction block.
Acute anemia -presentation with hemoglobin 10.6, 9.2 yesterday, 7.9 today. Will trend. Monitor for any bleeding.
Acute thrombocytopenia -124k today. Possibly due to critical illness, shock, etc. Unlikely to be HIT.
Full code
Anticipated Discharge: > 48 hours
Subjective/Interval History
-
Date of Service: April 19, 2025
Patient seen and examined. Remains intubated, sedated.
Objective Data
-
Labs:
Laboratory Results
04/19/25 04/19/25
03:22 14:00
WBC 7.6 Pending
Hgb 7.9 L Pending
Hct 22.1 L Pending
Plt Count 124 L D Pending
HCO3 20.2 L
Sodium 137 Pending
Potassium 3.1 L Pending
Chloride 98 Pending
Carbon Dioxide 19 L Pending
BUN 19 H Pending
Creatinine 1.2 H Pending
Glucose 60 L Pending
Calcium 6.9 L* Pending
Total Bilirubin 0.9 Pending
AST 239 H Pending
ALT 143 H Pending
Alkaline Phosphatase 54 Pending
Vital Signs:
Vital Signs
Temp Pulse Resp BP Pulse Ox
98.2 F 59 14 109/85 100
04/19/25 12:06 04/19/25 11:30 04/19/25 11:30 04/18/25 19:34 04/19/25 12:00
I&O
04/18/25 04/19/25 04/20/25
06:59 06:59 06:59
Intake Total 1854.0 / 2173.0 5308.5 / 5749.3 1039.4 / 1039.4
Output Total 495 / 550 1795 / 1875 210 / 210
Balance 1359.0 / 1623.0 3513.5 / 3874.3 829.4 / 829.4
Review of Systems
-
History Source: Patient
All other systems: Reviewed and negative
--- NOTE | 2025-04-19 12:15 | PTCARENOTE ---
Pt more arousable at this time. Opening eyes, turns head towards voice and making eye contact. +language barrier, difficult to assess if pt can follow commands. Pt restless at times, thrashes head back and forth briefly RASS +1, remains on Precedex
gtts-adjusted per RASS. HD ongoing at bedside.
[2025-04-19 12:16] LABS: Glucose - Point of Care 93 mg/dl (70-99)
--- NOTE | 2025-04-19 12:30 | PTCARENOTE ---
HD completed. BP now improved. Vasopressin turned off.
--- NOTE | 2025-04-19 12:48 | W.PN.NEPH.PH ---
Today's Communication / Plan
-
Tolerated dialysis
Dialysis on a as needed basis
Assessment/Plan
-
84y F with PMH significant for A-Fib, HTN and DM-II who presents to ED for evaluation of confusion and N/V.
Severe azotemia and metabolic acidosis and hyperglycemic
Impression.
Acute on chronic kidney disease uncertain baseline
Diabetes with hypoglycemia
UTI
Septic shock
A-fib stable
Acute metabolic acidosis/lactic acidosis on metformin.
Plan.
Status post 3 A of bicarbonate in the emergency room continue bicarbonate drip at 150 cc/h with improved renal function.
Patient is nonoliguric.
Acid-base status improved with initiation of dialysis 04/18.
Completed dialysis again today.
Improved renal function and acidosis though lactic acidosis continues to increase despite relatively controlled blood pressure on pressors.
Possibly from the metformin versus perfusion
I did not order dialysis for tomorrow will reevaluate on a daily basis

33 minutes critical care time spent
-
-
Date of Service: April 19, 2025
CC / HPI / ROS
-
Chief Complaint:
Septic shock
History of Present Illness:
Presents with altered mental status abnormal labs and septic shock requiring acute hemodialysis
Review of Systems:
intubated
Labs
-
Labs:
eGFR 44.91 04/19/25 03:22
Physical Exam
-
Vital Signs:
Vital Signs
Temp Pulse Resp BP Pulse Ox
98.2 F 54 14 109/85 100
04/19/25 12:06 04/19/25 12:30 04/19/25 12:30 04/18/25 19:34 04/19/25 12:30
--- NOTE | 2025-04-19 12:51 | W.PN.NEPH.HD ---
Assessment
-
Tolerated dialysis with pressor support
Progress Note - Hemodialysis
-
Date of Service: April 19, 2025
Duration: 3 hours
Potassium Bath: 3
Calcium Bath: 2.5
Opti-Dialyzer: 160
Blood Flow: 300
Dialysate Flow: 600
--- NOTE | 2025-04-19 13:50 | PTCARENOTE ---
Vasopressin remains off, Levo down to 12mcg/min, MAP ~65. 1400 Labs sent.
[2025-04-19 14:07] LABS: Venous Blood Gas B.E. 5.4 mmol/L (-4 to +4); Venous Blood Gas O2 Sat % 99.7 %
[2025-04-19 14:27] LABS: AST (SGOT) 184 U/L (14-36); Albumin 3.0 g/dl (3.5-5.0); Alkaline Phosphatase 68 U/L (38-126); Blood Urea Nitrogen 6 mg/dl (7-17); Calcium 7.6 mg/dl (8.4-10.2); Carbon Dioxide 26 mmol/L (22-30); Chloride 102 mmol/L (98-107); Estimated Creatinine Clearance 48 ml/min; Glucose 74 mg/dl (70-99); Magnesium 1.8 mg/dl (1.6-2.3); Potassium 2.8 mmol/L (3.5-5.1); Sodium 136 mmol/L (135-145); Total Protein 4.5 g/dl (6.3-8.2); eGFR > 60.00
[2025-04-19 14:36] LABS: ALT (SGPT) 118 U/L (0-35)
[2025-04-19 14:37] LABS: Hematocrit 20.8 % (37.0-47.0); Hemoglobin 7.5 g/dL (12.0-16.0); Mean Corp Hgb Conc. 36.1 g/dL (33.0-37.0); Mean Corpuscular Volume 81.3 fL (81.0-99.0); Platelet Count 101 10^3/uL (130-400); Red Cell Dist. Width 16.2 % (11.5-14.5)
[2025-04-19] MEDS: KCL 100 IV (15:24)
--- NOTE | 2025-04-19 15:50 | PTCARENOTE ---
1445-Dr. Velasco notified of 1400 lab results-repletements ordered. Vent changes made by resp therapist per MD for VBG results. DHT inserted per orders, awaiting KUB results for placement confirmation.
[2025-04-19 16:09] LABS: TSH 15.30 uIU/ml (0.47-4.68)
[2025-04-19 16:19] LABS: Glucose - Point of Care 44 mg/dl (70-99)
--- NOTE | 2025-04-19 16:30 | PTCARENOTE ---
1600 blood glucose 44, 1/2amp D50 given. Repeat in 15min BG-132
[2025-04-19 16:35] LABS: Glucose - Point of Care 132 mg/dl (70-99)
[2025-04-19] MEDS: NOVOLOG FLEXPEN-MODERATE RESISTANCE SC ×3 (16:37→23:53)
[2025-04-19] MEDS: LEVOTHROID 40 MCG IV (17:11)
[2025-04-19] MEDS: MAGNESIUM OXIDE 500 MG TUBE (17:11)
[2025-04-19] MEDS: NEUTRA-PHOS POWDER PACKET 500 MG TUBE (17:11)
--- NOTE | 2025-04-19 17:31 | PTCARENOTE ---
DHT with +placement per KUB, Mag and Neutra-Phos given via tube.
[2025-04-19 18:32] LABS: Glucose - Point of Care 58 mg/dl (70-99)
--- NOTE | 2025-04-19 18:38 | PTCARENOTE ---
1800-Osmolite 1.2 started at 20mls/hr via DHT. 1820-BG 58, 1/2amp D50 given. Repeat BG in 15 min 155.
[2025-04-19 18:49] LABS: Glucose - Point of Care 155 mg/dl (70-99)
[2025-04-19 20:00] VITALS: BP 121/65
--- NOTE | 2025-04-19 20:00 | PTCARENOTE ---
Rec'd pt sedated on precedex gtt at 0.6, wrists restrained for pt safety, MALDONADO spont, TAZ at 1mm, sluggish, pt has language barrier, SR/ Sinus enrique, R rad maritza w/ good wave form, flushes well, zeroed, accurate to cuff, to keep MAP> 65, double conc
levo at 11 maryann- see flow sheet for titrations, karli marin on for temp 96.6, weak distal pulses, #7.5 oral ett- moved to left side at 20cm, ac 14, tv 300, 5 peep, 40%, sat 100, lungs decr, scant yellow sputum, + bowel sounds, no bm, abd soft, no
vomiting, rec osmolyte 1.2 at 20ml/hr & 15ml/hr h20 flush , rush draining yellow urine w/ sediment
[2025-04-19 20:03] VITALS: BP 121/65
[2025-04-19 20:17] LABS: B.E. 1.6 mmol/L; HCO3 25.7 mmol/L (21-28); O2 Saturation % 99.6 % (94-98); PCO2 37 mmHg (32-35); PO2 141 mmHg (83-108)
[2025-04-19 20:21] LABS: Glucose - Point of Care 92 mg/dl (70-99)
[2025-04-19 20:30] LABS: INR 1.88; PT 21.8 Sec (11.4-14.6)
[2025-04-19 20:31] LABS: APTT 65.9 Sec (23.4-35.0)
[2025-04-19 20:36] LABS: Fibrinogen 131 MG/DL (199-459)
[2025-04-19 20:59] LABS: Blood Urea Nitrogen 8 mg/dl (7-17); Calcium 7.3 mg/dl (8.4-10.2); Carbon Dioxide 23 mmol/L (22-30); Chloride 103 mmol/L (98-107); Estimated Creatinine Clearance 42 ml/min; Glucose 93 mg/dl (70-99); Magnesium 1.9 mg/dl (1.6-2.3); Potassium 4.0 mmol/L (3.5-5.1); Sodium 137 mmol/L (135-145); eGFR > 60.00
--- NOTE | 2025-04-19 21:00 | PTCARENOTE ---
Seema Moon NP aware of labes, to recheck lactic in am, vent changes per order- ac 12, tv 300, 5 peep, 30%
[2025-04-19 21:11] LABS: LDH 282 U/L (120-246)
[2025-04-19] MEDS: MAGNESIUM SULFATE 100 IV (21:42)
--- NOTE | 2025-04-19 21:42 | PTCARENOTE ---
1 gm mag sulfate hung over 1hr per order
[2025-04-19] MEDS: SODIUM PHOSPHATE 255 MEQ IV (21:56)
--- NOTE | 2025-04-19 21:57 | PTCARENOTE ---
3 gm zach gluconate hung over 1 hr, 20 meq na phosphate hung over 4 hr per order
[2025-04-19 22:32] LABS: Glucose - Point of Care 82 mg/dl (70-99)
--- NOTE | 2025-04-20 | PTCARENOTE ---
sys reviewed, changes bnoted, CHG bath done, linens changed, karli tania off, temp 97
[2025-04-20 00:02] LABS: Glucose - Point of Care 106 mg/dl (70-99)
--- NOTE | 2025-04-20 01:49 | PTCARENOTE ---
tube fdg incr to goal of 35ml/hr & 15ml h20 flush
[2025-04-20] MEDS: ZOSYN 50 IV ×3 (02:21→17:00)
[2025-04-20 03:27] LABS: Glucose - Point of Care 158 mg/dl (70-99)
[2025-04-20] MEDS: NOVOLOG FLEXPEN-MODERATE RESISTANCE 1 UNITS SC ×2 (03:28→07:56)
[2025-04-20 03:31] LABS: B.E. 0.5 mmol/L; HCO3 23.8 mmol/L (21-28); O2 Saturation % 99.4 % (94-98); PCO2 32 mmHg (32-35); PO2 96 mmHg (83-108)
[2025-04-20 03:46] VITALS: BMI 21.3
[2025-04-20 03:51] LABS: Hematocrit 22.3 % (37.0-47.0); Hemoglobin 8.0 g/dL (12.0-16.0); Mean Corp Hgb Conc. 35.9 g/dL (33.0-37.0); Mean Corpuscular Volume 82.0 fL (81.0-99.0); Platelet Count 96 10^3/uL (130-400); Red Cell Dist. Width 16.7 % (11.5-14.5)
[2025-04-20 03:55] LABS: AST (SGOT) 151 U/L (14-36); Albumin 2.5 g/dl (3.5-5.0); Alkaline Phosphatase 106 U/L (38-126); Blood Urea Nitrogen 9 mg/dl (7-17); Calcium 8.0 mg/dl (8.4-10.2); Carbon Dioxide 24 mmol/L (22-30); Chloride 103 mmol/L (98-107); Estimated Creatinine Clearance 36 ml/min; Glucose 137 mg/dl (70-99); Magnesium 2.1 mg/dl (1.6-2.3); Potassium 3.8 mmol/L (3.5-5.1); Sodium 136 mmol/L (135-145); Total Protein 4.2 g/dl (6.3-8.2); eGFR > 60.00
--- NOTE | 2025-04-20 03:55 | PTCARENOTE ---
sys reviewed, changes noted, ett repos on r side at 20cm, awakens easily w/ stimulation
[2025-04-20 04:06] LABS: ALT (SGPT) 110 U/L (0-35)
[2025-04-20 04:24] LABS: Nucleated Red Blood Cells % 0 %
[2025-04-20 04:39] LABS: INR 1.83; PT 21.4 Sec (11.4-14.6)
[2025-04-20 07:01] VITALS: BMI 21.3
[2025-04-20] MEDS: SUBLIMAZE 50 MCG IV ×2 (07:20→13:54)
[2025-04-20] MEDS: NSS (PRESERVATIVE FREE) 10 ML IV (07:21)
[2025-04-20] MEDS: HEPARIN 5000 UNITS SC (07:21)
[2025-04-20] MEDS: PROTONIX IV 40 MG IV (07:21)
[2025-04-20] MEDS: MIRALAX 17 GRAMS TUBE (07:22)
--- NOTE | 2025-04-20 07:36 | W.PN.INTV ---
Today's Communication / Plan
Recommendations
Adjust ventilator
Spontaneous breathing trial
Wean pressors
Antibiotics
Insulin as needed
Assessment
-
Assessment: 84-year-old female who was found unresponsive. On the morning prior to arrival, she was hypoglycemic with blood sugar 51. Upon EMS arrival, blood sugars were 35. IM glucagon given. Patient was hypotensive for EMS with BP in the
80s/50s. Patient was brought to the ER, and was given additional dextrose with glucose improving to 147, however she remained unresponsive/obtunded and was intubated in the ER. She was found to be hyperkalemic and treated with bicarbonate + calcium
chloride. She was found to be hypothermic (90 �F) via temperature sensing Rocha. Head CT performed showing no acute abnormalities. She was also found to be acidotic with NALINI and nephrology contacted and 2 A of bicarb were given. There were no
recommendations for emergent dialysis. Patient was admitted to the ICU and spinning bath patroller services consulted for additional management/recommendations.
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
Impression:
#Acute hypoxic respiratory failure requiring mechanical ventilation (intubated 04/18/2025 in ER)
#Severe metabolic acidosis with increased anion gap - anion gap now resolved
#Lactic acidosis in the setting of recent metformin use and NALINI on CKD - lactate improving
#NALINI superimposed on CKD (unknown baseline creatinine) - now on iHD
#Anemia
#Elevated INR in the setting of Eliquis use and reduce PO intake prior to arrival
#Hyperglycemia (HbA1c: 5.7 on 04/18/2025) - briefly required insulin drip (now off as of 04/18/2025)
#Hypocalcemia
#Hypomagnesemia
#Transaminitis
#Subclinical hypothyroidism with significantly elevated TSH at 31.5 (free T4: 1.3)
#UTI
#A-fib on Eliquis
Plan:
- Patient was found minimally responsive morning PACKING SUPERVISOR and was 'breathing funny' - was found to have significant lactic acidosis with NALINI and was intubated for airway protection
- The family says that for the past 3 days she has been eating less; was last known normal on the morning prior to arrival. Family denies that the patient uses any drugs or drinks alcohol. She does have a history of CKD and normally makes urine
- Continue with mechanical ventilation with daily SAT/SBT if clinically appropriate
- Maintain plateau pressure <30 and titrate FiO2 + PEEP to keep SpO2 >90-94%
- Continue aspiration precautions; keep HOB >30-45�
- prn nebulized bronchodilators - not currently bronchospastic
- Oropharyngeal + deep ETT suctioning with subglottic as needed
- Daily CXR + blood gas
- Daily vent adjustments as needed based on blood gas and SaO2
- Low level of sedation with goal RASS as 0 to -2
-SVT 04/20/2025-over 40 sec apneas, ABG noted with some iatrogenic respiratory alkalosis-adjust ventilator and retry SBT-reviewed with STAVE GRADER
- Admission CT head showed no acute intracranial abnormality
- Repeat CT head if she continues to be encephalopathic despite improving metabolic disturbances
- Avoid sedation if possible; currently on low-dose Precedex
- believe that the reason she initially had no cranial nerve responses was due to the RSI medications used in the ER in the setting of severe NALINI with prolonged clearance
- Her TSH is significantly elevated at 31.5 although her free T4 is WNL at 1.3. Dr. Velasco started her on IV levothyroxine on 04/18, and continue trending her TSH to assess for continued improvement; hospitalist discussed her case with
endocrinology. Recommend to repeat TFTs and consider lowering dose of IV levothyroxine based on repeat TSH if improving; if repeat TSH remains high then continue IV levothyroxine
- Maintain MAP >65
- Continue with vasopressors and wean as tolerated
- Currently on Levophed
- Check echo- pending
- Random cortisol level is 46.2, hence no need for stress dose steroids
- Hold patient's home antihypertensives; will start metoprolol at a low dose as soon as possible to avoid beta-olesya withdrawal
- Nephrology on board; continue HD given her lactic acidosis was continuing to rise on 04/18 in the setting of metformin use PACKING SUPERVISOR- correspondence reviewed
- Continue to trend serum bicarbonate level; stop bicarb gtt now that she is alkalemic
- Continue to trend lactate until <2mmol/L
- Replete electrolytes with K>4, Mg>2
-Patient was initially given cefepime, and is now on Vanc/Zosyn
- Check MRSA swab
- Urine culture positive, growing GNR: Follow-up species + sensitivities
- Check sputum culture from ETT if a decent sample can be obtained, especially as the right lower lobe now has opacification (?aspiration)- Pending 04/19/2025
- Follow-up blood cultures drawn on 04/17 (shows NGTD)
- Maintain euglycemia with goal BG 140-180
- Required insulin gtt on 04/18, but now off and BG much more improved
- Transition off insulin gtt back to ISS q4hr and continue to monitor for recurrence of hyperglycema;
- Trend H/H and transfuse if needed to keep Hb>7g/dL; keep plt>20k, unless there is concern for bleeding then keep plt>50k
- Early nutrition when hemodynamics improve
- Insert dobhoff tube for PO access
- DVT ppx: HSQ; continue to trend INR given it was >2 on admission
Code status: Full code
Continue ICU level of care for this critically ill patient.
Critical care statement: A total of 45 minutes of critical care time was provided for this patient today. This includes management of unstable vital signs, evaluation of the patient at bedside, reviewing the patient's pertinent medical records
including radiographs, microbiology, laboratory evaluations, and discussion with primary team, consultants, pharmacy, nutrition, physical therapy, case management, charge nurse, critical care nursing, and respiratory therapy.
Data:
CT Head 04/17/2025: No acute intracranial abnormality noted. No acute intracranial hemorrhage. 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
CXR 04/19/2025: Haziness of each hemidiaphragm, suggestive of bibasilar subsegmental atelectasis. Otherwise clear lungs; Tubes and lines remain in satisfactory position.
Subjective Dataa
Subjective Data
Date of Service:
Date of Service: April 20, 2025
Chief Complaint: Finishing Lab Technician Follow Up, Pulmonary Follow Up and Vent Management Follow Up
Subjective:
Remains on the ventilator, no increase secretions, apneic on spontaneous breathing trial, still on some pressors, lactate improved, review of systems unobtainable as on ventilator and sedated
Review of Systems
General: Other (Per HPI)
Objective Data
Data Reviewed
Vital Signs / I&O / Oxygen:
Vital Signs
Temp Pulse Resp BP Pulse Ox
97.3 F 58 12 121/65 100
04/20/25 07:09 04/20/25 06:05 04/20/25 06:00 04/19/25 20:03 04/20/25 06:00
Intake and Output
04/19/25 04/20/25 04/21/25
06:59 06:59 06:59
Intake Total 5308.5 / 5749.3 2867.3 / 2867.3
Output Total 1795 / 1875 1405 / 1405
Balance 3513.5 / 3874.3 1462.3 / 1462.3
SaO2 [A/C] 100
SaO2 100
Physical Exam
General: Respiratory Distress (negative), Comfortable, Chills (negative) and Sweats (negative)
HEENT: Normocephalic and Anicteric
Cardiovascular: Regular Rhythm, Peripheral Edema (negative) and Cool Extremities
Respiratory: Wheeze (negative), Rhonchi (negative), Stridor (negative), ET Tube (Mechanical breath sounds heard bilaterally) and Other (Coarse breath sounds heard bilaterally)
GI: Soft, Non Distended, Non Tender and Normal Bowel Sounds
Neurology: No Motor Deficits, Tremors (negative) and Other (Minimally responsive although she does awaken to voice and looks around; pupils 3 mm bilaterally and brisk)
Skin: Warm, Good Color, Cyanosis (negative) and Jaundice (negative)
Labs/Micro/Reports
Lab Data
04/20/25 03:17
04/20/25 03:17
Laboratory Results
04/19/25 04/19/25 04/20/25
20:11 21:00 03:17
PT 21.8 H 21.4 H
INR 1.88 1.83
APTT 65.9 H
pH 7.45 Cancelled 7.48 H
pCO2 37 H Cancelled 32
pO2 141 H Cancelled 96
HCO3 25.7 Cancelled 23.8
O2 Delivery Level Cancelled
Microbiology
04/17/25 20:39 Blood/Venous Blood Culture - Preliminary
No Growth in 48 hours- Final report to follow
04/17/25 20:39 Blood/Venous Blood Culture - Preliminary
No Growth in 48 hours- Final report to follow
04/17/25 20:21 Urine Urine Culture - Preliminary
Gram negative bacilli
[2025-04-20 07:55] VITALS: BP 115/51
[2025-04-20 07:59] LABS: Glucose - Point of Care 79 mg/dl (70-99)
[2025-04-20 08:04] LABS: Glucose - Point of Care 183 mg/dl (70-99)
[2025-04-20 08:14] VITALS: BP_SYST 115
--- NOTE | 2025-04-20 08:40 | PN.DE.MGMTRT ---
Insulin Management
- -
04/20/25: Diabetes Management Consult
84 year old female who was found unresponsive. PMH: Significant for A-Fib, HTN and T2DM. Pt was noted hypotension for EMS with BP in the 80s/50s and hypoglycemia with blood sugar of 35. Treated with dextrose and glucose improved to 147, however she
remained unresponsive/obtunded and was intubated in the ER. She was noted for severe azotemia and metabolic acidosis and hypoglycemia upon arrival to the ED. Her glucose was reportedly in the 20s earlier at home. Metformin is the only diabetes
medication listed. Hemoglobin A1C 5.7%, Cr 0.8, eGFR > 60.
Glucoses subsequently improved and pt developed hyperglycemia, requiring insulin infusion, critical care glycemic protocol was briefly started on 04/18 for 4 hrs.
Pt remains in ICU, intubated and sedated, unable to interview, no family at bedside.
Currently NPO, on Tube feeds, off IV insulin infusion--> moderate corrective Q 4hrs only.
Blood glucose was stable up until initiation of tube feeds, FBG was 183 this AM, required 1 unit of corrective insulin.
Tube feed rate has been increased to 35 cc/hr, glucose trending up, noon accuchek was 301.
Will start Lantus 12 units daily @ Noon, 1 dose now. Start NovoLog 4 units Q6hrs, cont moderate corrective
Discussed with Nurse and ICU pharmacy staff.
Will cont to monitor and closely monitor glucose trend and adjust insulin dose if necessary.
Diabetes History
- -
Type of Diabetes: 2 requiring insulin
Pre-Admission Diabetes Regimen
04/19/25 04/19/25 04/19/25
13:46 15:45 20:11
Creatinine 0.5 L Cancelled 0.7
04/19/25 04/20/25
21:00 03:17
Creatinine Cancelled 0.8
Lab Results
Hemoglobin A1c 5.7 % (4.0-5.6) H 04/18/25 04:15
Insulin Pump Settings
IP Diabetes Regimen
04/18/25 04/19/25 04/19/25
22:49 08:58 09:53
Glucose
POC Glucose 79 111 H 100 H
04/19/25 04/19/25 04/19/25
12:04 13:46 15:45
Glucose 74 Cancelled
POC Glucose 93
04/19/25 04/19/25 04/19/25
16:01 16:23 18:20
Glucose
POC Glucose 44 L* 132 H 58 L
04/19/25 04/19/25 04/19/25
18:38 20:09 20:11
Glucose 93
POC Glucose 155 H 92
04/19/25 04/19/25 04/19/25
21:00 22:20 23:51
Glucose Cancelled
POC Glucose 82 106 H
04/20/25 04/20/25 04/20/25
03:15 03:17 07:53
Glucose 137 H
POC Glucose 158 H 183 H
Meal type: Breakfast
Patient Education
--- NOTE | 2025-04-20 08:41 | PTCARENOTE ---
report received, assessments per work list. patient arousable, does not follow commands, becomes agitated with care. increased nonverbal pain cues, medicated with fentanyl per prn order. right IJ HD with pigtail, gtts infusing via pig tail.
generalized anasarca. arms weeping. left midline patent, dressing bloody, oozing. VAT team notified. ett to vent, RT attempted SBT, patient apneic. Precedex wean for sbt. will reattempt. right nare Dobbhoff patent for feeds. abdomen soft. rush
draining clear yellow urine. Aircraft De Icer Installer [email or web address]. restraints maintained for patient safety. monitor enrique with avb. right radial arterial line positional. Levophed titration for map 65
[2025-04-20] MEDS: ZOSYN IV (09:05)
--- NOTE | 2025-04-20 09:31 | W.PN.NEPH.PH ---
Today's Communication / Plan
-
follow lactate
Assessment/Plan
-
84y F with PMH significant for A-Fib, HTN and DM-II who presents to ED for evaluation of confusion and N/V.
Severe azotemia and metabolic acidosis and hyperglycemic
Impression.
Acute on chronic kidney disease uncertain baseline
Diabetes with hypoglycemia
UTI
Septic shock
A-fib stable
Acute metabolic acidosis/lactic acidosis on metformin.
Plan.
no dialysis this am
follow lactate, If it continues to rise, may need to consider another HD tx, especially if there is concern that it is related to metformin
maintain MAP > 65
follow BMP
follow UOP
IVF
continue TF/FWF, at goal
critical care time 31 minutes
-
-
Date of Service: April 20, 2025
CC / HPI / ROS
-
Chief Complaint:
Septic shock
History of Present Illness:
Presents with altered mental status abnormal labs and septic shock requiring acute hemodialysis
critically ill in ICU on pressors, vent
UOP oliguric
lactic acid remains elevated 5.3
tolerated HD yesterday
required fentanyl this am for agitation
Review of Systems:
intubated, sedated
Labs
-
Labs:
WBC 7.7 10^3/uL (4.8-10.8) 04/20/25 03:17
RBC 2.72 10^6/uL (4.20-5.40) L 04/20/25 03:17
Hgb 8.0 g/dL (12.0-16.0) L 04/20/25 03:17
Hct 22.3 % (37.0-47.0) L 04/20/25 03:17
Plt Count 96 10^3/uL (130-400) L 04/20/25 03:17
Sodium 136 mmol/L (135-145) 04/20/25 03:17
Potassium 3.8 mmol/L (3.5-5.1) 04/20/25 03:17
Chloride 103 mmol/L (98-107) 04/20/25 03:17
Carbon Dioxide 24 mmol/L (22-30) 04/20/25 03:17
BUN 9 mg/dl (7-17) 04/20/25 03:17
Creatinine 0.8 mg/dL (0.6-1.0) 04/20/25 03:17
eGFR > 60.00 04/20/25 03:17
Glucose 137 mg/dl (70-99) H 04/20/25 03:17
Calcium 8.0 mg/dl (8.4-10.2) L 04/20/25 03:17
Phosphorus 3.7 mg/dl (2.5-4.5) 04/20/25 03:17
Albumin 2.5 g/dl (3.5-5.0) L 04/20/25 03:17
Physical Exam
-
Vital Signs:
Vital Signs
Temp Pulse Resp BP Pulse Ox
97.3 F 60 28 115/51 100
04/20/25 07:09 04/20/25 09:15 04/20/25 09:15 04/20/25 07:55 04/20/25 09:00
Cardiovascular:: Regular rate and rhythm
Respiratory:: Bilateral: Coarse
Lung Excursion:: Normal
Abdomen:: Nontender and Soft
Bowel Sounds:: Normal
Extremity Edema:: None: Bilateral:
[2025-04-20 09:55] VITALS: BP_SYST 119
--- NOTE | 2025-04-20 09:55 | VATNOTE ---
Vat rounds. Noted left arm midline saturated with blood around the insertion site. Midline leaking around the insertion site and continues to bleed. Midline removed . Primary RN made aware.
[2025-04-20] MEDS: LEVOPHED 258 MG IV (09:59)
[2025-04-20] MEDS: NSS 1000 IV (10:02)
--- NOTE | 2025-04-20 10:16 | PHA.VAN.FU ---
Vancomycin Assessment / Plan
- Assessment
Renal Function: SCR Decreasing
Last Hemodialysis performed: On 04/19
WBC's are: WNL
In the past 24 hrs, patient has been: Afebrile
Concomitant Antimicrobials: pip/tazo
- Assessment - Therapeutic Drug Monitoring
Random Level: 11.7 drawn ~20 hrs post dose on 04/19
- Dosing Plan
Dosing by Level: Re-dose today (500 mg)
Patient will not receive dialysis today (04/20). Will give a lower dose to see how it will be cleared
- Monitoring Plan
Random Level: 04/21 @ 0600
- Follow Up
Pharmacy will continue to follow.
Vancomycin Follow UP
- -
Patient Age: 84
Patient Sex: Female
Vancomycin Day #: 3
Indication: Bacteremia
Requesting Provider: Anish Monique
Height / Weight:
Height 4 ft 11 in
Actual Weight 47.9 kg
Pertinent Past Medical History: BMI <20; NALINI on CKD
- Vital Signs / Lab Results
Temp Pulse Resp BP Pulse Ox
97.3 F 57 9 115/51 99
04/20/25 07:09 04/20/25 09:55 04/20/25 09:55 04/20/25 07:55 04/20/25 10:13
Lab Results - Hematology
04/17/25 04/18/25 04/19/25
19:38 04:15 03:22
WBC 7.7 6.2 7.6
Band Neutrophils 1
04/19/25 04/20/25
13:47 03:17
WBC 7.5 7.7
Band Neutrophils
Lab Results - Chemistry
04/17/25 04/17/25 04/17/25
19:38 23:46 23:52
BUN 70 H 62 H Cancelled
Creatinine 4.7 H* 3.7 H Cancelled
Estimated Creat Clear 7 Cancelled
Albumin 4.2
04/18/25 04/18/25 04/18/25
04:15 04:15 04:15
BUN Cancelled 59 H
Creatinine Cancelled 3.3 H
Estimated Creat Clear Cancelled
Albumin
04/18/25 04/18/25 04/18/25
04:15 11:06 11:07
BUN 56 H Cancelled
Creatinine 3.0 H Cancelled
Estimated Creat Clear 8 9 Cancelled
Albumin 2.6 L D
04/18/25 04/18/25 04/19/25
15:01 18:50 03:22
BUN 55 H 50 H 19 H
Creatinine 2.8 H 2.7 H 1.2 H
Estimated Creat Clear 10 10 23
Albumin 3.0 L
04/19/25 04/19/25 04/19/25
13:46 15:45 20:11
BUN 6 L Cancelled 8
Creatinine 0.5 L Cancelled 0.7
Estimated Creat Clear 48 Cancelled 42
Albumin 3.0 L
04/19/25 04/20/25
21:00 03:17
BUN Cancelled 9
Creatinine Cancelled 0.8
Estimated Creat Clear Cancelled 36
Albumin 2.5 L
04/17/25 04/18/25 04/18/25
21:49 04:15 08:43
Lactic Acid 14.6 H* 15.9 H* 15.2 H*
04/18/25 04/18/25 04/19/25
15:01 22:48 03:22
Lactic Acid 20.4 H* 10.0 H* 12.7 H*
04/19/25 04/19/25 04/19/25
13:47 20:11 21:00
Lactic Acid 5.4 H* 6.3 H* Cancelled
04/20/25
03:17
Lactic Acid 5.3 H*
Lab Results - Urine
04/17/25
20:21
Urine Nitrite (Reflex) Negative
Leukocyte Esterase Rfl 3+ A
Ur Squamous Epith Cells
Microbiology Results
04/19/25 16:32 Gram Stain - Preliminary
Endotracheal
04/17/25 20:21 Urine Culture - Preliminary
Urine Gram negative bacilli
04/19/25 16:31 Legionella Urinary Antigen - Final
Urine Negative for Legionella pneumophila Serogroup 1 antigen.
A negative result does not rule out the possiblity of
Legionella infection due to other serogroups or species of
Legionella. Clinical correlation is recommended.
Streptococcus pneumoniae Antigen (M - Final
Negative for Streptococcus pneumoniae antigen.
A negative result does not exclude infection with
Streptococcus pneumoniae. Clinical correlation is
recommended.
04/17/25 20:39 Blood Culture - Preliminary
Blood/Venous No Growth in 48 hours- Final report to follow
04/17/25 20:39 Blood Culture - Preliminary
Blood/Venous No Growth in 48 hours- Final report to follow
Therapeutic Drug Monitoring
Random Vancomycin 11.7 ug/ml 04/20/25 03:17
--- NOTE | 2025-04-20 10:28 | PTCARENOTE ---
precedex weaned to off, on cpap/ps wean for brief time, apneic. placed back on AC by RT. echo completed. levophed titration per work list
[2025-04-20 11:20] VITALS: BP_SYST 133
--- NOTE | 2025-04-20 11:28 | W.PN.INTV ---
Today's Communication / Plan
Recommendations
Recommendations are not final until attending attestation. Ms. Santoro is 84 yo F who is admitted to the ICU for further management.
# Acute hypoxic respiratory failure requiring mechanical ventilation
- Intubated 04/18/2025 in ER
- Continue with mechanical ventilation
- Head of bed angle at 30-45 degrees
# Hypotension
- Continue norepinephrine with MAP goal of 65 mmHg
# Anion-gap metabolic lactic acidosis
- Metformin use at home
- Anion gap is now closed (= 9).
- Lactate improving, latest is 5.0
- Nephrology recc: trend lactate, and if it rises, may need to consider additional hemodialysis treatment.
# Electrolyte abnormalities
- Hypocalcemia: latest 8.0
- Phosphorus now within normal limits
- Transaminitis: may be attributed to hypotension, trend LFTs
- Hypomagnesemia: resolved
- Trend CMP
# UTI
- Urine culture positive for gram negative bacilli but negative for strep pneumo anigen, and legionella pneumophila serogroup 1 antigen.
- check MRSA swab
- CXR with concern for possible RLL opacification
- Continue piperacillin/Tazobactam and vancomycin
- f/u endoctracheal culture, blood culture.
# Subclinical hypothyroidism
- TSH of 15, but free Tr 1.3 within normal limits
- Continue levothyroxine IV
# Anemia
- Hgb of 8.0, at initial presentation was 10.6 g/dL
- May in part be due to dilution
- Trend CBC, with goal of >7 g/dL
# DVT ppx
- Heparin 5000 q12h
# GI
- continue pantoprazole
- Dobhoff tube for PO access
# Disposition
- Pending medical improvement
- She is Tagalog speaking
Assessment
-
Ms. Santoro is 84 yo F who presented with unresponsiveness, hypotension (BP in 80s/50s), and hypoglycemia to 35. IM glucagon was administered. In the ER, she was given dextrose (BG improved to 147) but remained unresponsive and required intubation.
Initial labs were notable for K+ to 5.5 (calcium chloride and bicarbonate given), lactic acid of 14.6 (given bicarbonate), and creatinine of 4.7. She was admitted to the ICU for further management.
# Acute hypoxic respiratory failure requiring mechanical ventilation
- Intubated 04/18/2025 in ER
- Continue with mechanical ventilation
- Head of bed angle at 30-45 degrees
# Hypotension
- Continue norepinephrine with MAP goal of 65 mmHg
# Anion-gap metabolic lactic acidosis
- Metformin use at home
- Anion gap is now closed (= 9).
- Lactate improving, latest is 5.0
- Nephrology recc: trend lactate, and if it rises, may need to consider an additional hemodialysis treatment.
# Electrolyte abnormalities
- Hypocalcemia: latest 8.0
- Phosphorus now within normal limits
- Transaminitis: may be attributed to hypotension, trend LFTs
- Hypomagnesemia: resolved
- Trend CMP
# UTI
- Urine culture positive for gram negative bacilli but negative for strep pneumo anigen, and legionella pneumophila serogroup 1 antigen.
- check MRSA swab
- CXR with concern for possible RLL opacification
- Continue piperacillin/Tazobactam and vancomycin
- f/u endoctracheal culture, blood culture.
# Subclinical hypothyroidism
- TSH of 15, but free Tr 1.3 within normal limits
- Continue levothyroxine IV
# Anemia
- Hgb of 8.0, at initial presentation was 10.6 g/dL
- May in part be due to dilution
- Trend CBC, with goal of >7 g/dL
# DVT ppx
- Heparin 5000 q12h
# GI
- continue pantoprazole
- Dobhoff tube for PO access
# Acute kidney injury -- resolved
- Creatinine latest is 0.8
# Disposition
- Pending medical improvement
- She is tagalog speaking, touch base with granddaughter
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
Code status: Full code
Data:
CT Head 04/17/2025: No acute intracranial abnormality noted. No acute intracranial hemorrhage. 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
CXR 04/19/2025: Haziness of each hemidiaphragm, suggestive of bibasilar subsegmental atelectasis. Otherwise clear lungs; Tubes and lines remain in satisfactory position.
Subjective Dataa
Subjective Data
Date of Service:
Date of Service: April 20, 2025
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
Subjective:
Ms. Santoro is 84 yo F who presented with unresponsiveness, hypotension (BP in 80s/50s), and hypoglycemia to 35. IM glucagon was administered. In the ER, she was given dextrose (BG improved to 147) but remained unresponsive and required intubation.
Initial labs were notable for K+ to 5.5 (calcium chloride and bicarbonate given), lactic acid of 14.6 (given bicarbonate).
Today, Ms. Santoro continues on ventilator. Occasional apnea episodes while on ventilator. ROS was not able to be performed because she is intubated.
Review of Systems
General: Other (Unable to perform ROS)
Objective Data
Data Reviewed
Vital Signs / I&O / Oxygen:
Vital Signs
Temp Pulse Resp BP Pulse Ox
97.8 F 78 13 115/51 98
04/20/25 11:24 04/20/25 11:00 04/20/25 11:00 04/20/25 07:55 04/20/25 11:00
Intake and Output
04/19/25 04/20/25 04/21/25
06:59 06:59 06:59
Intake Total 5308.5 / 5749.3 2867.3 / 2936.5 699.0 / 699.0
Output Total 1795 / 1875 1405 / 1405 119 / 119
Balance 3513.5 / 3874.3 1462.3 / 1531.5 580.0 / 580.0
SaO2 [CPAP/PSV] 100
SaO2 [A/C] 99
SaO2 98
Physical Exam
General: Other (intubated and sedated, rush in place)
HEENT: Normocephalic
Cardiovascular: Regular Rhythm
Respiratory: ET Tube (ET tube in place)
GI: Soft
Neurology: Other (Minimaly responsive to voice but sleeping. )
Skin: Warm and Good Color
Labs/Micro/Reports
Lab Data
04/20/25 03:17
04/20/25 03:17
Laboratory Results
04/19/25 04/19/25 04/20/25
20:11 21:00 03:17
PT 21.8 H 21.4 H
INR 1.88 1.83
APTT 65.9 H
pH 7.45 Cancelled 7.48 H
pCO2 37 H Cancelled 32
pO2 141 H Cancelled 96
HCO3 25.7 Cancelled 23.8
O2 Delivery Level Cancelled
Microbiology
04/17/25 20:39 Blood/Venous Blood Culture - Preliminary
No Growth in 48 hours- Final report to follow
04/19/25 16:32 Endotracheal Gram Stain - Preliminary
04/17/25 20:21 Urine Urine Culture - Preliminary
Gram negative bacilli
04/19/25 16:31 Urine Legionella Urinary Antigen - Final
Negative for Legionella pneumophila Serogroup 1 antigen.
A negative result does not rule out the possiblity of
Legionella infection due to other serogroups or species of
Legionella. Clinical correlation is recommended.
04/19/25 16:31 Urine Streptococcus pneumoniae Antigen (M - Final
Negative for Streptococcus pneumoniae antigen.
A negative result does not exclude infection with
Streptococcus pneumoniae. Clinical correlation is
recommended.
04/17/25 20:39 Blood/Venous Blood Culture - Preliminary
No Growth in 48 hours- Final report to follow
Care Review
-
Total Time Spent with Patient (in minutes): 20
[2025-04-20 11:34] VITALS: BP_SYST 158
[2025-04-20] MEDS: VANCOCIN HCL 500 MG 100 IV (11:35)
[2025-04-20] MEDS: NOVOLOG FLEXPEN-MODERATE RESISTANCE 7 UNITS SC (11:39)
[2025-04-20 11:41] LABS: Glucose - Point of Care 301 mg/dl (70-99)
--- NOTE | 2025-04-20 12:00 | PTCARENOTE ---
patient reassessed. on cpap/ps. remains off Precedex. does not follow commands. 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 updated with blood sugar trends. orders received. d/w pharmacist. patient grand daughter updated on phone. labs sent
[2025-04-20] MEDS: NOVOLOG FLEXPEN 4 UNITS SC ×2 (12:26→17:32)
--- NOTE | 2025-04-20 12:31 | PTCARENOTE ---
family at bedside. updated. TT to government gauger re:repeat lactic. patient with periods apnea in spite of family presence and stimulation. placed back on AC by RT
[2025-04-20] MEDS: LANTUS 0.12 UNITS SC (12:39)
--- NOTE | 2025-04-20 12:50 | W.PN.UPDATE ---
Update Note
Progress Note Update
Reevaluated patient multiple times throughout the day at the bedside
Intermittently tolerating spontaneous breathing trial once ventilator adjustments were made
Family arrived and patient was intermittently agitated, high respiratory rate and then occasionally apneic
Dr. Baig updated couple family members including POA on current clinical situation
Continue to try spontaneous breathing trials daily
Patient anemic and blood transfusion consent obtained
Updated critical care nursing and reviewed with critical care respiratory therapy
Total critical care time spent today 65 minutes
--- NOTE | 2025-04-20 13:29 | W.PN.HOSP.TC ---
Today's Communication/Plan
-
Follow-up on sputum sample
Wean pressors as tolerated
Monitor POC
Monitor CBC and platelets
Monitor for luminal bleeding
Assessment / Plan
Assessment / Plan
Gen-intubated, sedated
HEENT-NC, AT, anicteric, clear oral mm
Neck-supple
CV-reg, no M, +S1/S2
Lungs-clear B/L
Abd-soft, NT, ND
Ext-no edema
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
Skin-warm and dry
Neuro-sedated
#Acute metabolic encephalopathy -most likely multifactorial etiology including hypoglycemia, hypotension, severe metabolic acidosis, NALINI, etc.
CT head on admission shows no acute abnormality. No hemorrhage. 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 Baseline cognition unknown.
Remains encephalopathi and agitated
Remains on Precedex drip
#Acute hypoxic respiratory failure -intubated for airway protection given obtundation on presentation.
Panel Saw Operator consulted.
Ongoing spontaneous breathing trial
Continue ICU monitoring.
#Shock -septic versus cardiogenic versus hypovolemic versus other.
Currently on Levophed and vasopressin. Wean down as able. Weight appears to be up at least 8 kg since admission.
Did receive IV albumin as ordered by nephrology.
Blood cultures negative so far, urine culture greater than 100,000 gram-negative bacilli.
Urinalysis does show pyuria.
Continue IV Zosyn, Vanco for now. Follow-up on the sputum sample. If negative then discontinue vancomycin
MRSA swab pending
#NALINI -likely due to shock, hypotension, ATN, hypovolemia, etc.
Status post hemodialysis. No plan for HD today
Nephrology following
#Acute ischemic hepatitis -elevated transaminases, likely due to the shock.
Bilirubin and alkaline phosphatase normal.
#High AG metabolic acidosis -presentation with shock, lactic acidosis, NALINI.
Unclear if patient with type B lactic acidosis. Remains persistently elevated
#Hypothermia -resolved.
TSH 31, free T4 normal at 1.3. 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 Recommend repeat thyroid labs as an outpatient.
Empirically started on IV levothyroxine by signs and displays salesperson.
Random cortisol more than adequate, 46.2.
Dr. Oconnell discussed with stablehand recommended IV 25 mcg levothyroxine daily. Check TSH once a week if she recovers is able to take oral meds recommend 50 mcg p.o. daily
#Acute anemia
presentation with hemoglobin 10.6,
Blood consent obtained by ICU.
Monitor for any bleeding.
#Acute thrombocytopenia
Possibly due to critical illness, shock, etc. Unlikely to be HIT. Doubt TTP as her platelet count on presentation was normal.
Dr. Oconnell discussed with hematology on-call, Dr. Salamanca. No evidence of hemolysis. Bilirubin has been normal so far. LDH midly elevated.
Platelet at 96k. Low probability with 4T score. Will check HIT panel. Hold heparin. Can hold off on starting anticoagulation
#Atrial fibrillation, unknown type
hold amiodarone and Eliquis.
Admission EKG with sinus rhythm and first-degree AV block.
Nonspecific intraventricular conduction block.
Hypernatremia -resolved.
Hyperkalemia -resolved. Now she is hypokalemic. Should correct on hemodialysis.
Hypomagnesemia -getting repleted.
Hyperphosphatemia -resolved. Now hypophosphatemic. Received IV potassium phosphate this morning.
DM2 with hypoglycemia/hyperglycemia -presentation with glucose 45, reportedly glucose in the 20s at home. Metformin listed as the only diabetes medication.
Required insulin IV infusion on 04/18, glucoses subsequently improved and did have hypoglycemia. Currently off IV insulin.
Last Accu-Chek 301 started on 12 days of Lantus
Hemoglobin A1c 5.7%.
Full code
DVT ppx-hep sc
Total Critical Care Time_ 40 minutes. I was immediately available to the patient and staff. I personally examined, reviewed labs, diagnostic images/reports, interpretations, treatment plans, discussed patient care with other providers and family
or caregivers (if patient is unable to make decisions), entered orders as appropriate and documented the medical record.
Anticipated Discharge: > 48 hours
Subjective/Interval History
-
Date of Service: April 20, 2025
Remains intubated and sedated
Objective Data
-
Labs:
Laboratory Results
04/20/25
03:17
WBC 7.7
Hgb 8.0 L
Hct 22.3 L
Plt Count 96 L
PT 21.4 H
INR 1.83
HCO3 23.8
Sodium 136
Potassium 3.8
Chloride 103
Carbon Dioxide 24
BUN 9
Creatinine 0.8
Glucose 137 H
Calcium 8.0 L
Total Bilirubin 1.0
AST 151 H
ALT 110 H
Alkaline Phosphatase 106
Vital Signs:
Vital Signs
Temp Pulse Resp BP Pulse Ox
97.8 F 80 7 115/51 99
04/20/25 11:24 04/20/25 13:15 04/20/25 13:15 04/20/25 07:55 04/20/25 13:15
I&O
04/19/25 04/20/25 04/21/25
06:59 06:59 06:59
Intake Total 5308.5 / 5749.3 2867.3 / 2936.5 1009.5 / 1009.5
Output Total 1795 / 1875 1405 / 1405 195 / 195
Balance 3513.5 / 3874.3 1462.3 / 1531.5 814.5 / 814.5
--- NOTE | 2025-04-20 16:37 | CM ---
Intubated, IV/Precedex, Fentanyl and AB. Discharge POC: TBD based on medical progression.
[2025-04-20] MEDS: LEVOTHROID 25 MCG IV (17:00)
--- NOTE | 2025-04-20 17:28 | PTCARENOTE ---
patient reassessed, no changes. levophed per work list. remains of precedex. hearing aides in.
[2025-04-20] MEDS: NOVOLOG FLEXPEN-LOW RESISTANCE 2 UNITS SC (17:32)
[2025-04-20 17:42] LABS: Glucose - Point of Care 237 mg/dl (70-99)
[2025-04-20 18:40] LABS: Hepatitis B Surface Antigen Negative (Negative)
[2025-04-20 18:58] LABS: Hepatitis C Antibody Negative (Negative)
[2025-04-20 19:45] VITALS: BP 114/70
--- NOTE | 2025-04-20 20:00 | PTCARENOTE ---
Rec'd pt with wrists restrained for pt safety, pt opens eyes to stimulation, does not speak kinyarwanda, moving upper extremities spont,, occas movement of lower extremities, TAZ at 2mm, sluggish, SR w/ 1' AV block, R rad maritza w/ good wave form,
flushes well, accurate to cuff- goal MAP > 65, double conc levo at 9 maryann- see flow sheet for titrations, weak distal pulses, + anasarca,# 7.5 oral ett- repos on R side at 20cm, ac 10,TV 300, 5 peep, 30%, sat 100, lungs decr, + bowel sounds, no bm,
abd soft, no vomiting, R nares dobhoff- osmolyte 1.2 at 35ml/hr &15ml/hr h20 flush, thermister rush draining yellow urine
[2025-04-21] VITALS (20 sets, daily range): BP systolic 102–129; BP diastolic 50–87; BMI 22.4
--- NOTE | 2025-04-21 | PTCARENOTE ---
sys reviewed, restless at times,fent 50mic IV given before care, CHG bath done, linens changed
[2025-04-21 00:14] LABS: Glucose - Point of Care 119 mg/dl (70-99)
[2025-04-21] MEDS: SUBLIMAZE 50 MCG IV ×2 (00:21→03:28)
[2025-04-21] MEDS: ZOSYN 50 IV ×2 (00:22→08:10)
[2025-04-21] MEDS: NOVOLOG FLEXPEN 4 UNITS SC ×2 (00:25→06:06)
[2025-04-21] MEDS: NOVOLOG FLEXPEN-LOW RESISTANCE SC ×4 (00:26→17:56)
[2025-04-21] MEDS: NSS 1000 IV ×2 (01:02→14:12)
[2025-04-21] MEDS: LEVOPHED 258 MG IV (01:23)
[2025-04-21 03:21] LABS: B.E. 0.9 mmol/L; HCO3 25.1 mmol/L (21-28); O2 Saturation % 100.0 % (94-98); PCO2 37 mmHg (32-35); PO2 130 mmHg (83-108)
[2025-04-21] MEDS: PRECEDEX 100 IV (03:39)
[2025-04-21 03:50] LABS: Hematocrit 20.7 % (37.0-47.0); Hemoglobin 7.4 g/dL (12.0-16.0); Mean Corp Hgb Conc. 35.7 g/dL (33.0-37.0); Mean Corpuscular Volume 83.5 fL (81.0-99.0); Platelet Count 63 10^3/uL (130-400); Red Cell Dist. Width 16.7 % (11.5-14.5)
[2025-04-21 03:54] LABS: ALT (SGPT) 91 U/L (0-35); AST (SGOT) 107 U/L (14-36); Albumin 2.1 g/dl (3.5-5.0); Alkaline Phosphatase 217 U/L (38-126); Blood Urea Nitrogen 14 mg/dl (7-17); Calcium 7.1 mg/dl (8.4-10.2); Carbon Dioxide 25 mmol/L (22-30); Chloride 106 mmol/L (98-107); Estimated Creatinine Clearance 29 ml/min; Glucose 90 mg/dl (70-99); Potassium 3.4 mmol/L (3.5-5.1); Sodium 135 mmol/L (135-145); Total Protein 3.9 g/dl (6.3-8.2); eGFR 55.90
--- NOTE | 2025-04-21 04:08 | PTCARENOTE ---
sys reviewed, ett repos on left side at 20cm, fent 50 maryann given before tube repos
[2025-04-21] MEDS: KCL ELIXIR 20 MEQ TUBE (04:41)
--- NOTE | 2025-04-21 04:42 | PTCARENOTE ---
20 meq kclvia tube given per order
[2025-04-21 06:12] LABS: Glucose - Point of Care 81 mg/dl (70-99)
--- NOTE | 2025-04-21 07:37 | W.PN.INTV ---
Today's Communication / Plan
Recommendations
Spontaneous breathing trial-Hope to extubate
Antibiotics
Wean pressors
Nutrition
Hemodialysis and intravenous fluid management per nephrology
Assessment
-
M 84-year-old female who was found unresponsive. On the morning prior to arrival, she was hypoglycemic with blood sugar 51. Upon EMS arrival, blood sugars were 35. IM glucagon given. Patient was hypotensive for EMS with BP in the 80s/50s.
Patient was brought to the ER, and was given additional dextrose with glucose improving to 147, however she remained unresponsive/obtunded and was intubated in the ER. She was found to be hyperkalemic and treated with bicarbonate + calcium
chloride. She was found to be hypothermic (90 �F) via temperature sensing Rush. Head CT performed showing no acute abnormalities. She was also found to be acidotic with NALINI and nephrology contacted and 2 A of bicarb were given. There were no
recommendations for emergent dialysis. Patient was admitted to the ICU and wheel lacer and truer services consulted for additional management/recommendations.
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
Impression:
#Acute hypoxic respiratory failure requiring mechanical ventilation (intubated 04/18/2025 in ER)
#Severe metabolic acidosis with increased anion gap - anion gap now resolved
#Lactic acidosis in the setting of recent metformin use and NALINI on CKD - lactate improving
#NALINI superimposed on CKD (unknown baseline creatinine) - now on iHD
#Anemia
#Elevated INR in the setting of Eliquis use and reduce PO intake prior to arrival
#Hyperglycemia (HbA1c: 5.7 on 04/18/2025) - briefly required insulin drip (now off as of 04/18/2025)
#Hypocalcemia
#Hypomagnesemia
#Transaminitis
#Subclinical hypothyroidism with significantly elevated TSH at 31.5 (free T4: 1.3)
#UTI
#A-fib on Eliquis
#Moderate mitral regurgitation
Plan:
- Patient was found minimally responsive morning COSTUMING SUPERVISOR and was 'breathing funny' - was found to have significant lactic acidosis with NALINI and was intubated for airway protection
- The family says that for the past 3 days she has been eating less; was last known normal on the morning prior to arrival.
Family denies that the patient uses any drugs or drinks alcohol. She does have a history of CKD and normally makes urine
- Continue with mechanical ventilation with daily SAT/SBT if clinically appropriate
- Maintain plateau pressure <30 and titrate FiO2 + PEEP to keep SpO2 >90-94%
- Continue aspiration precautions; keep HOB >30-45�
- prn nebulized bronchodilators - not currently bronchospastic
- Oropharyngeal + deep ETT suctioning with subglottic as needed
- Daily CXR + blood gas
- Daily vent adjustments as needed based on blood gas and SaO2
- Low level of sedation with goal RASS as 0 to -2
-SVT 04/20/2025-over 40 sec apneas, ABG noted with some iatrogenic respiratory alkalosis-adjust ventilator and retry SBT-reviewed with SENIOR STAFF CONSULTANT
-Retry SBT 04/21/2025
- Admission CT head showed no acute intracranial abnormality
- Repeat CT head if she continues to be encephalopathic despite improving metabolic disturbances
- Avoid sedation if possible; currently on low-dose Precedex
- believe that the reason she initially had no cranial nerve responses was due to the RSI medications used in the ER in the setting of severe NALINI with prolonged clearance
- Her TSH is significantly elevated at 31.5 although her free T4 is WNL at 1.3. Dr. Velasco started her on IV levothyroxine on 04/18, and continue trending her TSH to assess for continued improvement; hospitalist discussed her case with
endocrinology.
Recommend to repeat TFTs and consider lowering dose of IV levothyroxine based on repeat TSH if improving; if repeat TSH remains high then continue IV levothyroxine
- Maintain MAP >65
- Continue with vasopressors and wean as tolerated
- Currently on Levophed
- Echocardiogram 04/20/2025-EF 55-60%, mild to moderate mitral regurgitation
- Random cortisol level is 46.2, hence no need for stress dose steroids
- Hold patient's home antihypertensives; will start metoprolol at a low dose as soon as possible to avoid beta-olesya withdrawal
- Nephrology on board; continue HD given her lactic acidosis was continuing to rise on 04/18 in the setting of metformin use COSTUMING SUPERVISOR- correspondence reviewed
- Continue to trend serum bicarbonate level; stop bicarb gtt now that she is alkalemic
- Continue to trend lactate until <2mmol/L
- Replete electrolytes with K>4, Mg>2
-Patient was initially given cefepime, and is now on Vanc/Zosyn
- Check MRSA swab
- Urine culture positive, growing GNR: Follow-up species + sensitivities
- Check sputum culture from ETT if a decent sample can be obtained, especially as the right lower lobe now has opacification (?aspiration)- Pending 04/19/2025
- Follow-up blood cultures drawn on 04/17 (shows NGTD)
- Maintain euglycemia with goal BG 140-180
- Required insulin gtt on 04/18, but now off and BG much more improved
- Transition off insulin gtt back to ISS q4hr and continue to monitor for recurrence of hyperglycema;
- Trend H/H and transfuse if needed to keep Hb>7g/dL; keep plt>20k, unless there is concern for bleeding then keep plt>50k
- Early nutrition when hemodynamics improve
- Insert dobhoff tube for PO access
- DVT ppx: HSQ; continue to trend INR given it was >2 on admission
-GI prophylaxis-on pantoprazole
Code status: Full code
Continue ICU level of care for this critically ill patient.
Dr. Baig reviewed with POA and family members at the bedside 04/20/2025-reviewed current clinical condition, prognosis, and potential need for blood-consent obtained
Critical care statement: A total of 40 minutes of critical care time was provided for this patient today. This includes management of unstable vital signs, evaluation of the patient at bedside, reviewing the patient's pertinent medical records
including radiographs, microbiology, laboratory evaluations, and discussion with primary team, consultants, pharmacy, nutrition, physical therapy, case management, charge nurse, critical care nursing, and respiratory therapy.
Data:
CT Head 04/17/2025: No acute intracranial abnormality noted. No acute intracranial hemorrhage. 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
CXR 04/19/2025: Haziness of each hemidiaphragm, suggestive of bibasilar subsegmental atelectasis. Otherwise clear lungs; Tubes and lines remain in satisfactory position.
Subjective Dataa
Subjective Data
Date of Service:
Date of Service: April 21, 2025
Chief Complaint: Metal Smelter Follow Up, Pulmonary Follow Up and Vent Management Follow Up
Subjective:
Intermittently agitated, no increased secretions, still on some pressors, review of systems unobtainable as patient is sedated on the ventilator
Review of Systems
General: Other (Per HPI)
Objective Data
Data Reviewed
Vital Signs / I&O / Oxygen:
Vital Signs
Temp Pulse Resp BP Pulse Ox
97.7 F 59 13 114/70 100
04/21/25 07:21 04/21/25 06:15 04/21/25 06:15 04/20/25 19:45 04/21/25 06:15
Intake and Output
04/20/25 04/21/25 04/22/25
06:59 06:59 06:59
Intake Total 2867.3 / 2936.5 3368.5 / 3368.5
Output Total 1405 / 1405 690 / 690
Balance 1462.3 / 1531.5 2678.5 / 2678.5
SaO2 [CPAP/PSV] 98
SaO2 [A/C] 100
SaO2 100
Physical Exam
General: Respiratory Distress (n), Comfortable and Other (intubated and sedated, rush in place)
HEENT: Normocephalic and Anicteric
Cardiovascular: Regular Rhythm
Respiratory: Wheeze (n), Crackles (n), Rhonchi (n), Non-Labored Respirations, Accessory Resp Muscle Use and ET Tube (ET tube in place)
GI: Soft, Non Distended and Non Tender
Neurology: Other (Minimaly responsive to voice but sleeping. )
Skin: Warm, Good Color, Cyanosis (n) and Jaundice (n)
Labs/Micro/Reports
Lab Data
04/21/25 03:13
04/21/25 03:13
Laboratory Results
04/21/25
03:13
pH 7.44
pCO2 37 H
pO2 130 H
HCO3 25.1
O2 Delivery Level
Microbiology
04/17/25 20:39 Blood/Venous Blood Culture - Preliminary
No Growth in 72 hours- Final report to follow
04/17/25 20:39 Blood/Venous Blood Culture - Preliminary
No Growth in 72 hours- Final report to follow
04/19/25 16:32 Endotracheal Gram Stain - Preliminary
04/17/25 20:21 Urine Urine Culture - Preliminary
Gram negative bacilli
04/19/25 16:31 Urine Legionella Urinary Antigen - Final
Negative for Legionella pneumophila Serogroup 1 antigen.
A negative result does not rule out the possiblity of
Legionella infection due to other serogroups or species of
Legionella. Clinical correlation is recommended.
04/19/25 16:31 Urine Streptococcus pneumoniae Antigen (M - Final
Negative for Streptococcus pneumoniae antigen.
A negative result does not exclude infection with
Streptococcus pneumoniae. Clinical correlation is
recommended.
--- NOTE | 2025-04-21 07:45 | PTCARENOTE ---
Received pt @ change of shift intubated/sedated/restrained. Pt. opens eyes spont; tracks but does not follow commands w stonecutter assistant line. Moves UE; attempts to pull @ lines. Pupils 2mm/sluggish. SR w 1st degree AVB on monitor. SpO2 99% on vent
settings AC10/300/.30/+5. Suctioned for scant amts of yellow secretions. Auscultated dim breath sounds posteriorly. Hypoactive BS, abd soft/round. R nare dobhoff w osmolite 1.2 @ 35mL/hr and 15mL/hr H20 flush. Thermistor rush in place draining
yellow urine. R rad A-line transduced, calibrated, and monitored; all ports patent and secured. R IJ pigtail off HD cath in place w IVF, dex/levo gtt- see flow sheet. Pt. repositioned per protocol. Safe environment maintained.
--- NOTE | 2025-04-21 07:55 | W.PN.HOSP.TC ---
Today's Communication/Plan
-
Change antibiotics to ertapenem
Wean pressors as tolerated
Ongoing SBT
Trend CBC closely
Transfuse for hemoglobin less than 7 or platelets less than 20 or with active bleeding
Hold Eliquis
Remains critically ill
Assessment / Plan
Assessment / Plan
Gen-intubated, sedated
HEENT-NC, AT, anicteric, clear oral mm
Neck-supple
CV-reg, no M, +S1/S2
Lungs-clear B/L, ETT noted
Abd-soft, NT, ND
Ext-no edema
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
Skin-warm and dry
Neuro-sedated
#Acute metabolic encephalopathy -most likely multifactorial etiology including hypoglycemia, hypotension, severe metabolic acidosis, NALINI, etc.
CT head on admission shows no acute abnormality. No hemorrhage. 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 Baseline cognition unknown.
Remains on Precedex drip
Monitor mentation post extubation
#Acute hypoxic respiratory failure -intubated for airway protection given obtundation on presentation.
Client Sales And Service Officer consulted.
Ongoing spontaneous breathing trial
Continue ICU monitoring.
#Shock likely septic ?ESBL UTI
Currently on Levophed and vasopressin. Wean down as able. Weight appears to be up at least 8 kg since admission.
Did receive IV albumin as ordered by nephrology.
Blood cultures negative so far, urine culture w/ESBL
Urinalysis does show pyuria.
DC vancomycin. Blood cultures remains negative. DC zosyn and switched to Ertapenem
#NALINI -likely due to shock, hypotension, ATN, hypovolemia, etc.
Status post hemodialysis. No plan for HD today
Nephrology following
#Acute ischemic hepatitis -elevated transaminases, likely due to the shock.
Bilirubin and alkaline phosphatase normal.
#High AG metabolic acidosis -presentation with shock, lactic acidosis, NALINI.
Unclear if patient with type B lactic acidosis. Remains persistently elevated
#Hypothermia -resolved.
TSH 31, free T4 normal at 1.3. 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 Recommend repeat thyroid labs as an outpatient.
Empirically started on IV levothyroxine by technology consultant.
Random cortisol more than adequate, 46.2.
Dr. Oconnell discussed with rotary kiln operator recommended IV 25 mcg levothyroxine daily. Check TSH once a week if she recovers is able to take oral meds recommend 50 mcg p.o. daily
#Acute anemia
presentation with hemoglobin 10.6,
Blood consent obtained by ICU.
Monitor for any bleeding.
#Acute thrombocytopenia
Possibly due to critical illness, shock, etc. Unlikely to be HIT. Doubt TTP as her platelet count on presentation was normal.
Dr. Oconnell discussed with hematology on-call, Dr. Salamanca. No evidence of hemolysis. Bilirubin has been normal so far. LDH midly elevated.
Platelet at 63k. Low probability with 4T score. Will check HIT panel. Hold heparin. Can hold off on starting anticoagulation
If persistent decreasing platelets need to consider hematology input
#Atrial fibrillation, unknown type
restarted on amiodarone
Admission EKG with sinus rhythm and first-degree AV block.
Nonspecific intraventricular conduction block.
ECHO 04/20/25- LV ejection fraction is 55-60%. No regional wall motion abnormalities are seen. Normal right ventricular size and function. Mild to moderate mitral regurgitation. Aortic sclerosis without stenosis. Mild aortic regurgitation.
Hypernatremia -resolved.
Hyperkalemia -resolved. Now she is hypokalemic. Should correct on hemodialysis.
Hypomagnesemia -getting repleted.
Hyperphosphatemia -resolved. Now hypophosphatemic. Received IV potassium phosphate this morning.
DM2 with hypoglycemia/hyperglycemia -presentation with glucose 45, reportedly glucose in the 20s at home. Metformin listed as the only diabetes medication.
Required insulin IV infusion on 04/18, glucoses subsequently improved and did have hypoglycemia. Currently off IV insulin.
Last Accu-Chek 301 started on 12 days of Lantus
Hemoglobin A1c 5.7%.
Full code
DVT ppx-SCDs
Total Critical Care Time_ 45 minutes. I was immediately available to the patient and staff. I personally examined, reviewed labs, diagnostic images/reports, interpretations, treatment plans, discussed patient care with other providers and family
or caregivers (if patient is unable to make decisions), entered orders as appropriate and documented the medical record.
Anticipated Discharge: > 48 hours
Subjective/Interval History
-
Date of Service: April 21, 2025
remains intubated and sedated
Objective Data
-
Labs:
Laboratory Results
04/21/25
03:13
WBC 6.4
Hgb 7.4 L
Hct 20.7 L*
Plt Count 63 L D
HCO3 25.1
Sodium 135
Potassium 3.4 L
Chloride 106
Carbon Dioxide 25
BUN 14
Creatinine 1.0
Glucose 90
Calcium 7.1 L
Total Bilirubin 0.8
AST 107 H
ALT 91 H
Alkaline Phosphatase 217 H
Vital Signs:
Vital Signs
Temp Pulse Resp BP Pulse Ox
97.7 F 59 13 114/70 100
04/21/25 07:21 04/21/25 06:15 04/21/25 06:15 04/20/25 19:45 04/21/25 06:15
I&O
04/20/25 04/21/25 04/22/25
06:59 06:59 06:59
Intake Total 2867.3 / 2936.5 3368.5 / 3368.5
Output Total 1405 / 1405 690 / 690
Balance 1462.3 / 1531.5 2678.5 / 2678.5
[2025-04-21] MEDS: NSS (PRESERVATIVE FREE) 10 ML IV (08:11)
[2025-04-21] MEDS: PROTONIX IV 40 MG IV (08:11)
[2025-04-21] MEDS: MIRALAX 17 GRAMS TUBE (08:11)
--- NOTE | 2025-04-21 08:32 | PN.DE.MGMTRT ---
Insulin Management
- -
04/21/25: Diabetes Management Consult Follow up
Patient found unresponsive at home brought ED 04/17. PMH: Significant for A-Fib, HTN and T2DM. Pt was noted hypotension for EMS with BP in the 80s/50s and hypoglycemia with blood sugar of 35. Treated with dextrose and glucose improved to 147, however
she remained unresponsive/obtunded and was intubated in the ER. She was noted for severe azotemia and metabolic acidosis and hypoglycemia upon arrival to the ED. Her glucose was reportedly in the 20s earlier at home. Metformin is the only diabetes
medication listed. Hemoglobin A1C 5.7%, Cr 0.8, eGFR > 60.
Glucoses subsequently improved and pt developed hyperglycemia, requiring insulin infusion, critical care glycemic protocol was briefly started on 04/18 for 4 hrs.
Pt remains in ICU, now extubated, unable to interview, no family at bedside.
Currently NPO, on Tube feeds rate 30 cc/hr, glucose improved this AM 90. 12 noon glucose 71.
Will reduce Lantus to 8 units daily @ Noon and reduce NovoLog 2 units Q6hrs, reduce moderate corrective to low.
Discussed with Nurse.
Will cont to follow and adjust insulin dose if necessary.
Diabetes History
- -
Type of Diabetes: 2
Pre-Admission Diabetes Regimen
04/21/25
03:13
Creatinine 1.0
Lab Results
Hemoglobin A1c 5.7 % (4.0-5.6) H 04/18/25 04:15
Insulin Pump Settings
IP Diabetes Regimen
04/20/25 04/20/25 04/21/25
11:29 17:30 00:02
Glucose
POC Glucose 301 H 237 H 119 H
04/21/25 04/21/25
03:13 06:01
Glucose 90
POC Glucose 81
Patient Education
--- NOTE | 2025-04-21 10:00 | PTCARENOTE ---
Urine culture resulted w ESBL- MD team made aware.
[2025-04-21 10:03] LABS: B.E. -0.4 mmol/L; HCO3 24.0 mmol/L (21-28); O2 Saturation % 99.4 % (94-98); PCO2 37 mmHg (32-35); PO2 146 mmHg (83-108)
--- NOTE | 2025-04-21 10:34 | W.PN.NEPH.PH ---
Today's Communication / Plan
-
follow BMP
Assessment/Plan
-
84y F with PMH significant for A-Fib, HTN and DM-II who presents to ED for evaluation of confusion and N/V.
Severe azotemia and metabolic acidosis and hyperglycemic
Impression.
Acute on chronic kidney disease uncertain baseline
Diabetes with hypoglycemia
UTI
Septic shock
A-fib stable
Acute metabolic acidosis/lactic acidosis on metformin.
Plan.
no dialysis this am
follow lactate, if lower tomorrow, can dc HD CVC
wean pressors as allowed
follow BMP
follow UOP
IVF continues
continue TF/FWF, at goal
critical care time 31 minutes
-
-
Date of Service: April 21, 2025
CC / HPI / ROS
-
Chief Complaint:
Septic shock
History of Present Illness:
Presents with altered mental status abnormal labs and septic shock requiring acute hemodialysis
critically ill in ICU on pressors, vent
UOP oliguric
lactic acid improving to 2.3
Review of Systems:
intubated, sedated
Labs
-
Labs:
WBC 6.4 10^3/uL (4.8-10.8) 04/21/25 03:13
RBC 2.48 10^6/uL (4.20-5.40) L 04/21/25 03:13
Hgb 7.4 g/dL (12.0-16.0) L 04/21/25 03:13
Hct 20.7 % (37.0-47.0) L* 04/21/25 03:13
Plt Count 63 10^3/uL (130-400) L D 04/21/25 03:13
Sodium 135 mmol/L (135-145) 04/21/25 03:13
Potassium 3.4 mmol/L (3.5-5.1) L 04/21/25 03:13
Chloride 106 mmol/L (98-107) 04/21/25 03:13
Carbon Dioxide 25 mmol/L (22-30) 04/21/25 03:13
BUN 14 mg/dl (7-17) 04/21/25 03:13
Creatinine 1.0 mg/dL (0.6-1.0) 04/21/25 03:13
eGFR 55.90 04/21/25 03:13
Glucose 90 mg/dl (70-99) 04/21/25 03:13
Calcium 7.1 mg/dl (8.4-10.2) L 04/21/25 03:13
Phosphorus 3.7 mg/dl (2.5-4.5) 04/20/25 03:17
Albumin 2.1 g/dl (3.5-5.0) L 04/21/25 03:13
Physical Exam
-
Vital Signs:
Vital Signs
Temp Pulse Resp BP Pulse Ox
97.7 F 62 12 114/70 100
04/21/25 07:21 04/21/25 07:50 04/21/25 07:50 04/20/25 19:45 04/21/25 09:59
Cardiovascular:: Regular rate and rhythm
Respiratory:: Bilateral: Coarse
Lung Excursion:: Normal
Abdomen:: Nontender and Soft
Bowel Sounds:: Normal
Extremity Edema:: None: Bilateral:
[2025-04-21 11:48] LABS: Glucose - Point of Care 71 mg/dl (70-99)
--- NOTE | 2025-04-21 12:31 | PTCARENOTE ---
CPAP wean initiated @ 0750 by RT. Dex gtt off @ 0800- see flow sheet. Pt. weaned on CPAP settings approx 2H; tolerated wean. ABG drawn and sent to lab; results reviewed by Dr. Baig and further orders received to extubate. Pt. extubated by RT
@ 1045 to simple mask 2L, tolerating. Levo gtt tapered as tolerated- see flow sheet. Pt.'s routine blood sugar check found to be-71. DM LAB TESTER made aware and insulin orders adjusted- see DEC. L lower arm noted to be more red/edematous, Dr. Foreman
made aware and further orders for US; awaiting test.
[2025-04-21] MEDS: LANTUS 0.08 UNITS SC (12:41)
[2025-04-21] MEDS: PACERONE 200 MG TUBE (12:41)
[2025-04-21] MEDS: NOVOLOG FLEXPEN 2 UNITS SC ×2 (12:42→17:54)
[2025-04-21] MEDS: INVANZ 55 MG IV (14:04)
--- NOTE | 2025-04-21 14:31 | PTCARENOTE ---
pt awake not speaking. moving all ext. levo tube feeding ivf running. pt repositioned in bed. rush care done. left upper arm red. u/s done.
--- NOTE | 2025-04-21 14:33 | PTCARENOTE ---
report given to on coming RN @ 4624. No further needs from this RN.
--- NOTE | 2025-04-21 15:12 | CM ---
Spontaneous breathing trial, IV/Ertapenem, IV Precedex and Fentanyl, wean pressors. Discharge POC: TBD. Will need therapy eval and recommendations when able.
--- NOTE | 2025-04-21 15:15 | PN.CDI ---
CDI
- -
CDI:
Physician Documentation Request
Admit Date: 04/17/25 22:41
Dear Doctor Kellen,
Progress notes states 'Acute hypoxic respiratory failure -intubated for airway protection given obtundation on presentation'
In attempt to clarify potentially conflicting documentation, please clarify the reason for intubation:
Airway protection
Acute hypoxic respiratory failure
Other
Use of terms such as suspected, likely, concern for, or probable (associated with a specific diagnosis that is being evaluated, monitored, or treated as if it exists) are acceptable and can be coded in the inpatient setting, when documented at the
time of discharge.
Thank you,
Hina Mccarthy RN, BSN
CDI Specialist
tiger text
Please use your independent medical judgment in providing your response.
--- NOTE | 2025-04-21 15:29 | PN.CDI ---
CDI
- -
CDI:
Physician Documentation Request
Admit Date: 04/17/25 22:41
Dear Doctor Kellen,
H&P states 'acute TME likely secondary to the above -acidosis/shock/etc. '
Progress notes states 'Acute metabolic encephalopathy -most likely multifactorial etiology including hypoglycemia, hypotension, severe metabolic acidosis, NALINI, etc.'
In an attempt to clarify potentially conflicting documentation , please clarify they type of encephalopathy:
Toxic metabolic encephalopathy
Acute metabolic encephalopathy
Other
Use of terms such as suspected, likely, concern for, or probable (associated with a specific diagnosis that is being evaluated, monitored, or treated as if it exists) are acceptable and can be coded in the inpatient setting, when documented at the
time of discharge.
Thank you,
Hina Mccarthy RN, BSN
CDI Specialist
tiger text
Please use your independent medical judgment in providing your response.
[2025-04-21] MEDS: LEVOTHROID 25 MCG IV (17:25)
[2025-04-21 18:07] LABS: Glucose - Point of Care 77 mg/dl (70-99)
--- NOTE | 2025-04-21 20:00 | PTCARENOTE ---
Rec'd pt restless, pulling off gown, ed at 2mm, sluggish, slight movement of legs, does not speak libyan, wrists restrained for pt safety, 1' AV block, R r ad line dc'd due to leaking, bp stable, bilat arms ecchy, R arm oozing serous fluid from
previous iv site, foam dsg applied, IVF dc'd per order, + anasarca, foam removed form sacrum- DTI noted- wound RN consulted, no sting barrier & protective foam applied, wedge used for turning, weak distal pulses, O2 2 liters nc, lungs
coarse, sat 99, + bowel sounds, inc lg amt loose brown stool, rectal trumpet to str drainage bag inserted, R nares dobhoff- osmolyte 1.2 at 35ml/hr & 15ml/hr h20 flush, no vomiting, thermister rush draining yellow urine
[2025-04-21] MEDS: SENNA SYRUP TUBE (21:12)
[2025-04-22] VITALS (28 sets, daily range): BP systolic 104–163; BP diastolic 53–109; BMI 23.5
[2025-04-22 00:10] LABS: Glucose - Point of Care 71 mg/dl (70-99)
--- NOTE | 2025-04-22 00:17 | PTCARENOTE ---
sys reviewed, CHG bath done, linens changed, accu 71- B Sammie, POT FIREMAN notified- to hold 0000 dose of novolog
[2025-04-22] MEDS: NOVOLOG FLEXPEN SC (00:18)
[2025-04-22 03:22] LABS: Hematocrit 19.5 % (37.0-47.0); Hemoglobin 6.5 g/dL (12.0-16.0); Mean Corp Hgb Conc. 33.3 g/dL (33.0-37.0); Mean Corpuscular Volume 85.9 fL (81.0-99.0); Platelet Count 53 10^3/uL (130-400); Red Cell Dist. Width 17.2 % (11.5-14.5)
[2025-04-22 03:36] LABS: ALT (SGPT) 130 U/L (0-35); AST (SGOT) 195 U/L (14-36); Albumin 2.2 g/dl (3.5-5.0); Alkaline Phosphatase 318 U/L (38-126); Blood Urea Nitrogen 17 mg/dl (7-17); Calcium 6.9 mg/dl (8.4-10.2); Carbon Dioxide 25 mmol/L (22-30); Chloride 107 mmol/L (98-107); Estimated Creatinine Clearance 26 ml/min; Glucose 71 mg/dl (70-99); Magnesium 1.8 mg/dl (1.6-2.3); Potassium 3.6 mmol/L (3.5-5.1); Sodium 135 mmol/L (135-145); Total Protein 4.1 g/dl (6.3-8.2); eGFR 49.86
--- NOTE | 2025-04-22 03:40 | PTCARENOTE ---
erica reviewed, Jennifer Cochran Np aware of hgb & Ca results, orders rec'd, Calcium will be given after prbc infused
--- NOTE | 2025-04-22 03:56 | PTCARENOTE ---
prbc hung per order
[2025-04-22 05:35] LABS: Absolute Neutrophils -Man Diff 3.1 10^3/uL (1.4-6.5); Anisocytosis 2+; Normal RBC Morphology No; Platelets Checked Yes; Total Cells Counted 100
[2025-04-22] MEDS: NOVOLOG FLEXPEN-LOW RESISTANCE SC ×4 (05:57→17:38)
[2025-04-22 06:06] LABS: Glucose - Point of Care 83 mg/dl (70-99)
[2025-04-22] MEDS: CALCIUM GLUCONATE 130 MG IV (06:29)
--- NOTE | 2025-04-22 06:29 | PTCARENOTE ---
Prbc hung, 3 gm ca gluconate hung over 1 hr per order
--- NOTE | 2025-04-22 07:37 | W.PN.INTV ---
Today's Communication / Plan
Recommendations
Tolerated extubation
Wean FiO2
Aspiration precautions
Speech therapy evaluation
MRSA positive-1 dose Vanco and infectious disease consultation
Continue antibiotics per infectious disease
Transfer out of ICU-pulmonary will continue to follow briefly
Assessment
-
84-year-old female who was found unresponsive. On the morning prior to arrival, she was hypoglycemic with blood sugar 51. Upon EMS arrival, blood sugars were 35. IM glucagon given. Patient was hypotensive for EMS with BP in the 80s/50s. Patient
was brought to the ER, and was given additional dextrose with glucose improving to 147, however she remained unresponsive/obtunded and was intubated in the ER. She was found to be hyperkalemic and treated with bicarbonate + calcium chloride. She
was found to be hypothermic (90 �F) via temperature sensing Rush. Head CT performed showing no acute abnormalities. She was also found to be acidotic with NALINI and nephrology contacted and 2 A of bicarb were given. There were no recommendations
for emergent dialysis. Patient was admitted to the ICU and workers' compensation mediator services consulted for additional management/recommendations.
Chronic conditions [employer]: A-fib on Eliquis, vitamin D deficiency, hypertension, CKD, DM type II
Impression:
#Acute hypoxic respiratory failure requiring mechanical ventilation (intubated 04/18/2025 in ER)
#Severe metabolic acidosis with increased anion gap - anion gap now resolved
#Lactic acidosis in the setting of recent metformin use and NALINI on CKD - lactate improving
#NALINI superimposed on CKD (unknown baseline creatinine) - now on iHD
#Anemia
#Elevated INR in the setting of Eliquis use and reduce PO intake prior to arrival
#Hyperglycemia (HbA1c: 5.7 on 04/18/2025) - briefly required insulin drip (now off as of 04/18/2025)
#Hypocalcemia
#Hypomagnesemia
#Transaminitis
#Subclinical hypothyroidism with significantly elevated TSH at 31.5 (free T4: 1.3)
#UTI
#A-fib on Eliquis
#Moderate mitral regurgitation
Plan:
- Patient was found minimally responsive morning [employer] and was 'breathing funny' - was found to have significant lactic acidosis with NALINI and was intubated for airway protection
- The family says that for the past 3 days she has been eating less; was last known normal on the morning prior to arrival.
Family denies that the patient uses any drugs or drinks alcohol. She does have a history of CKD and normally makes urine
- patient successfully extubated 04/21/2025
- prn nebulized bronchodilators - some rhonchi on exam
-Add mucolytic's-Robitussin
-Speech therapy evaluation
- Admission CT head showed no acute intracranial abnormality
- Repeat CT head if she continues to be encephalopathic despite improving metabolic disturbances
- believe that the reason she initially had no cranial nerve responses was due to the RSI medications used in the ER in the setting of severe NALINI with prolonged clearance
- Her TSH is significantly elevated at 31.5 although her free T4 is WNL at 1.3. Dr. Velasco started her on IV levothyroxine on 04/18, and continue trending her TSH to assess for continued improvement; hospitalist discussed her case with
endocrinology.
Recommend to repeat TFTs and consider lowering dose of IV levothyroxine based on repeat TSH if improving; if repeat TSH remains high then continue IV levothyroxine
- Maintain MAP >65
- norepinephrine weaned
- Echocardiogram 04/20/2025-EF 55-60%, mild to moderate mitral regurgitation
- Random cortisol level is 46.2, hence no need for stress dose steroids
- Hold patient's home antihypertensives; will start metoprolol at a low dose as soon as possible to avoid beta-olesya withdrawal
- Nephrology on board; received hemodialysis twice-no need since initial treatments
- Replete electrolytes with K>4, Mg>2
-Patient was initially given cefepime, and is now on Vanc/Zosyn-vancomycin subsequently discontinued-now MRSA positive-1 dose of Vanco and infectious disease consultation
- Infectious disease consultation
- Urine culture positive, growing GNR: Klebsiella
- Maintain euglycemia with goal BG 140-180
- Required insulin gtt on 04/18, but now off and BG much more improved
- Diabetic nurse practitioner following patient-appreciate input
- Transition off insulin gtt back to ISS q4hr and continue to monitor for recurrence of hyperglycema;
- Trend H/H and transfuse if needed to keep Hb>7g/dL; keep plt>20k, unless there is concern for bleeding then keep plt>50k
- transfused 1 unit packed red blood cells 04/22/2025
- Insert dobhoff tube for PO access in tube feeds-await speech therapy evaluation on swallowing
- DVT ppx: HSQ; continue to trend INR given it was >2 on admission
- GI prophylaxis-on pantoprazole
Code status: Full code-Dr. Baig readdressed this with family members including POA on 04/22/2025-want continued full support and reintubation if necessary
Dr. Baig reviewed with POA and family members at the bedside 04/20/2025 and again on 04/22/2025-reviewed current clinical condition, prognosis, and potential need for blood-consent obtained
If patient remains hemodynamically stable without any signs of bleeding then patient could be transferred out of ICU-pulmonary will continue to follow briefly
Reviewed the patient's pertinent medical records including radiographs, microbiology, laboratory evaluations, and discussion with primary team, consultants, pharmacy, nutrition, physical therapy, case management, charge nurse, critical care
nursing, and respiratory therapy.
Data:
CT Head 04/17/2025: No acute intracranial abnormality noted. No acute intracranial hemorrhage. 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
CXR 04/19/2025: Haziness of each hemidiaphragm, suggestive of bibasilar subsegmental atelectasis. Otherwise clear lungs; Tubes and lines remain in satisfactory position.
Subjective Dataa
Subjective Data
Date of Service:
Date of Service: April 22, 2025
Chief Complaint: Assisted Living Manager Follow Up, Pulmonary Follow Up and Vent Management Follow Up
Subjective:
tolerated extubation, intermittently agitated, no increased shortness of breath, and [id number], review of systems unobtainable with confusion and agitation
Review of Systems
General: Other
Objective Data
Data Reviewed
Vital Signs / I&O / Oxygen:
Vital Signs
Temp Pulse Resp BP Pulse Ox
98.9 F 93 14 146/94 98
04/22/25 07:27 04/22/25 07:00 04/22/25 07:00 04/22/25 07:00 04/22/25 07:00
Intake and Output
04/21/25 04/22/25 04/23/25
06:59 06:59 06:59
Intake Total 3368.5 / 3501.9 2683.1 / 2733.1 50 / 50
Output Total 690 / 715 835 / 970 135 / 135
Balance 2678.5 / 2786.9 1848.1 / 1763.1 -85 / -85
SaO2 [CPAP/PSV] 99
SaO2 [A/C] 100
SaO2 98
Nasal Cannula flow liters per 2
minute
Physical Exam
General: Respiratory Distress (n), Comfortable and Other (intubated and sedated, rush in place)
HEENT: Normocephalic and Anicteric
Cardiovascular: Regular Rhythm
Respiratory: Wheeze (n), Crackles (n), Rhonchi (expiratory), Non-Labored Respirations and Accessory Resp Muscle Use
GI: Soft, Non Distended and Non Tender
Neurology: Awake, Alert and No Motor Deficits
Skin: Warm, Good Color, Cyanosis (n) and Jaundice (n)
Labs/Micro/Reports
Lab Data
04/22/25 02:52
04/22/25 02:52
Laboratory Results
04/21/25
09:54
pH 7.42
pCO2 37 H
pO2 146 H
HCO3 24.0
O2 Delivery Level
Microbiology
04/17/25 20:39 Blood/Venous Blood Culture - Preliminary
No Growth in 4 days- Final report to follow
04/17/25 20:39 Blood/Venous Blood Culture - Preliminary
No Growth in 4 days- Final report to follow
04/19/25 16:32 Endotracheal Respiratory Culture - Preliminary
Yeast
04/19/25 16:32 Endotracheal Gram Stain - Preliminary
04/17/25 20:21 Urine Urine Culture - Final
Klebsiella pneumoniae-ESBL
04/19/25 16:31 Urine Legionella Urinary Antigen - Final
Negative for Legionella pneumophila Serogroup 1 antigen.
A negative result does not rule out the possiblity of
Legionella infection due to other serogroups or species of
Legionella. Clinical correlation is recommended.
04/19/25 16:31 Urine Streptococcus pneumoniae Antigen (M - Final
Negative for Streptococcus pneumoniae antigen.
A negative result does not exclude infection with
Streptococcus pneumoniae. Clinical correlation is
recommended.
[2025-04-22] MEDS: MIRALAX TUBE (07:46)
[2025-04-22] MEDS: NSS (PRESERVATIVE FREE) 10 ML IV (08:25)
[2025-04-22] MEDS: PROTONIX IV 40 MG IV (08:25)
--- NOTE | 2025-04-22 08:40 | PN.DE.MGMTRT ---
Insulin Management
- -
04/22/25: Diabetes Management Consult Follow up
Patient found unresponsive at home brought ED 04/17. PMH: Significant for A-Fib, HTN and T2DM. Pt was noted hypotension for EMS with BP in the 80s/50s and hypoglycemia with blood sugar of 35. Treated with dextrose and glucose improved to 147, however
she remained unresponsive/obtunded and was intubated in the ER. She was noted for severe azotemia and metabolic acidosis and hypoglycemia upon arrival to the ED. Her glucose was reportedly in the 20s earlier at home. Metformin is the only diabetes
medication listed. Hemoglobin A1C 5.7%, Cr 0.8, eGFR > 60.
Glucoses subsequently improved and pt developed hyperglycemia, requiring insulin infusion, critical care glycemic protocol was briefly started on 04/18 for 4 hrs.
Pt remains in ICU, confused, unable to interview, no family at bedside.
Currently NPO, on Tube feeds rate 35 cc/hr, glucose range in the 70's.
Will stop Lantus and Q 6 hour NovoLog 2 units and continue low corrective insulin Q 6 hours..
Discussed with Nurse.
Will cont to follow and adjust/restart insulin dose if necessary.
Patient A1C of 5.7% much too low for age and comorbidities. Will not restart metformin.
Diabetes History
- -
Type of Diabetes: 2
Pre-Admission Diabetes Regimen
04/22/25
02:52
Creatinine 1.1 H
Lab Results
Hemoglobin A1c 5.7 % (4.0-5.6) H 04/18/25 04:15
Insulin Pump Settings
IP Diabetes Regimen
04/21/25 04/21/25 04/21/25
11:37 17:56 23:58
Glucose
POC Glucose 71 77 71
04/22/25 04/22/25
02:52 05:54
Glucose 71
POC Glucose 83
Patient Education
[2025-04-22] MEDS: PACERONE 200 MG TUBE (08:50)
--- NOTE | 2025-04-22 09:25 | PTCARENOTE ---
Rec'd care of patient at 0700. Patient alert and communicating appropriately with family at bedside. Anxious and restless in bed at times. Pupils equal and reactive, +2mm. MAEx4. B/l foot drop. NSR with first degree avb on tele. Rate in the 80-90's.
Generalized anasarca. Pulse ox 95-99% on 2L nc. Lung sounds coarse rhonchi throughout. Frequent moist cough and wet, gurgly voice quality. Patient unable to cough up secretions. Large amount of thick, clear secretions suctioned from back of throat.
+BS. TFs infusing through DHT. Incontinent of large loose, watery bowel movement. Rectal trumpet removed due to large amount of leakage. Rocha catheter removed per order. Complete bed bath and jessica care performed. WOC consult in place. Patient with
limited iv access. RIJ HD catheter with pigtail in place. Discussed with VAT. See worklist for full assessment and care.
--- NOTE | 2025-04-22 09:56 | PHA.VAN.FU ---
Vancomycin Assessment / Plan
- Assessment
Renal Function: SCR Increasing
WBC's are: Stable
In the past 24 hrs, patient has been: Afebrile
Concomitant Antimicrobials: ertapenem
Random level 15.4 yesterday - drawn ~16H after previous dose of 500mg
Patient had accumulation from level of 11.7 to 15.4 - expect may have prolonged half-life
- Dosing Plan
Dosing by Level: Re-dose today (Vanc 500mg)
- Monitoring Plan
Random Level: 04/23 06
- Follow Up
Pharmacy will continue to follow.
Vancomycin Follow UP
- -
Patient Age: 84
Patient Sex: Female
Vancomycin Day #: 5 (d/c 04/21 & resumed 04/22 - likely had detectable levels still in system)
Indication: Pulmonary/Respiratory
Requesting Provider: Dr. Baig
Pertinent Antimicrobial Allergies:
no pertinent antibiotic allergies
Height / Weight:
Height 4 ft 11 in
Actual Weight 52.7 kg
Pertinent Past Medical History: BMI ~20; CKD, DM II
- Vital Signs / Lab Results
Temp Pulse Resp BP Pulse Ox
98.9 F 104 16 121/53 98
04/22/25 07:27 04/22/25 09:07 04/22/25 09:07 04/22/25 09:07 04/22/25 08:00
Lab Results - Hematology
04/19/25 04/20/25 04/21/25
13:47 03:17 03:13
WBC 7.5 7.7 6.4
Band Neutrophils
04/22/25
02:52
WBC 4.5 L
Band Neutrophils 0
Lab Results - Chemistry
04/19/25 04/19/25 04/19/25
13:46 15:45 20:11
BUN 6 L Cancelled 8
Creatinine 0.5 L Cancelled 0.7
Estimated Creat Clear 48 Cancelled 42
Albumin 3.0 L
04/19/25 04/20/25 04/21/25
21:00 03:17 03:13
BUN Cancelled 9 14
Creatinine Cancelled 0.8 1.0
Estimated Creat Clear Cancelled 36 29
Albumin 2.5 L 2.1 L
04/22/25
02:52
BUN 17
Creatinine 1.1 H
Estimated Creat Clear 26
Albumin 2.2 L
04/19/25 04/19/25 04/19/25
13:47 20:11 21:00
Lactic Acid 5.4 H* 6.3 H* Cancelled
04/20/25 04/20/25 04/21/25
03:17 11:31 03:13
Lactic Acid 5.3 H* 5.0 H* 2.3 H
04/22/25
02:52
Lactic Acid 1.5
Microbiology Results
04/19/25 16:32 Respiratory Culture - Preliminary
Endotracheal Yeast
Staph aureus MRSA
Gram Stain - Preliminary
04/17/25 20:39 Blood Culture - Preliminary
Blood/Venous No Growth in 4 days- Final report to follow
04/17/25 20:39 Blood Culture - Preliminary
Blood/Venous No Growth in 4 days- Final report to follow
04/17/25 20:21 Urine Culture - Final
Urine Klebsiella pneumoniae-ESBL
04/19/25 16:31 Legionella Urinary Antigen - Final
Urine Negative for Legionella pneumophila Serogroup 1 antigen.
A negative result does not rule out the possiblity of
Legionella infection due to other serogroups or species of
Legionella. Clinical correlation is recommended.
Streptococcus pneumoniae Antigen (M - Final
Negative for Streptococcus pneumoniae antigen.
A negative result does not exclude infection with
Streptococcus pneumoniae. Clinical correlation is
recommended.
Therapeutic Drug Monitoring
Random Vancomycin 15.4 ug/ml 04/21/25 03:13
--- NOTE | 2025-04-22 10:09 | PTCARENOTE ---
Addendum entered by Norma Gonzalez RN 04/22/25 10:48:
Level of care changed to IMU per Hospitalist.
Original Note:
Patient downgraded to tele level.
--- NOTE | 2025-04-22 10:33 | PTCARENOTE ---
WOC at bedside.
[2025-04-22] MEDS: VANCOCIN HCL 500 MG 100 IV (10:47)
--- NOTE | 2025-04-22 10:59 | WOUNDNOTE ---
SACRUM/COCCYX/RECTUM
--- NOTE | 2025-04-22 11:01 | WOUNDNOTE ---
WO RN note: Patient admitted with hypoglycemia, acute renal failure, UTI and hypoxia.
See H&P for complete history. Lives with Granddaughter.
PMH:Patient is a 84y F with PMH significant for A-Fib, HTN and DM-II who presents to ED for evaluation of confusion and N/V. History obtained from ED staff and family at the bedside. Family states that patient has been feeling very weak for the
past few days. Decreased PO intake, N/V x 3 days.
Wound Location and type/assessment: Patient has a DTI on sacrum extends to rectum with small partial thickness opening close to rectum, suspect was a blister that opened. Nursing reports frequent bouts of diarrhea and unable to place rectal tube.
Skin is very fragile with bruising on arms and legs, Platelets low. Skin tear on L arm and L medial lower leg. R arm swelling with IV infiltrate, no open wounds, appears drainage has stopped. R arm on pillow. Heels are blanchable but red, feet
contracted. Nurse said family reports she has been bed bound at home. R cheek with small abrasion and upper lip with scabbed abrasion, nurse suspects from tape pulling when intubated.
Appetite: Poor, swallowing study scheduled, on Tube Feeds.
Pressure redistribution devices in place: Centrella air bed, offloading heel boots in use.
Plan: Local wound care applied to skin tears. Sacrum applied Vaseline gauze, alginate and cut to fit sacral silicone foam. Difficult to keep a clean dressing due to proximity to rectum. Suspect sacral PI was unavoidable due to comorbidities, low
platelets, poor nutrition, pressors etc. Will confirm orders with hospitalist and update nurse.
Updated care plan and will follow as needed.
Note to case management of equipment requested for discharge: SNF
Recommend follow up at wound care center upon discharge.
--- NOTE | 2025-04-22 11:02 | WOUNDNOTE ---
LEFT UPPER ARM
--- NOTE | 2025-04-22 11:14 | W.PN.HOSP.TC ---
Today's Communication/Plan
-
Repeat CBC pending
ID evaluation
Continue with broad-spectrum antibiotics
Speech evaluation
Wean oxygen as tolerated
Repeat chest x-ray
Transfer out of ICU
Assessment / Plan
Assessment / Plan
Gen- awake, confused
HEENT-NC, AT, anicteric, clear oral mm, Dobhoff tube noted
Neck-supple
CV-reg, no M, +S1/S2
Lungs-rhonch b/l
Abd-soft, NT, ND
Ext-no edema
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
Skin-warm and dry
Neuro-awake,
#Acute toxic metabolic encephalopathy -most likely multifactorial etiology including hypoglycemia, hypotension, severe metabolic acidosis, NALINI, etc.
CT head on admission shows no acute abnormality. No hemorrhage. 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 Baseline cognition unknown.
Off Precedex drip
Monitor mentation post extubation
#Acute hypoxic respiratory failure
Status post intubated and mechanical ventilation on admission
s/p extubation
repeat Chest xray.
Remains on nasal cannula. Bronchodilators.
wean o2 as tolerated.
#Shock likely septic ESBL UTI and MRSA pneumonia
off pressors
Did receive IV albumin as ordered by nephrology.
Blood cultures negative so far, urine culture w/ESBL
Urinalysis does show pyuria.
Sputum sample with MRSA/Yeast
Cont Ertapenem and Vancomycin.
Await ID evaluation
#NALINI -likely due to shock, hypotension, ATN, hypovolemia, etc.
#Anasarca
Status post hemodialysis.
Cr stabilized. Lactic acidosis resolved.
Defer diuresis to nephrology
s/p rush removal and voiding
#Acute anemia
presentation with hemoglobin 10.6,
Hgb at 6.5. s/p 1u of PRBC so far.
No hematuria or luminal bleeding noted
In the setting of anemia and blood transfusion requirement hold Eliquis
Repeat CBC pending.
#Acute thrombocytopenia
Possibly due to critical illness, shock, etc. Unlikely to be HIT. Doubt TTP as her platelet count on presentation was normal.
Platelet at 56k. Low probability with 4T score. Will check HIT panel. Hold heparin. Can hold off on starting anticoagulation
If persistent decreasing platelets need to consider hematology input. Repeat CBC pending.
#Acute ischemic hepatitis -elevated transaminases, likely due to the shock.
Bilirubin and alkaline phosphatase normal.
#High AG metabolic acidosis -presentation with shock, lactic acidosis, NALINI.
Unclear if patient with type B lactic acidosis. resolved.
#Hypothermia -resolved.
TSH 31, free T4 normal at 1.3. 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
Empirically started on IV levothyroxine v
Random cortisol more than adequate, 46.2.
Dr. Oconnell discussed with stock counter recommended IV 25 mcg levothyroxine daily. Check TSH once a week if she recovers is able to take oral meds recommend 50 mcg p.o. daily
#Atrial fibrillation, unknown type
restarted on amiodarone
Admission EKG with sinus rhythm and first-degree AV block.
Nonspecific intraventricular conduction block.
ECHO 04/20/25- LV ejection fraction is 55-60%. No regional wall motion abnormalities are seen. Normal right ventricular size and function. Mild to moderate mitral regurgitation. Aortic sclerosis without stenosis. Mild aortic regurgitation.
Hypernatremia -resolved.
Hyperkalemia -resolved.
Hypomagnesemia -monitor.
Hyperphosphatemia -resolved. Now hypophosphatemic.
Hypocalcemia status post repletion
DM2 with hypoglycemia/hyperglycemia -presentation with glucose 45, reportedly glucose in the 20s at home. Metformin listed as the only diabetes medication.
Required insulin IV infusion on 04/18, glucoses subsequently improved and did have hypoglycemia. Currently off IV insulin.
Hemoglobin A1c 5.7%.
Full code
DVT ppx-SCDs
Discussed with patient granddaughter and daughter at bedside in details. All questions were answered to her satisfaction.
Anticipated Discharge: > 48 hours
Subjective/Interval History
-
Date of Service: April 22, 2025
Status post extubation
Remains on oxygenation and tube feeding
Overnight with anemia and blood transfusions ordered
Objective Data
-
Labs:
Laboratory Results
04/22/25 04/22/25
02:52 12:00
WBC 4.5 L
Hgb 6.5 L* Pending
Hct 19.5 L*
Plt Count 53 L
Sodium 135
Potassium 3.6
Chloride 107
Carbon Dioxide 25
BUN 17
Creatinine 1.1 H
Glucose 71
Calcium 6.9 L*
Total Bilirubin 0.6
AST 195 H
ALT 130 H
Alkaline Phosphatase 318 H
Vital Signs:
Vital Signs
Temp Pulse Resp BP Pulse Ox
98.9 F 95 18 134/79 96
04/22/25 07:27 04/22/25 10:00 04/22/25 10:00 04/22/25 10:00 04/22/25 10:00
I&O
04/21/25 04/22/25 04/23/25
06:59 06:59 06:59
Intake Total 3368.5 / 3501.9 2683.1 / 2733.1 310 / 310
Output Total 690 / 715 835 / 970 178 / 178
Balance 2678.5 / 2786.9 1848.1 / 1763.1 132 / 132
Data Reviewed
-
Total Time Spent with Patient (in minutes): 55
[2025-04-22 11:49] LABS: Glucose - Point of Care 81 mg/dl (70-99)
--- NOTE | 2025-04-22 11:51 | CON.ID ---
Consultation
-
Date/Time Consultation Requested: April 22, 2025 [id number]
Date/Time Consultation Performed: April 22, 2025 1150
Requesting Provider: Dr. Fabien Vázquez
Performing Provider: Dr. Brynn Daniels
Reason for Consultation: MRSA pneumonia
Chief Complaint / Past History
Chief Complaint
Lethargy
History of Present Illness
84-year-old female with history of atrial fibrillation, diabetes mellitus, CKD who presented to the hospital on April 17 due to several day history of weakness, nausea, vomiting, confusion, shortness of breath, and poor appetite. Patient was found
unresponsive. Glucose was low in 20. In the ER temperature 89.6, hypotensive in the 70s and 80s systolic require pressor. Patient was hypoxic and she was intubated. Lactic acid was 14.6 increased to 20.4. She was seen severely metabolic
acidosis. She was in NALINI on CKD. Urine noted to be purulent. UA with 3+ leukocyte esterase more than 100 white blood cells. Urine culture ESBL Klebsiella. She received 3 days of Zosyn then transition to ertapenem today. In the meantime patient
noted to have increased secretions. On April 19 sputum was sent for culture and returned as MRSA. Of note she received 3 days of vancomycin which was discontinued yesterday. When the MRSA result came back, vancomycin resumed today. Patient has
been extubated since yesterday.
Past History
Additional Past Medical History:
DM
HTN
Afib
CKD
Additional Past Surgical History:
Bilateral Hip Surgery
Ankle Surgery
Allergy History:
aspirin Allergy (Verified 04/17/25 20:43)
Unknown
Medications Reviewed: Yes
Current Antibiotics:
s/p 3d Zosyn -> Ertapenem d1
Vancomycin x 3 d
Social History
Tobacco: Non-Smoker
Alcohol: None
Drug: None
Living: With Family
Family History
Family History: Not Pertinent
Review of Systems
Review of Systems
Unable to obtain as patient lethargic.
Vital Signs
Temp Pulse Resp BP Pulse Ox
97.7 F 92 18 134/79 96
04/22/25 11:15 04/22/25 11:00 04/22/25 11:00 04/22/25 10:00 04/22/25 11:00
Physical Exam
Physical Exam
Constitutional: Acutely Ill
Head: Other (No frontal or max or sinus tenderness)
Eyes: No Conjunctival Hemorrhage and Sclera Anicteric
Cardiovascular: Regular Rate and S1/S2
Pulmonary: Rhonchi (Upper airways) and Other (Decreased breath sounds at the bases)
Gastrointestinal: Soft, Non Tender, Non Distended and Normal Bowel Sounds
Genito-Urinary: Rocha and Clear Urine; Negative CVA Tenderness
Extremities: Edema (Bilateral upper extremities)
Neurological: Other (Drowsy/lethargic); Negative Meningeal Signs
Lines: HD Cath (Right IJ)
Lab / Diagnostic Study Results
04/22/25 12:00
04/22/25 02:52
Abs Immat Gran (auto) 0.1 10^3/uL (0-0.05) H 04/20/25 03:17
Absolute Neuts (auto) 6.6 10^3/uL (1.4-6.5) H 04/20/25 03:17
Absolute Lymphs (auto) 0.9 10^3/uL (1.2-3.4) L 04/20/25 03:17
Absolute Monos (auto) 0.1 10^3/uL (0.1-0.6) 04/20/25 03:17
Absolute Basos (auto) 0.0 10^3/uL (0-0.2) 04/20/25 03:17
Total Counted 100 04/22/25 02:52
Immature Gran % 1.6 % (0-0.5) H 04/20/25 03:17
Neutrophils % 84.5 % (42.2-75.2) H 04/20/25 03:17
Lymphocytes % 11.6 % (20.5-51.1) L 04/20/25 03:17
Monocytes % 1.6 % (1.7-9.3) L 04/20/25 03:17
Eosinophils % 0.3 % (0-6) 04/20/25 03:17
Basophils % 0.4 % (0-2) 04/20/25 03:17
Abs Neuts (Manual) 3.1 10^3/uL (1.4-6.5) 04/22/25 02:52
Segmented Neutrophils 70 % (42-75) 04/22/25 02:52
Band Neutrophils 0 % (0-3) 04/22/25 02:52
Lymphocytes (Manual) 28 % (20-51) 04/22/25 02:52
Eosinophils (Manual) 2 % (0-6) 04/22/25 02:52
PT 21.4 Sec (11.4-14.6) H 04/20/25 03:17
INR 1.83 04/20/25 03:17
Lactic Acid 1.5 mmol/L (0.7-2.0) 04/22/25 02:52
Ur Squamous Epith Cells /LPF (Few) 04/17/25 20:21
Microbiology Results
Micro:
04/19/25 16:32 Respiratory Culture - Preliminary
Endotracheal Yeast
Staph aureus MRSA
Gram Stain - Preliminary
04/17/25 20:39 Blood Culture - Preliminary
Blood/Venous No Growth in 4 days- Final report to follow
04/17/25 20:39 Blood Culture - Preliminary
Blood/Venous No Growth in 4 days- Final report to follow
04/17/25 20:21 Urine Culture - Final
Urine Klebsiella pneumoniae-ESBL
04/19/25 16:31 Legionella Urinary Antigen - Final
Urine Negative for Legionella pneumophila Serogroup 1 antigen.
A negative result does not rule out the possiblity of
Legionella infection due to other serogroups or species of
Legionella. Clinical correlation is recommended.
Streptococcus pneumoniae Antigen (M - Final
Negative for Streptococcus pneumoniae antigen.
A negative result does not exclude infection with
Streptococcus pneumoniae. Clinical correlation is
recommended.
04/22/25 CXR: Moderate right pleural effusion. Adjacent right lower lung parenchymal opacity is most likely atelectasis, although underlying pneumonia is also possible. Slight interval increase in increased opacity of the left lower hemithorax,
probably mainly from atelectasis. Underlying pneumonia is difficult to exclude. There may also be a small left pleural effusion.
04/19/25 CXR: Haziness of each hemidiaphragm, suggestive of bibasilar subsegmental atelectasis. Otherwise clear lungs.
04/17/25 CXR: Associated mild hypoinflation of the left lung and mild patchy opacity in the retrocardiac left lower lobe, likely atelectasis..
Assessment / Plan
# MRSA PNA
- s/p acute hypoxemic respiratory failure, extubated 04/21/25
- Continue IV Vancomycin to complete 7 days through 04/25/25.
- Aspiration precaution
# MDR- ESBL-Klebsiella UTI
- Continue Ertapenem (d5 effective abx) through 04/27/25.
- Continue contact isolation.
# Worsening thrombocytopenia
-Possibly due to Zosyn -> dc'd 04/21.
- trend plt
# s/p septic shock with multisytem organ failure
# NALINI on CKD - resolving
[2025-04-22] MEDS: ROBITUSSIN 200 MG TUBE ×3 (12:04→22:56)
[2025-04-22 12:46] LABS: Hematocrit 27.9 % (37.0-47.0); Hemoglobin 9.6 g/dL (12.0-16.0); Mean Corp Hgb Conc. 34.4 g/dL (33.0-37.0); Mean Corpuscular Volume 84.5 fL (81.0-99.0); Platelet Count 56 10^3/uL (130-400); Red Cell Dist. Width 16.8 % (11.5-14.5)
--- NOTE | 2025-04-22 12:53 | PTOTSP ---
Speech Therapy Evaluation:
Pt with acute risk factors of dysphagia including acute medical illness with multiple comorbidities (acute hypoxic respiratory failure requiring mechanical ventilation (intubated 04/18 - 04/21), hypoglycemia, metabolic acidosis, shock, UTI, acute
metabolic encephalopathy). Pt with poor secretion management as demonstrated by wet respirations at rest with gurgly vocal quality and inability to clear secretions, requiring oral suctioning. Attempted ice chip x1, in which pt swallowed whole and
demonstrated weak throat clearing/cough and PO trials d/c d/t safety concerns. Pt at high risk of aspiration and related pulmonary complications given dependence for oral care, limited ambulation, compromised respiratory system, impaired cough
function, reduced secretion management, and impaired health status.
Recommend:
1. Strict NPO - cont. alternative means of nutrition
2. Medications non-oral
3. Not appropriate for ARHP at this time
4. Oral care at least 3x/daily
5. PARTS BACK COUNTER MAN to closely follow to assess candidacy for diet initiation versus need for instrumental assessment
[2025-04-22 13:28] LABS: Nucleated Red Blood Cells % 0 %
--- NOTE | 2025-04-22 13:43 | PTCARENOTE ---
Patient without void since indwelling rush catheter removal. Bladder scan - 425 mL. Straight cath'd for 400 mL of yellow urine.
[2025-04-22] MEDS: INVANZ 55 MG IV (14:01)
--- NOTE | 2025-04-22 14:22 | W.PN.NEPH.PH ---
Today's Communication / Plan
-
dc cvc
Assessment/Plan
-
84y F with PMH significant for A-Fib, HTN and DM-II who presents to ED for evaluation of confusion and N/V.
Severe azotemia and metabolic acidosis and hyperglycemic
Impression.
Acute on chronic kidney disease uncertain baseline
Diabetes with hypoglycemia
UTI
Septic shock
A-fib stable
Acute metabolic acidosis/lactic acidosis on metformin.
Plan.
no dialysis needed
ok to dc HD CVC
follow BMP
follow UOP
continue TF/FWF, at goal
DW icu team

critical care time 31 minutes
-
-
Date of Service: April 22, 2025
CC / HPI / ROS
-
Chief Complaint:
Septic shock
History of Present Illness:
Presents with altered mental status abnormal labs and septic shock requiring acute hemodialysis
critically ill in ICU on pressors, vent
UOP oliguric
lactic acid improving to 2.3
Review of Systems:
extubated
no sob
Labs
-
Labs:
WBC 5.1 10^3/uL (4.8-10.8) 04/22/25 11:58
RBC 3.30 10^6/uL (4.20-5.40) L 04/22/25 11:58
Hgb Cancelled 04/22/25 12:00
Hct 27.9 % (37.0-47.0) L 04/22/25 11:58
Plt Count 56 10^3/uL (130-400) L 04/22/25 11:58
Sodium 135 mmol/L (135-145) 04/22/25 02:52
Potassium 3.6 mmol/L (3.5-5.1) 04/22/25 02:52
Chloride 107 mmol/L (98-107) 04/22/25 02:52
Carbon Dioxide 25 mmol/L (22-30) 04/22/25 02:52
BUN 17 mg/dl (7-17) 04/22/25 02:52
Creatinine 1.1 mg/dL (0.6-1.0) H 04/22/25 02:52
eGFR 49.86 04/22/25 02:52
Glucose 71 mg/dl (70-99) 04/22/25 02:52
Calcium 6.9 mg/dl (8.4-10.2) L* 04/22/25 02:52
Phosphorus 2.4 mg/dl (2.5-4.5) L 04/22/25 02:52
Albumin 2.2 g/dl (3.5-5.0) L 04/22/25 02:52
Physical Exam
-
Vital Signs:
Vital Signs
Temp Pulse Resp BP Pulse Ox
97.7 F 91 17 145/80 98
04/22/25 11:15 04/22/25 14:00 04/22/25 14:00 04/22/25 14:00 04/22/25 14:00
--- NOTE | 2025-04-22 15:36 | CM ---
Extubated-tolerating, Weaning FiO2, Ertapenem IV. To transfer out of ICU. Discharge POC: TBD.
--- NOTE | 2025-04-22 16:01 | PTCARENOTE ---
HD catheter removed by VAT per Neurologist. Peripheral site placed in right hand.
[2025-04-22 17:34] LABS: Glucose - Point of Care 139 mg/dl (70-99)
[2025-04-22] MEDS: LEVOTHROID 25 MCG IV (17:38)
--- NOTE | 2025-04-22 21:43 | PTCARENOTE ---
Pt received start of shift. HR SR/ST w/ 1st degree AVB on telemetry. RA 94%. Pt confused/forgetful. Tube feed R nare dobhoff 66cm w/ Osmolite 1.2 running at 45mL/hr w/ 15mL flush. Wet gurgly voice quality, suctioned back of throat - effective. No
void> 6h, Bladder scan 519mL. TT PRODUCTION ASSISTANT Hephziba, straight cathed 475mL yellow urine.
[2025-04-22] MEDS: SENNA SYRUP TUBE (22:07)
[2025-04-22 23:59] LABS: Glucose - Point of Care 179 mg/dl (70-99)
[2025-04-23] VITALS (16 sets, daily range): BP systolic 107–157; BP diastolic 67–97; BMI 22.5
[2025-04-23] MEDS: NOVOLOG FLEXPEN-LOW RESISTANCE 1 UNITS SC ×2 (00:23→06:33)
[2025-04-23 00:33] LABS: Glucose - Point of Care 160 mg/dl (70-99)
[2025-04-23 04:24] LABS: Hematocrit 27.3 % (37.0-47.0); Hemoglobin 9.7 g/dL (12.0-16.0); Mean Corp Hgb Conc. 35.5 g/dL (33.0-37.0); Mean Corpuscular Volume 82.5 fL (81.0-99.0); Nucleated Red Blood Cells % 0 %; Platelet Count 56 10^3/uL (130-400); Red Cell Dist. Width 16.9 % (11.5-14.5)
[2025-04-23 04:42] LABS: ALT (SGPT) 154 U/L (0-35); AST (SGOT) 232 U/L (14-36); Albumin 2.2 g/dl (3.5-5.0); Alkaline Phosphatase 513 U/L (38-126); Blood Urea Nitrogen 19 mg/dl (7-17); Calcium 7.7 mg/dl (8.4-10.2); Carbon Dioxide 21 mmol/L (22-30); Chloride 108 mmol/L (98-107); Estimated Creatinine Clearance 26 ml/min; Glucose 173 mg/dl (70-99); Potassium 3.6 mmol/L (3.5-5.1); Sodium 134 mmol/L (135-145); Total Protein 4.3 g/dl (6.3-8.2); eGFR 49.86
[2025-04-23 05:26] LABS: Glucose - Point of Care 167 mg/dl (70-99)
--- NOTE | 2025-04-23 07:43 | W.PN.INTV ---
Today's Communication / Plan
Recommendations
FiO2 weaned to room air
Aspiration precautions
Speech therapy evaluation
Antibiotics-vancomycin and ertapenem per infectious disease
Stable for transfer out of ICU-repairer kiln car will sign off-please call with pulmonary questions-currently on room air
Assessment
-
84-year-old female who was found unresponsive. On the morning prior to arrival, she was hypoglycemic with blood sugar 51. Upon EMS arrival, blood sugars were 35. IM glucagon given. Patient was hypotensive for EMS with BP in the 80s/50s. Patient
was brought to the ER, and was given additional dextrose with glucose improving to 147, however she remained unresponsive/obtunded and was intubated in the ER. She was found to be hyperkalemic and treated with bicarbonate + calcium chloride. She
was found to be hypothermic (90 �F) via temperature sensing Rush. Head CT performed showing no acute abnormalities. She was also found to be acidotic with NALINI and nephrology contacted and 2 A of bicarb were given. There were no recommendations
for emergent dialysis. Patient was admitted to the ICU and repairer kiln car services consulted for additional management/recommendations.
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
Impression:
#Acute hypoxic respiratory failure requiring mechanical ventilation (intubated 04/18/2025 in ER)
#Severe metabolic acidosis with increased anion gap - anion gap now resolved
#Lactic acidosis in the setting of recent metformin use and NALINI on CKD - lactate improving
#NALINI superimposed on CKD (unknown baseline creatinine) - now on iHD
#Anemia
#Elevated INR in the setting of Eliquis use and reduce PO intake prior to arrival
#Hyperglycemia (HbA1c: 5.7 on 04/18/2025) - briefly required insulin drip (now off as of 04/18/2025)
#Hypocalcemia
#Hypomagnesemia
#Transaminitis
#Subclinical hypothyroidism with significantly elevated TSH at 31.5 (free T4: 1.3)
#UTI
#A-fib on Eliquis
#Moderate mitral regurgitation
Plan:
- Patient was found minimally responsive morning SOCIAL SERVICES COUNSELOR and was 'breathing funny' - was found to have significant lactic acidosis with NALINI and was intubated for airway protection
- The family says that for the past 3 days she has been eating less; was last known normal on the morning prior to arrival.
Family denies that the patient uses any drugs or drinks alcohol. She does have a history of CKD and normally makes urine
- patient successfully extubated 04/21/2025
- prn nebulized bronchodilators - some rhonchi on exam
-mucolytic's-Robitussin continues
-Speech therapy evaluation ongoing
- Admission CT head showed no acute intracranial abnormality
- Repeat CT head if she continues to be encephalopathic despite improving metabolic disturbances
- believe that the reason she initially had no cranial nerve responses was due to the RSI medications used in the ER in the setting of severe NALINI with prolonged clearance
- Her TSH is significantly elevated at 31.5 although her free T4 is WNL at 1.3. Dr. Velasco started her on IV levothyroxine on 04/18, and continue trending her TSH to assess for continued improvement; hospitalist discussed her case with
endocrinology.
Recommend to repeat TFTs and consider lowering dose of IV levothyroxine based on repeat TSH if improving; if repeat TSH remains high then continue IV levothyroxine
- Maintain MAP >65
- norepinephrine weaned off
- Echocardiogram 04/20/2025-EF 55-60%, mild to moderate mitral regurgitation
- Random cortisol level is 46.2, hence no need for stress dose steroids
- Hold patient's home antihypertensives; will start metoprolol at a low dose as soon as possible to avoid beta-olesya withdrawal
- Nephrology on board; received hemodialysis twice-no need since initial treatments
- Replete electrolytes with K>4, Mg>2
-Patient was initially given cefepime, and is now on Vanc/Zosyn-vancomycin subsequently discontinued-now MRSA positive-1 dose of Vanco and infectious disease consultation
- Infectious disease consultation noted-correspondence reviewed-complete 7 days of vancomycin-to be completed 04/25/2025 and ertapenem through 04/27/2025
- Urine culture positive, growing GNR: Klebsiella
- Maintain euglycemia with goal BG 140-180
- Required insulin gtt on 04/18, but now off and BG much more improved
- Diabetic nurse practitioner following patient-appreciate input
- Transition off insulin gtt back to ISS q4hr and continue to monitor for recurrence of hyperglycema;
- Trend H/H and transfuse if needed to keep Hb>7g/dL; keep plt>20k, unless there is concern for bleeding then keep plt>50k
- transfused 1 unit packed red blood cells 04/22/2025
- Insert dobhoff tube for PO access in tube feeds-await speech therapy evaluation on swallowing
- DVT ppx: HSQ; continue to trend INR given it was >2 on admission
- GI prophylaxis-on pantoprazole
Code status: Full code-Dr. Baig readdressed this with family members including POA on 04/22/2025-want continued full support and reintubation if necessary
Dr. Baig reviewed with POA and family members at the bedside 04/20/2025 and again on 04/22/2025-reviewed current clinical condition, prognosis, and potential need for blood-consent obtained
Patient stable for transfer to telemetry-pulmonary will sign off-please call with questions
Data:
CT Head 04/17/2025: No acute intracranial abnormality noted. No acute intracranial hemorrhage. 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
CXR 04/19/2025: Haziness of each hemidiaphragm, suggestive of bibasilar subsegmental atelectasis. Otherwise clear lungs; Tubes and lines remain in satisfactory position.
Subjective Dataa
Subjective Data
Date of Service:
Date of Service: April 23, 2025
Chief Complaint: Land Leasing Information Clerk Follow Up, Pulmonary Follow Up and Vent Management Follow Up
Subjective:
noncommunicative, sometimes agitated, no shortness of breath or pain
Review of Systems
General: Other ( Per HPI)
Objective Data
Data Reviewed
Vital Signs / I&O / Oxygen:
Vital Signs
Temp Pulse Resp BP Pulse Ox
98.1 F 99 16 147/89 95
04/23/25 03:06 04/23/25 06:00 04/23/25 06:00 04/23/25 06:00 04/23/25 06:00
Intake and Output
04/22/25 04/23/25 04/24/25
06:59 06:59 06:59
Intake Total 2683.1 / 2733.1 1565 / 1565
Output Total 835 / 970 1977
Balance 1848.1 / 1763.1 -413 / -413
SaO2 [CPAP/PSV] 99
SaO2 [A/C] 100
SaO2 95
Nasal Cannula flow liters per 2
minute
Physical Exam
General: Respiratory Distress (n), Comfortable and Other (intubated and sedated, rush in place)
HEENT: Normocephalic and Anicteric
Cardiovascular: Regular Rhythm
Respiratory: Wheeze (n), Crackles (n), Rhonchi (expiratory), Non-Labored Respirations and Accessory Resp Muscle Use
GI: Soft, Non Distended and Non Tender
Neurology: Awake, Alert and No Motor Deficits
Skin: Warm, Good Color, Cyanosis (n) and Jaundice (n)
Labs/Micro/Reports
Lab Data
04/23/25 04:03
04/23/25 04:03
Microbiology
04/19/25 16:32 Endotracheal Respiratory Culture - Preliminary
Yeast
Staph aureus MRSA
04/19/25 16:32 Endotracheal Gram Stain - Preliminary
04/17/25 20:39 Blood/Venous Blood Culture - Final
No Growth - Final Report
04/17/25 20:39 Blood/Venous Blood Culture - Final
No Growth - Final Report
04/17/25 20:21 Urine Urine Culture - Final
Klebsiella pneumoniae-ESBL
04/19/25 16:31 Urine Legionella Urinary Antigen - Final
Negative for Legionella pneumophila Serogroup 1 antigen.
A negative result does not rule out the possiblity of
Legionella infection due to other serogroups or species of
Legionella. Clinical correlation is recommended.
04/19/25 16:31 Urine Streptococcus pneumoniae Antigen (M - Final
Negative for Streptococcus pneumoniae antigen.
A negative result does not exclude infection with
Streptococcus pneumoniae. Clinical correlation is
recommended.
--- NOTE | 2025-04-23 08:26 | PN.DE.MGMTRT ---
Insulin Management
- -
04/23/25 Diabetes Management Consult Follow up
Patient found unresponsive at home brought ED 04/17. PMH: Significant for A-Fib, HTN and T2DM. Pt was noted hypotension for EMS with BP in the 80s/50s and hypoglycemia with blood sugar of 35. Treated with dextrose and glucose improved to 147, however
she remained unresponsive/obtunded and was intubated in the ER. She was noted for severe azotemia and metabolic acidosis and hypoglycemia upon arrival to the ED. Her glucose was reportedly in the 20s earlier at home. Metformin is the only diabetes
medication listed. Hemoglobin A1C 5.7%, Cr 0.8, eGFR > 60.
Glucoses subsequently improved and pt developed hyperglycemia, requiring insulin infusion, critical care glycemic protocol was briefly started on 04/18 for 4 hrs.
Pt remains in ICU, confused, unable to interview, no family at bedside.
Currently NPO, on Tube feeds increased from 35 to 45 cc/hr, glucose range 81 to 173 with low corrective insulin only.
Discussed with Nurse.
Will cont to follow and adjust/restart insulin dose if necessary.
Patient A1C of 5.7% much too low for age and comorbidities. Will not restart metformin.
Diabetes History
- -
Type of Diabetes: 2
Pre-Admission Diabetes Regimen
04/23/25
04:03
Creatinine 1.1 H
Lab Results
Hemoglobin A1c 5.7 % (4.0-5.6) H 04/18/25 04:15
Insulin Pump Settings
IP Diabetes Regimen
04/22/25 04/22/25 04/22/25
11:38 17:23 23:47
Glucose
POC Glucose 81 139 H 179 H
04/23/25 04/23/25 04/23/25
00:22 04:03 05:15
Glucose 173 H
POC Glucose 160 H 167 H
Patient Education
[2025-04-23] MEDS: PACERONE 200 MG TUBE (08:39)
[2025-04-23] MEDS: ROBITUSSIN 200 MG TUBE ×4 (08:39→22:51)
[2025-04-23] MEDS: MIRALAX TUBE (08:40)
[2025-04-23] MEDS: NSS (PRESERVATIVE FREE) IV (08:40)
--- NOTE | 2025-04-23 08:57 | PHA.VAN.FU ---
Vancomycin Assessment / Plan
- Assessment
Renal Function: Stable
In the past 24 hrs, patient has been: Afebrile
Concomitant Antimicrobials: ertapenem
- Assessment - Therapeutic Drug Monitoring
Random Level: 14.1 - drawn ~17H after previous dose of 500mg
- Dosing Plan
Dosing by Level: Re-dose today (Vanc 500mg)
- Monitoring Plan
Random Level: 04/24 06
- Follow Up
Pharmacy will continue to follow.
Vancomycin Follow UP
- -
Patient Age: 84
Patient Sex: Female
Vancomycin Day #: 6 (d/c 04/21 & resumed 04/22 - likely had detectable levels still in system)
Indication: Pulmonary/Respiratory
Requesting Provider: Dr. Baig / Jeremiah
Pertinent Antimicrobial Allergies:
no pertinent antibiotic allergies
Height / Weight:
Height 4 ft 11 in
Actual Weight 50.4 kg
Pertinent Past Medical History: BMI ~20; CKD, DM II
- Vital Signs / Lab Results
Temp Pulse Resp BP Pulse Ox
98.2 F 102 18 150/91 96
04/23/25 08:00 04/23/25 08:39 04/23/25 08:00 04/23/25 08:39 04/23/25 08:40
Lab Results - Hematology
04/21/25 04/22/25 04/22/25
03:13 02:52 11:58
WBC 6.4 4.5 L 5.1
Band Neutrophils 0
04/23/25
04:03
WBC 3.9 L
Band Neutrophils
Lab Results - Chemistry
04/21/25 04/22/25 04/23/25
03:13 02:52 04:03
BUN 14 17 19 H
Creatinine 1.0 1.1 H 1.1 H
Estimated Creat Clear 29 26 26
Albumin 2.1 L 2.2 L 2.2 L
04/20/25 04/21/25 04/22/25
11:31 03:13 02:52
Lactic Acid 5.0 H* 2.3 H 1.5
Microbiology Results
04/19/25 16:32 Respiratory Culture - Final
Endotracheal Staph aureus MRSA
Yeast
Gram Stain - Final
04/17/25 20:39 Blood Culture - Final
Blood/Venous No Growth - Final Report
04/17/25 20:39 Blood Culture - Final
Blood/Venous No Growth - Final Report
04/17/25 20:21 Urine Culture - Final
Urine Klebsiella pneumoniae-ESBL
Therapeutic Drug Monitoring
Random Vancomycin 14.1 ug/ml 04/23/25 04:03
--- NOTE | 2025-04-23 09:08 | W.PN.ID1 ---
Date of Service
Date of Service: April 23, 2025
Today's Communication
Continue current antibiotics.
Assessment / Plan
# MRSA PNA
- s/p acute hypoxemic respiratory failure, extubated 04/21/25
- Continue IV Vancomycin to complete 7 days through 04/25/25.
- Aspiration precaution
# MDR- ESBL-Klebsiella UTI
- Continue Ertapenem (d#6 effective abx). Continue through 04/27/25.
- Continue contact isolation.
# Worsening thrombocytopenia
-Possibly due to Zosyn -> dc'd 04/21.
- trend plt. Stable today
# s/p septic shock with multisytem organ failure
# NALINI on CKD - resolving
Chief Complaint
-: Clinical Sepsis, Pneumonia and UTI
Subjective / Review of Systems
Review of Systems: No Fever
Vital Signs / Physical Exam
Vital Signs
Vital Signs
Temp Pulse Resp BP Pulse Ox
98.2 F 102 18 150/91 96
04/23/25 08:00 04/23/25 08:39 04/23/25 08:00 04/23/25 08:39 04/23/25 08:40
Physical Exam
Constitutional: Acutely Ill and Chronically Ill
Eyes: Sclera Anicteric
Cardiovascular: S1/S2; Negative S3/S4
Pulmonary: Rhonchi (Scattered), Coarse and Other (Mildly labored)
Gastrointestinal: Soft, Non Distended, Decreased Bowel Sounds, No Rebound and No Guarding
Extremities: Edema; Negative Cyanosis or Erythema
Skin: Warm and Dry
Neurological: Awake
Psychological: Calm
Objective Data
Lab Data
Lab Results
04/23/25 04:03
04/23/25 04:03
PT 21.4 Sec (11.4-14.6) H 04/20/25 03:17
INR 1.83 04/20/25 03:17
APTT 65.9 Sec (23.4-35.0) H 04/19/25 20:11
Estimated Creat Clear 26 ml/min 04/23/25 04:03
Lactic Acid 1.5 mmol/L (0.7-2.0) 04/22/25 02:52
Total Bilirubin 0.7 mg/dl (0.2-1.3) 04/23/25 04:03
AST 232 U/L (14-36) H 04/23/25 04:03
ALT 154 U/L (0-35) H 04/23/25 04:03
Alkaline Phosphatase 513 U/L (38-126) H 04/23/25 04:03
Most recent labs reviewed.
Micro Results:
04/19/25 16:32 Respiratory Culture - Final
Endotracheal Staph aureus MRSA
Yeast
Gram Stain - Final
04/17/25 20:39 Blood Culture - Final
Blood/Venous No Growth - Final Report
04/17/25 20:39 Blood Culture - Final
Blood/Venous No Growth - Final Report
04/17/25 20:21 Urine Culture - Final
Urine Klebsiella pneumoniae-ESBL
04/19/25 16:31 Legionella Urinary Antigen - Final
Urine Negative for Legionella pneumophila Serogroup 1 antigen.
A negative result does not rule out the possiblity of
Legionella infection due to other serogroups or species of
Legionella. Clinical correlation is recommended.
Streptococcus pneumoniae Antigen (M - Final
Negative for Streptococcus pneumoniae antigen.
A negative result does not exclude infection with
Streptococcus pneumoniae. Clinical correlation is
recommended.
Imaging:
04/22/25 CXR: Moderate right pleural effusion. Adjacent right lower lung parenchymal opacity is most likely atelectasis, although underlying pneumonia is also possible. Slight interval increase in increased opacity of the left lower hemithorax,
probably mainly from atelectasis. Underlying pneumonia is difficult to exclude. There may also be a small left pleural effusion.
04/19/25 CXR: Haziness of each hemidiaphragm, suggestive of bibasilar subsegmental atelectasis. Otherwise clear lungs.
04/17/25 CXR: Associated mild hypoinflation of the left lung and mild patchy opacity in the retrocardiac left lower lobe, likely atelectasis..
--- NOTE | 2025-04-23 09:30 | PTOTSP ---
Speech Language Pathology
Pt seen for dysphagia tx. Wet breath noted at rest, improved from yesterday per RN. Attempted sip of water via straw, but pt unable to generate suction to utilize effectively. Then trialed via pipetted straw. Pt closed lips around straw and
actively accepted, but had labial leakage of almost entire bolus. Increased wet breath quality following this trial, so question aspiration of some of bolus. Also trialed tsp of puree with initial bolus manipulation followed by oral holding. No
swallow initiated despite translation on computer to swallow or with model or buccal/laryngeal massage. Entire bolus suctioned from oral cavity. Cognition currently large barrier in assessment of safe P.O. intake.
Recommend:
(1) Strict NPO
(2) Oral care 4x/day with suctioning as needed
(3) Non-oral meds
(4) Not appropriate for Aspiration Risk Hydration Protocol (ARHP)
(5) MANAGER TALENT to continue to follow
--- NOTE | 2025-04-23 10:55 | PTCARENOTE ---
Patient downgraded to tele level.
--- NOTE | 2025-04-23 11:23 | W.PN.HOSP.TC ---
Today's Communication/Plan
-
Heme-onc eval
FOBT pending
Continue to hold Eliquis
May need to consider diuresis
Chest ultrasound
Assessment / Plan
Assessment / Plan
Gen- awake, confused
HEENT-NC, AT, anicteric, clear oral mm, Dobhoff tube noted
Neck-supple
CV-reg, no M, +S1/S2
Lungs-rhonch b/l
Abd-soft, NT, ND
Ext-no edema
Musculoskeletal-no cyanosis, left clubfoot, edema B/U UE, thighs
Skin-warm and dry
Neuro-awake,
#Acute toxic metabolic encephalopathy -most likely multifactorial etiology including hypoglycemia, hypotension, severe metabolic acidosis, NALINI, etc.
CT head on admission shows no acute abnormality. No hemorrhage. 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 Baseline cognition unknown.
Off Precedex drip
Monitor mentation post extubation
#Acute hypoxic respiratory failure
Status post intubated and mechanical ventilation on admission
s/p extubation
repeat Chest xray
Check chest ultrasound to assess for pleural effusion
Bronchodilators.
wean o2 as tolerated. currently on room air
#Shock likely septic ESBL UTI and MRSA pneumonia
off pressors
Did receive IV albumin as ordered by nephrology.
Blood cultures negative so far, urine culture w/ESBL
Urinalysis does show pyuria.
Sputum sample with MRSA/Yeast
Cont Ertapenem and Vancomycin.
ID on board
#NALINI -likely due to shock, hypotension, ATN, hypovolemia, etc.
#Anasarca
Status post hemodialysis.
Cr stabilized. Lactic acidosis resolved.
Defer diuresis to nephrology
s/p rush removal and voiding
#Acute anemia
presentation with hemoglobin 10.6,
Hgb at 6.5. s/p 1u of PRBC so far.
No hematuria or luminal bleeding noted
FOBT pending
In the setting of anemia and blood transfusion requirement hold Eliquis
Repeat CBC pending.
#Acute thrombocytopenia
Possibly due to critical illness, shock, etc. Unlikely to be HIT. Doubt TTP as her platelet count on presentation was normal.
Platelet at 56k. Low probability with 4T score. Will check HIT panel. Hold heparin. Can hold off on starting anticoagulation
If persistent decreasing platelets need to consider hematology input. Repeat CBC pending.
hematology input
#Urinary retention status post Rush catheter removal
Continue bladder scan protocol.
Out of bed with activity should help
#Dysphagia
Speech recommending n.p.o.
Continue with tube feeding
#Acute ischemic hepatitis -elevated transaminases, likely due to the shock.
Bilirubin and alkaline phosphatase normal.
Hepatitis panel negative
#High AG metabolic acidosis -presentation with shock, lactic acidosis, NALINI.
Unclear if patient with type B lactic acidosis. resolved.
#Hypothermia -resolved.
TSH 31, free T4 normal at 1.3. 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
Empirically started on IV levothyroxine v
Random cortisol more than adequate, 46.2.
Dr. Oconnell discussed with prospecting driller helper recommended IV 25 mcg levothyroxine daily. Check TSH once a week if she recovers is able to take oral meds recommend 50 mcg p.o. daily
#Atrial fibrillation, unknown type
restarted on amiodarone
Admission EKG with sinus rhythm and first-degree AV block.
Nonspecific intraventricular conduction block.
ECHO 04/20/25- LV ejection fraction is 55-60%. No regional wall motion abnormalities are seen. Normal right ventricular size and function. Mild to moderate mitral regurgitation. Aortic sclerosis without stenosis. Mild aortic regurgitation.
Hypernatremia -resolved.
Hyperkalemia -resolved.
Hypomagnesemia -monitor.
Hyperphosphatemia -resolved. Now hypophosphatemic.
Hypocalcemia status post repletion
DM2 with hypoglycemia/hyperglycemia -presentation with glucose 45, reportedly glucose in the 20s at home. Metformin listed as the only diabetes medication.
Required insulin IV infusion on 04/18, glucoses subsequently improved and did have hypoglycemia. Currently off IV insulin.
Hemoglobin A1c 5.7%.
Full code
DVT ppx-SCDs
Discussed with patient granddaughter over the phone in details
Anticipated Discharge: > 48 hours
Subjective/Interval History
-
Date of Service: April 23, 2025
off oxygen
currently undergoing ST eval
Objective Data
-
Labs:
Laboratory Results
04/23/25
04:03
WBC 3.9 L
Hgb 9.7 L
Hct 27.3 L
Plt Count 56 L
Sodium 134 L
Potassium 3.6
Chloride 108 H
Carbon Dioxide 21 L
BUN 19 H
Creatinine 1.1 H
Glucose 173 H
Calcium 7.7 L
Total Bilirubin 0.7
AST 232 H
ALT 154 H
Alkaline Phosphatase 513 H
Vital Signs:
Vital Signs
Temp Pulse Resp BP Pulse Ox
97.7 F 102 18 140/86 96
04/23/25 11:22 04/23/25 11:00 04/23/25 11:00 04/23/25 11:00 04/23/25 11:00
I&O
04/22/25 04/23/25 04/24/25
06:59 06:59 06:59
Intake Total 2683.1 / 2733.1 1565 / 1625 300 / 300
Output Total 835 / 970 1977 / 1977 0 / 0
Balance 1848.1 / 1763.1 -413 / -353 300 / 300
Data Reviewed
-
Total Time Spent with Patient (in minutes): 65
[2025-04-23 11:57] LABS: Glucose - Point of Care 146 mg/dl (70-99)
--- NOTE | 2025-04-23 12:03 | W.PN.NEPH.PH ---
Today's Communication / Plan
-
Lasix x 1
Rocha catheter placed
Assessment/Plan
-
84y F with PMH significant for A-Fib, HTN and DM-II who presents to ED for evaluation of confusion and N/V.
Severe azotemia and metabolic acidosis and hyperglycemic
Impression.
Acute on chronic kidney disease uncertain baseline
Diabetes with hypoglycemia
UTI= ESBL Klebsiella
Septic shock
A-fib stable
Acute metabolic acidosis/lactic acidosis on metformin.
Plan.
no dialysis needed
follow BMP
follow UOP
Rocha catheter placement for 400+ residual x 2
Lasix x 1
DW icu team

critical care time 31 minutes
-
-
Date of Service: April 23, 2025
CC / HPI / ROS
-
Chief Complaint:
Septic shock
History of Present Illness:
Presents with altered mental status abnormal labs and septic shock requiring acute hemodialysis
critically ill in ICU
UOP oliguric
lactic acid improving to 2.3
Review of Systems:
extubated
no sob
Labs
-
Labs:
WBC 3.9 10^3/uL (4.8-10.8) L 04/23/25 04:03
RBC 3.31 10^6/uL (4.20-5.40) L 04/23/25 04:03
Hgb 9.7 g/dL (12.0-16.0) L 04/23/25 04:03
Hct 27.3 % (37.0-47.0) L 04/23/25 04:03
Plt Count 56 10^3/uL (130-400) L 04/23/25 04:03
Sodium 134 mmol/L (135-145) L 04/23/25 04:03
Potassium 3.6 mmol/L (3.5-5.1) 04/23/25 04:03
Chloride 108 mmol/L (98-107) H 04/23/25 04:03
Carbon Dioxide 21 mmol/L (22-30) L 04/23/25 04:03
BUN 19 mg/dl (7-17) H 04/23/25 04:03
Creatinine 1.1 mg/dL (0.6-1.0) H 04/23/25 04:03
eGFR 49.86 04/23/25 04:03
Glucose 173 mg/dl (70-99) H 04/23/25 04:03
Calcium 7.7 mg/dl (8.4-10.2) L 04/23/25 04:03
Phosphorus 2.8 mg/dl (2.5-4.5) 04/23/25 04:03
Albumin 2.2 g/dl (3.5-5.0) L 04/23/25 04:03
Physical Exam
-
Vital Signs:
Vital Signs
Temp Pulse Resp BP Pulse Ox
97.7 F 102 18 140/86 96
04/23/25 11:22 04/23/25 11:00 04/23/25 11:00 04/23/25 11:00 04/23/25 11:00
[2025-04-23] MEDS: NOVOLOG FLEXPEN-LOW RESISTANCE SC ×2 (12:26→18:02)
--- NOTE | 2025-04-23 12:30 | PTCARENOTE ---
Rec'd care of patient at 0700. Patient alert. Difficulty assessing orientation. Patient confusion, difficulty with hearing and voice wet/gurgly causing barrier with manager materials management. MAEx4. Generalized weakness. Trace movement in b/l LE with b/l foot
drop. NSR with prolonged QT interval on tele. +1 generalized anasarca. +2 edema in RUE. Assessed by Hospitalist at bedside. Elevated on pillow. Palpable pulses. Lung sounds coarse rhonchi throughout. Pulse ox 96-97% on RA. Oral secretions improved
s/p initiation of Robitussin. +BS. TFs running at goal through DHT. No BM. Loose stools reported by previous RN overnight. Miralax held. Patient straight cath'd multiple times since removal of rush. Discussed with Hospitalist and Direct Service Provider.
Order to place indwelling rush catheter for acute retention. Plan for diuresis. Peripheral site flushed and capped.
[2025-04-23] MEDS: VANCOCIN HCL 500 MG 100 IV (12:50)
[2025-04-23] MEDS: LASIX 40 MG IV (12:51)
--- NOTE | 2025-04-23 13:17 | PTCARENOTE ---
Indwelling rush catheter inserted for urinary retention. 500 cc's of yellow urine drained. 40mg IV Lasix administered as ordered.
--- NOTE | 2025-04-23 14:11 | PTCARENOTE ---
Chest US in progress.
[2025-04-23] MEDS: INVANZ 55 MG IV (14:19)
--- NOTE | 2025-04-23 15:40 | CM ---
Transitioned from FiO2 to RA, B/L pleural effusions, IV/AB, rush. Discharge POC: Awaiting therapy evaluation and recommendations.
--- NOTE | 2025-04-23 15:41 | CON.ONC ---
Consultation
-
Date Consultation Requested: 04/23/25
Date Consultation Performed: 04/23/25
Impression
Impression
Metabolic encephalopathy
Metabolic acidosis
NALINI
Hypoxic respiratory insufficiency
Septic shock
Ischemic hepatitis
Atrial fibrillation
Acute thrombocytopenia
Anemia
Plan
Plan
Urologic findings are very likely secondary to the acute severity of illness
Hypothermia often causes delayed cytopenias
CBC daily maintain Hb>7g/dL; keep plt>20k, unless there is concern for bleeding then keep plt>50k
Likely a component of DIC would repeat PT PTT fibrinogen
Check direct platelet antibody to ascertain whether intervention for ITP might be helpful, platelets stable
No active bleeding
Patient History
History of Present Illness
84-year-old female who was found unresponsive. On the morning prior to arrival, she was hypoglycemic with blood sugar 51. Upon EMS arrival, blood sugars were 35. IM glucagon given. Patient was hypotensive for EMS with BP in the 80s/50s. Patient
was brought to the ER, and was given additional dextrose with glucose improving to 147, however she remained unresponsive/obtunded and was intubated in the ER. She was found to be hyperkalemic and treated with bicarbonate + calcium chloride. She
was found to be hypothermic (90 �F) via temperature sensing Rocha. Head CT performed showing no acute abnormalities. She was also found to be acidotic with NALINI and nephrology contacted and 2 A of bicarb were given. There were no recommendations
for emergent dialysis. Patient was admitted to the ICU
Past-Medical/Surgical History
Medical History
Past Medical History
Past Medical History: Reports Other
Additional Past Medical History:
Hypertension
DM-II
A-Fib
CKD
Past surgical history
Bilateral Hip Surgery
Ankle Surgery
Social History
Tobacco: Non-smoker
Alcohol: None
Drug: None
Family History
Family History: Not pertinent
Patient Medication
�Medication �Instructions �Recorded �Confirmed �Last Taken �Type
amiodarone 200 mg tablet 200 mg PO DAILY Heart 04/17/25 04/17/25 Unknown History
Disease/Condition
apixaban 2.5 mg tablet (Eliquis) 2.5 mg PO BID Blood Clot 04/17/25 04/17/25 Unknown History
Prevention/Tx
ergocalciferol (vitamin D2) 1,250 1,250 mcg PO MO Supplement 04/17/25 04/17/25 Unknown History
mcg (50,000 unit) capsule
famotidine 20 mg tablet (Pepcid) 20 mg PO BIDPRN PRN gerd 04/17/25 04/17/25 Unknown History
ferrous sulfate 325 mg (65 mg 325 mg PO MOWEFR Supplement 04/17/25 04/17/25 Unknown History
iron) tablet
guaifenesin 100 mg/5 mL oral 200 mg PO Q6HPRN PRN cough 04/17/25 04/17/25 Unknown History
liquid (Karli-Tussin)
lisinopril 40 mg tablet 40 mg PO DAILY Blood Pressure 04/17/25 04/17/25 Unknown History
metformin 500 mg tablet 500 mg PO BID Diabetes 04/17/25 04/17/25 Unknown History
metoprolol succinate 25 mg 25 mg PO DAILY Blood Pressure 04/17/25 04/17/25 Unknown History
tablet,extended release 24 hr
(Toprol XL)
pravastatin 40 mg tablet 40 mg PO DAILY High Cholesterol 04/17/25 04/17/25 Unknown History
Active Medications
Generic Name Dose Route Start Last Admin
Trade Name Freq PRN Reason Stop Dose Admin
Acetaminophen 650 mg 04/17/25 22:50
Acetaminophen 650 Mg Rectal Suppository RECTAL 05/15/25 22:49
Q6HPRN PRN
Pain / Temp > 101
Amiodarone HCl 200 mg 04/21/25 10:00 04/23/25 08:39
Amiodarone 200 Mg Tablet TUBE 05/19/25 09:59 200 mg
DAILY ANA LUISA Administration
Bisacodyl 10 mg 04/17/25 23:28
Bisacodyl 10 Mg Rectal Suppository RECTAL 05/15/25 23:27
DAILYPRN PRN
no BM within 72 hours
Dextrose 12.5 grams 04/19/25 17:00 04/19/25 18:22
Dextrose 50% (0.5 Grams/Ml) 50 Ml Syringe IV 05/17/25 16:59 12.5 grams
[id number] PRN Administration
hypoglycemia
Protocol
Glucagon 1 mg 04/19/25 17:00
Glucagon 1 Mg Vial IM 05/17/25 16:59
PRN PRN
hypoglycemia - no IV access
Protocol
Guaifenesin 200 mg 04/22/25 13:00 04/23/25 12:50
Guaifenesin Oral Solution (200 Mg/10 Ml) Cup TUBE 05/20/25 12:59 200 mg
QID ANA LUISA Administration
Heparin Sodium 5,000 units 04/18/25 08:00 04/20/25 07:21
Heparin 5,000 Units/Ml 1 Ml Vial SC 05/16/25 07:59 5,000 units
On Hold: 04/20/25 13:50 Q12 ANA LUISA Administration
Ertapenem 500 mg/ Sodium 55 mls @ 110 mls/hr 04/21/25 14:00 04/23/25 14:19
Chloride IV 04/27/25 14:29 55 mls
Q24H ANA LUISA Administration
Vancomycin HCl 1 each/ Device 0 mls @ 0 mls/hr 04/22/25 10:00
IV
PER PROTOCOL ANA LUISA
Protocol
As Directed
Insulin Aspart 0 units 04/20/25 18:00 04/23/25 12:26
Insulin Aspart Low Resistance 300 Units/3 Ml Pen.Injctr SC 05/18/25 17:59 Not Given
Q6 ANA LUISA
Protocol
Levothyroxine Sodium 25 mcg 04/20/25 18:00 04/22/25 17:38
Levothyroxine 100 Mcg (20 Mcg/Ml) Vial IV 05/18/25 17:59 25 mcg
DAILY@1800 ANA LUISA Administration
Protocol
Polyethylene Glycol 17 grams 04/18/25 08:00 04/23/25 08:40
Polyethylene Glycol Powder 17 Grams Packet TUBE 05/16/25 07:59 Not Given
DAILY ANA LUISA
Sennosides 8.8 mg 04/21/25 22:00 04/22/25 22:07
Sennosides (Senna Syrup) 8.8 Mg/5 Ml Unit Dose Cup TUBE 05/19/25 21:59 Not Given
HS ANA LUISA
Sodium Chloride 0 flush 04/17/25 23:00
Sodium Chloride 0.9% (Flush) Syringe IV 05/15/25 22:59
PER PROTOCOL ANA LUISA
Sodium Chloride 10 ml 04/18/25 08:00 04/23/25 08:40
Sodium Chloride 0.9% (Preservative Free) 10 Ml Vial IV 05/16/25 07:59 Not Given
DAILY ANA LUISA
Review of Systems
-
Unobtainable
Physical Exam
-
HEENT-NC, AT, anicteric, clear oral mm
Neck-supple
CV-reg, no M, +S1/S2
Lungs-clear B/L
Abd-soft, NT, ND
Ext-no edema
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
Skin-warm and dry
Labs
Lab Results
WBC 3.9 10^3/uL (4.8-10.8) L 04/23/25 04:03
RBC 3.31 10^6/uL (4.20-5.40) L 04/23/25 04:03
Hgb 9.7 g/dL (12.0-16.0) L 04/23/25 04:03
Hct 27.3 % (37.0-47.0) L 04/23/25 04:03
MCV 82.5 fL (81.0-99.0) 04/23/25 04:03
MCH 29.3 pg (27.0-31.0) 04/23/25 04:03
MCHC 35.5 g/dL (33.0-37.0) 04/23/25 04:03
RDW 16.9 % (11.5-14.5) H 04/23/25 04:03
Plt Count 56 10^3/uL (130-400) L 04/23/25 04:03
MPV 12.1 fL (7.4-10.4) H 04/23/25 04:03
Abs Immat Gran (auto) 0.0 10^3/uL (0-0.05) 04/23/25 04:03
Absolute Neuts (auto) 2.8 10^3/uL (1.4-6.5) 04/23/25 04:03
Absolute Lymphs (auto) 0.8 10^3/uL (1.2-3.4) L 04/23/25 04:03
Absolute Monos (auto) 0.2 10^3/uL (0.1-0.6) 04/23/25 04:03
Absolute Eos (auto) 0.0 10^3/uL (0-0.7) 04/23/25 04:03
Absolute Basos (auto) 0.0 10^3/uL (0-0.2) 04/23/25 04:03
Immature Gran % 0.8 % (0-0.5) H 04/23/25 04:03
Neutrophils % 72.1 % (42.2-75.2) 04/23/25 04:03
Lymphocytes % 20.3 % (20.5-51.1) L 04/23/25 04:03
Monocytes % 5.7 % (1.7-9.3) 04/23/25 04:03
Eosinophils % 0.8 % (0-6) 04/23/25 04:03
Basophils % 0.3 % (0-2) 04/23/25 04:03
Creatinine 1.1 mg/dL (0.6-1.0) H 04/23/25 04:03
Vital Signs
Vital Signs
Temp Pulse Resp BP Pulse Ox
97.8 F 104 19 138/91 97
04/23/25 15:39 04/23/25 15:00 04/23/25 15:00 04/23/25 15:00 04/23/25 15:00
[2025-04-23 16:43] LABS: Glucose - Point of Care 140 mg/dl (70-99)
--- NOTE | 2025-04-23 16:46 | TRANSFER ---
Patient transferred to in bed with belongings. Prior to transport, patient incontinent of large gelatinous BM. Hospitalist notified. Sample sent to r/o [facility]. Wound care completed as ordered.
[2025-04-23] MEDS: LEVOTHROID 25 MCG IV (18:02)
[2025-04-23 20:39] LABS: Glucose - Point of Care 171 mg/dl (70-99)
[2025-04-23] MEDS: SENNA SYRUP TUBE (22:51)
[2025-04-24] VITALS (8 sets, daily range): BP systolic 132–189; BP diastolic 75–109
[2025-04-24 01:34] LABS: Glucose - Point of Care 155 mg/dl (70-99)
[2025-04-24] MEDS: NOVOLOG FLEXPEN-LOW RESISTANCE 300 UNITS SC ×2 (01:42→07:39)
[2025-04-24 06:27] LABS: Glucose - Point of Care 158 mg/dl (70-99)
[2025-04-24 07:57] LABS: Glucose - Point of Care 171 mg/dl (70-99)
[2025-04-24] MEDS: MIRALAX TUBE (09:45)
[2025-04-24] MEDS: NSS (PRESERVATIVE FREE) IV (09:46)
[2025-04-24] MEDS: PACERONE 200 MG TUBE (09:47)
[2025-04-24] MEDS: ROBITUSSIN 200 MG TUBE ×4 (09:53→21:04)
--- NOTE | 2025-04-24 10:57 | W.PN.HOSP.TC ---
Today's Communication/Plan
-
Okay to draw blood from the foot
Failed speech and swallow-continue with tube feeding
Continue with broad-spectrum antibiotics
Transition to p.o. Synthroid
Prognosis guarded
Assessment / Plan
Assessment / Plan
Gen- awake, confused
HEENT-NC, AT, anicteric, clear oral mm, Dobhoff tube noted
Neck-supple
CV-reg, no M, +S1/S2
Lungs-rhonch b/l
Abd-soft, NT, ND
Ext-no edema
Musculoskeletal-no cyanosis, left clubfoot, edema B/U UE, thighs
Skin-warm and dry
Neuro-awake,
#Acute toxic metabolic encephalopathy -most likely multifactorial etiology including hypoglycemia, hypotension, severe metabolic acidosis, NALINI, etc.
CT head on admission shows no acute abnormality. No hemorrhage. 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 Baseline cognition unknown.
Off Precedex drip
Monitor mentation post extubation
#Acute hypoxic respiratory failure
Status post intubated and mechanical ventilation on admission
s/p extubation
Chest ultrasound with right-sided pleural effusion. iRad for thoracentesis. Fluid studies ordered.
Bronchodilators.
wean o2 as tolerated. currently on room air
#Shock likely septic ESBL UTI and MRSA pneumonia
off pressors
Did receive IV albumin as ordered by nephrology.
Blood cultures negative so far, urine culture w/ESBL
Urinalysis does show pyuria.
Sputum sample with MRSA/Yeast
Cont Ertapenem and Vancomycin.
ID on board
#NALINI -likely due to shock, hypotension, ATN, hypovolemia, etc.
#Anasarca
Status post hemodialysis.
Cr stabilized. Lactic acidosis resolved.
Defer diuresis to nephrology
s/p rush removal and voiding
#Acute anemia
presentation with hemoglobin 10.6,
Hgb at 6.5. s/p 1u of PRBC so far.
No hematuria or luminal bleeding noted
FOBT pending
In the setting of anemia and blood transfusion requirement hold Eliquis
Repeat CBC pending.
#Acute thrombocytopenia
Possibly due to critical illness, shock, antibiotics inflammatory state etc . Unlikely to be HIT. Doubt TTP as her platelet count on presentation was normal.
Platelet at 56k. Low probability with 4T score. Will check HIT panel. Hold heparin. Can hold off on starting anticoagulation
If persistent decreasing platelets need to consider hematology input. Repeat CBC pending.
hematology input-Platetlets associated Ab pending
#Urinary retention status post Rush catheter removal
Continue bladder scan protocol.
Out of bed with activity should help
#Dysphagia
Speech recommending n.p.o.
Continue with tube feeding
#Bilateral superficial thrombosis
can place Midline superior to clot.
#Acute ischemic hepatitis -elevated transaminases, likely due to the shock.
Bilirubin and alkaline phosphatase normal.
Hepatitis panel negative
#High AG metabolic acidosis -presentation with shock, lactic acidosis, NALINI.
Unclear if patient with type B lactic acidosis. resolved.
#Hypothermia -resolved.
TSH 31, free T4 normal at 1.3. 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
Empirically started on IV levothyroxine and now transition to p.o.
Random cortisol more than adequate, 46.2.
Transition patient to 50 mcg Synthroid.
#Atrial fibrillation, unknown type
restarted on amiodarone
Admission EKG with sinus rhythm and first-degree AV block.
Nonspecific intraventricular conduction block.
ECHO 04/20/25- LV ejection fraction is 55-60%. No regional wall motion abnormalities are seen. Normal right ventricular size and function. Mild to moderate mitral regurgitation. Aortic sclerosis without stenosis. Mild aortic regurgitation.
Hypernatremia -resolved.
Hyperkalemia -resolved.
Hypomagnesemia -monitor.
Hyperphosphatemia -resolved. Now hypophosphatemic.
Hypocalcemia status post repletion
DM2 with hypoglycemia/hyperglycemia -presentation with glucose 45, reportedly glucose in the 20s at home. Metformin listed as the only diabetes medication.
Required insulin IV infusion on 04/18, glucoses subsequently improved and did have hypoglycemia. Currently off IV insulin.
Hemoglobin A1c 5.7%.
Full code
DVT ppx-SCDs in setting of thrombocytopenia.
Discussed with patient granddaughter and daughter at bedside in details. Hospice was discussed but family refused.
okay to draw bloodwork from foot.
Anticipated Discharge: > 48 hours
Subjective/Interval History
-
Date of Service: April 24, 2025
remains on tube feeding
on room air
family at bedside assisting with translational
Objective Data
-
Labs:
Laboratory Results
04/24/25
06:00
WBC Pending
Hgb Pending
Hct Pending
Plt Count Pending
Sodium Pending
Potassium Pending
Chloride Pending
Carbon Dioxide Pending
BUN Pending
Creatinine Pending
Glucose Pending
Calcium Pending
Total Bilirubin Pending
AST Pending
ALT Pending
Alkaline Phosphatase Pending
Vital Signs:
Vital Signs
Temp Pulse Resp BP Pulse Ox
97.7 F 110 20 180/94 98
04/24/25 08:02 04/24/25 08:02 04/24/25 08:02 04/24/25 08:02 04/24/25 08:02
I&O
04/23/25 04/24/25 04/25/25
06:59 06:59 06:59
Intake Total 1565 / 1625 755 / 755 720 / 720
Output Total 1977 / 1977 1480 / 1480 1350 / 1350
Balance -413 / -353 -724 / -474 -715 / -057
Data Reviewed
-
Total Time Spent with Patient (in minutes): 55
[2025-04-24 11:56] LABS: Glucose - Point of Care 181 mg/dl (70-99)
[2025-04-24 12:50] LABS: Hematocrit 30.7 % (37.0-47.0); Hemoglobin 10.7 g/dL (12.0-16.0); Mean Corp Hgb Conc. 34.9 g/dL (33.0-37.0); Mean Corpuscular Volume 82.7 fL (81.0-99.0); Nucleated Red Blood Cells % 0 %; Platelet Count 64 10^3/uL (130-400); Red Cell Dist. Width 16.7 % (11.5-14.5)
[2025-04-24] MEDS: NOVOLOG FLEXPEN-LOW RESISTANCE 1 UNITS SC ×3 (12:53→23:20)
[2025-04-24 13:03] LABS: ALT (SGPT) 122 U/L (0-35); AST (SGOT) 102 U/L (14-36); Albumin 2.4 g/dl (3.5-5.0); Alkaline Phosphatase 489 U/L (38-126); Blood Urea Nitrogen 22 mg/dl (7-17); Calcium 8.0 mg/dl (8.4-10.2); Carbon Dioxide 24 mmol/L (22-30); Chloride 107 mmol/L (98-107); Estimated Creatinine Clearance 29 ml/min; Glucose 187 mg/dl (70-99); LDH 269 U/L (120-246); Potassium 3.4 mmol/L (3.5-5.1); Sodium 136 mmol/L (135-145); Total Protein 4.8 g/dl (6.3-8.2); eGFR 55.90
[2025-04-24] MEDS: INVANZ 55 MG IV (13:32)
[2025-04-24] MEDS: KCL ELIXIR 20 MEQ TUBE ×2 (13:44→14:00)
--- NOTE | 2025-04-24 13:44 | W.PN.NEPH.PH ---
Today's Communication / Plan
-
replete K
Assessment/Plan
-
84y F with PMH significant for A-Fib, HTN and DM-II who presents to ED for evaluation of confusion and N/V.
Severe azotemia and metabolic acidosis and hyperglycemic
Impression.
Acute on chronic kidney disease uncertain baseline
Diabetes with hypoglycemia
UTI= ESBL Klebsiella
Septic shock
A-fib stable
Acute metabolic acidosis/lactic acidosis on metformin.
Plan.
no dialysis needed
follow BMP
Rocha catheter placement for 400+ residual x 2
replete K
no lasix today
-
-
Date of Service: April 24, 2025
CC / HPI / ROS
-
Chief Complaint:
Septic shock
History of Present Illness:
Presents with altered mental status abnormal labs and septic shock requiring acute hemodialysis
Cr stable 1.0
K low 3.4
LFTs slightly better
on TF with FWF 60ml/hr total
Review of Systems:
extubated
tracks with eyes,
does not follow commands
Labs
-
Labs:
WBC 3.0 10^3/uL (4.8-10.8) L 04/24/25 12:33
RBC 3.71 10^6/uL (4.20-5.40) L 04/24/25 12:33
Hgb 10.7 g/dL (12.0-16.0) L 04/24/25 12:33
Hct 30.7 % (37.0-47.0) L 04/24/25 12:33
Plt Count 64 10^3/uL (130-400) L 04/24/25 12:33
Sodium 136 mmol/L (135-145) 04/24/25 12:33
Potassium 3.4 mmol/L (3.5-5.1) L 04/24/25 12:33
Chloride 107 mmol/L (98-107) 04/24/25 12:33
Carbon Dioxide 24 mmol/L (22-30) 04/24/25 12:33
BUN 22 mg/dl (7-17) H 04/24/25 12:33
Creatinine 1.0 mg/dL (0.6-1.0) 04/24/25 12:33
eGFR 55.90 04/24/25 12:33
Glucose 187 mg/dl (70-99) H 04/24/25 12:33
Calcium 8.0 mg/dl (8.4-10.2) L 04/24/25 12:33
Phosphorus 3.6 mg/dl (2.5-4.5) 04/24/25 12:33
Albumin 2.4 g/dl (3.5-5.0) L 04/24/25 12:33
Physical Exam
-
Vital Signs:
Vital Signs
Temp Pulse Resp BP Pulse Ox
97.9 F 113 22 189/109 98
04/24/25 11:59 04/24/25 11:59 04/24/25 11:59 04/24/25 11:59 04/24/25 11:59
Cardiovascular:: Regular rate and rhythm
Respiratory:: Bilateral: Coarse
Lung Excursion:: Normal
Abdomen:: Nontender and Soft
Bowel Sounds:: Normal
Extremity Edema:: None: Bilateral:
--- NOTE | 2025-04-24 13:47 | PHA.VAN.FU ---
Addendum entered and electronically signed by Mildred Gan [facility] 04/25/25 11:34:
Patient anticipated to maintain levels through stop time - no additional dosing necessary
Original Note:
Vancomycin Assessment / Plan
- Assessment
Renal Function: Stable
WBC's are: Stable
In the past 24 hrs, patient has been: Afebrile
- Assessment - Therapeutic Drug Monitoring
Random Level: 14.5 - drawn ~23.5H after previous dose of 500mg
- Dosing Plan
Dosing by Level: Re-dose today (Vanc 500mg)
- Monitoring Plan
No level(s) ordered at this time: no further levels given planned stop date of 04/25
Monitoring Comments: if course extended can obtain repeat levels
- Follow Up
Pharmacy will continue to follow.
Vancomycin Follow UP
- -
Patient Age: 84
Patient Sex: Female
Vancomycin Day #: 7 (d/c 04/21 & resumed 04/22 - likely had detectable levels still in system)
Indication: Pulmonary/Respiratory
Requesting Provider: Dr. Baig / Jeremiah
Pertinent Antimicrobial Allergies:
no pertinent antibiotic allergies
Height / Weight:
Height 4 ft 11 in
Actual Weight 50.4 kg
Pertinent Past Medical History: BMI ~20; CKD, DM II
- Vital Signs / Lab Results
Temp Pulse Resp BP Pulse Ox
97.9 F 113 22 189/109 98
04/24/25 11:59 04/24/25 11:59 04/24/25 11:59 04/24/25 11:59 04/24/25 11:59
Lab Results - Hematology
04/22/25 04/22/25 04/23/25
02:52 11:58 04:03
WBC 4.5 L 5.1 3.9 L
Band Neutrophils 0
04/24/25
12:33
WBC 3.0 L
Band Neutrophils
Lab Results - Chemistry
04/22/25 04/23/25 04/24/25
02:52 04:03 12:33
BUN 17 19 H 22 H
Creatinine 1.1 H 1.1 H 1.0
Estimated Creat Clear
Albumin 2.2 L 2.2 L 2.4 L
04/22/25
02:52
Lactic Acid 1.5
Microbiology Results
04/23/25 16:07 C. difficile GDH Antigen & Toxins - Final
Feces/Stool Negative for toxigenic C.difficile
04/19/25 16:32 Respiratory Culture - Final
Endotracheal Staph aureus MRSA
Yeast
Gram Stain - Final
04/17/25 20:39 Blood Culture - Final
Blood/Venous No Growth - Final Report
04/17/25 20:39 Blood Culture - Final
Blood/Venous No Growth - Final Report
Therapeutic Drug Monitoring
Random Vancomycin 14.5 ug/ml 04/24/25 12:33
[2025-04-24] MEDS: VANCOCIN HCL 500 MG 100 IV (13:59)
[2025-04-24 15:51] LABS: Glucose - Point of Care 151 mg/dl (70-99)
[2025-04-24] MEDS: SENNA SYRUP TUBE (19:50)
[2025-04-24 23:18] LABS: Glucose - Point of Care 162 mg/dl (70-99)
[2025-04-25 03:20] VITALS: BP 154/74
[2025-04-25] MEDS: SYNTHROID 50 MCG PO (05:05)
[2025-04-25 05:09] LABS: Glucose - Point of Care 175 mg/dl (70-99)
[2025-04-25] MEDS: NOVOLOG FLEXPEN-LOW RESISTANCE 1 UNITS SC ×4 (05:09→23:05)
[2025-04-25 06:00] VITALS: BMI 21.5
[2025-04-25 07:32] VITALS: BP 217/99
[2025-04-25] MEDS: PACERONE 200 MG TUBE (08:01)
[2025-04-25] MEDS: ROBITUSSIN 200 MG TUBE ×4 (08:01→21:03)
[2025-04-25] MEDS: NSS (PRESERVATIVE FREE) IV (08:01)
[2025-04-25 09:46] LABS: Hematocrit 30.1 % (37.0-47.0); Hemoglobin 10.1 g/dL (12.0-16.0); Mean Corp Hgb Conc. 33.6 g/dL (33.0-37.0); Mean Corpuscular Volume 85.3 fL (81.0-99.0); Platelet Count 86 10^3/uL (130-400); Red Cell Dist. Width 16.9 % (11.5-14.5)
[2025-04-25 09:53] LABS: ALT (SGPT) 117 U/L (0-35); AST (SGOT) 105 U/L (14-36); Albumin 2.3 g/dl (3.5-5.0); Alkaline Phosphatase 470 U/L (38-126); Calcium 7.9 mg/dl (8.4-10.2); Carbon Dioxide 26 mmol/L (22-30); Chloride 108 mmol/L (98-107); Estimated Creatinine Clearance 32 ml/min; Glucose 148 mg/dl (70-99); Potassium 4.4 mmol/L (3.5-5.1); Sodium 137 mmol/L (135-145); Total Protein 4.7 g/dl (6.3-8.2); eGFR > 60.00
[2025-04-25 10:05] LABS: Blood Urea Nitrogen 23 mg/dl (7-17)
[2025-04-25 11:15] VITALS: BP 223/100
[2025-04-25 11:28] LABS: Nucleated Red Blood Cells % 0 %
--- NOTE | 2025-04-25 11:36 | W.PN.HOSP.TC ---
Addendum entered and electronically signed by Alex Foreman MD 04/25/25 12:42:
Updated granddaughter over the phone in details but explained once again patient remains with poor prognosis with severe dysphagia and unable to tolerate p.o. intake. Will continue with tube feeding. Recommended hospice family refused once again.
Family to visit tomorrow. Will discuss further. Family wants to continue with aggressive measures including full code.
Original Note:
Today's Communication/Plan
-
Continue with IV antibiotic
Hemoglobin & platelets improving
Dysphagia remains n.p.o.-continue with tube feeding
Diuresis per nephrology
Prognosis remains guarded
Assessment / Plan
Assessment / Plan
Gen- awake, confused
HEENT-NC, AT, anicteric, clear oral mm, Dobhoff tube noted
Neck-supple
CV-reg, no M, +S1/S2
Lungs-rhonch b/l
Abd-soft, NT, ND
Ext-no edema
Musculoskeletal-no cyanosis, left clubfoot, edema B/U UE, thighs
Skin-warm and dry
Neuro-awake,
#Acute toxic metabolic encephalopathy -most likely multifactorial etiology including hypoglycemia, hypotension, severe metabolic acidosis, NALINI, etc.
CT head on admission shows no acute abnormality. No hemorrhage. 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 Baseline cognition unknown.
Off Precedex drip
Monitor mentation post extubation
#Acute hypoxic respiratory failure
Status post intubated and mechanical ventilation on admission
s/p extubation
Chest ultrasound with right-sided pleural effusion. iRad for thoracentesis. Fluid studies ordered.
Bronchodilators.
wean o2 as tolerated. currently on room air
#Shock likely septic ESBL UTI and MRSA pneumonia
off pressors
Did receive IV albumin as ordered by nephrology.
Blood cultures negative so far, urine culture w/ESBL
Urinalysis does show pyuria.
Sputum sample with MRSA/Yeast
Cont Ertapenem and Vancomycin.
ID on board
#NALINI -likely due to shock, hypotension, ATN, hypovolemia, etc.
#Anasarca
Status post hemodialysis.
Cr stabilized. Lactic acidosis resolved.
Defer diuresis to nephrology
Diuresis per nephrology
#Acute anemia
presentation with hemoglobin 10.6,
Hgb at 6.5. s/p 1u of PRBC so far.
No hematuria or luminal bleeding noted
FOBT pending
In the setting of anemia and blood transfusion requirement hold Eliquis
Hemoglobin stabilizing and uptrending.
#Acute thrombocytopenia
Possibly due to critical illness, shock, antibiotics inflammatory state etc . Unlikely to be HIT. Doubt TTP as her platelet count on presentation was normal.
Platelets are stable oxygen now uptrending
low probability with 4T score. Will check HIT panel. Hold heparin. Can hold off on starting anticoagulation.
hematology input-Platetlets associated Ab pending
#Urinary retention status post Rocha catheter removal
Continue bladder scan protocol.
Out of bed with activity should help
#Dysphagia
Speech recommending n.p.o.
Continue with tube feeding
#Bilateral superficial thrombosis
can place Midline superior to clot.
#Acute ischemic hepatitis -elevated transaminases, likely due to the shock.
Alk phos elevated seems to be plateauing
Hepatitis panel negative
#High AG metabolic acidosis -presentation with shock, lactic acidosis, NALINI.
Unclear if patient with type B lactic acidosis. resolved.
#Hypothermia -resolved.
TSH 31, free T4 normal at 1.3. 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
Empirically started on IV levothyroxine and now transition to p.o.
Random cortisol more than adequate, 46.2.
Transition patient to 50 mcg p.o. Synthroid.
#Atrial fibrillation, unknown type
restarted on amiodarone
Admission EKG with sinus rhythm and first-degree AV block.
Nonspecific intraventricular conduction block.
ECHO 04/20/25- LV ejection fraction is 55-60%. No regional wall motion abnormalities are seen. Normal right ventricular size and function. Mild to moderate mitral regurgitation. Aortic sclerosis without stenosis. Mild aortic regurgitation.
Hypernatremia -resolved.
Hyperkalemia -resolved.
Hypomagnesemia -monitor.
Hyperphosphatemia -resolved. Now hypophosphatemic.
Hypocalcemia status post repletion
DM2 with hypoglycemia/hyperglycemia -presentation with glucose 45, reportedly glucose in the 20s at home. Metformin listed as the only diabetes medication.
Required insulin IV infusion on 04/18, glucoses subsequently improved and did have hypoglycemia. Currently off IV insulin.
Hemoglobin A1c 5.7%.
Full code
DVT ppx-SCDs in setting of thrombocytopenia.
Discussed with patient granddaughter and daughter at bedside in details on 04/24/25. Hospice was discussed but family refused.
okay to draw bloodwork from foot.
Anticipated Discharge: > 48 hours
Subjective/Interval History
-
Date of Service: April 25, 2025
Wound center feeding
Off oxygen
Remains afebrile
Objective Data
-
Labs:
Laboratory Results
04/25/25
07:54
WBC 3.1 L
Hgb 10.1 L
Hct 30.1 L
Plt Count 86 L D
Sodium 137
Potassium 4.4 D
Chloride 108 H
Carbon Dioxide 26
BUN 23 H
Creatinine 0.9
Glucose 148 H
Calcium 7.9 L
Total Bilirubin 0.4
AST 105 H
ALT 117 H
Alkaline Phosphatase 470 H
Vital Signs:
Vital Signs
Temp Pulse Resp BP Pulse Ox
97.9 F 109 16 223/100 97
04/25/25 11:15 04/25/25 11:15 04/25/25 11:15 04/25/25 11:15 04/25/25 11:15
I&O
04/24/25 04/25/25 04/26/25
06:59 06:59 06:59
Intake Total 755 / 755 2440 / 2440
Output Total 1480 / 1480 3400 / 3400
Balance -725 / -725 -960 / -960
[2025-04-25 11:38] LABS: Glucose - Point of Care 178 mg/dl (70-99)
--- NOTE | 2025-04-25 11:57 | W.PN.ID1 ---
Date of Service
Date of Service: April 25, 2025
Today's Communication
Continue antibiotics. See below�
Assessment / Plan
# MRSA PNA
- s/p acute hypoxemic respiratory failure, extubated 04/21/25
- Continue IV Vancomycin to complete 7 days through 04/25/25.
- Strict aspiration precaution
# MDR- ESBL-Klebsiella UTI
- Continue Ertapenem (d#8 effective abx). Continue through 04/27/25.
- Continue contact isolation.
# Worsening thrombocytopenia
-Possibly due to Zosyn -> dc'd 04/21.
- trend plt. Slightly improved today
# s/p septic shock with multisytem organ failure
# NALINI on CKD - resolving
Chief Complaint
-: Clinical Sepsis, Pneumonia and UTI
Subjective / Review of Systems
Review of Systems: No Fever
Vital Signs / Physical Exam
Vital Signs
Vital Signs
Temp Pulse Resp BP Pulse Ox
97.9 F 109 16 223/100 97
04/25/25 11:15 04/25/25 11:15 04/25/25 11:15 04/25/25 11:15 04/25/25 11:15
Physical Exam
Constitutional: Acutely Ill and Chronically Ill
Head: Other (Dobbhoff in place.)
Eyes: Sclera Anicteric
Cardiovascular: S1/S2; Negative S3/S4
Pulmonary: Rhonchi (Scattered), Coarse and Non Labored
Gastrointestinal: Soft, Non Distended, Decreased Bowel Sounds, No Rebound and No Guarding
Extremities: Edema; Negative Cyanosis or Erythema
Skin: Warm and Dry
Neurological: Awake
Psychological: Calm
Objective Data
Lab Data
Lab Results
04/25/25 07:54
04/25/25 07:54
PT 21.4 Sec (11.4-14.6) H 04/20/25 03:17
INR 1.83 04/20/25 03:17
APTT 65.9 Sec (23.4-35.0) H 04/19/25 20:11
Estimated Creat Clear 32 ml/min 04/25/25 07:54
Lactic Acid 1.5 mmol/L (0.7-2.0) 04/22/25 02:52
Total Bilirubin 0.4 mg/dl (0.2-1.3) 04/25/25 07:54
AST 105 U/L (14-36) H 04/25/25 07:54
ALT 117 U/L (0-35) H 04/25/25 07:54
Alkaline Phosphatase 470 U/L (38-126) H 04/25/25 07:54
Most recent labs reviewed.
Micro Results:
04/23/25 16:07 C. difficile GDH Antigen & Toxins - Final
Feces/Stool Negative for toxigenic C.difficile
04/19/25 16:32 Respiratory Culture - Final
Endotracheal Staph aureus MRSA
Yeast
Gram Stain - Final
04/17/25 20:39 Blood Culture - Final
Blood/Venous No Growth - Final Report
04/17/25 20:39 Blood Culture - Final
Blood/Venous No Growth - Final Report
04/17/25 20:21 Urine Culture - Final
Urine Klebsiella pneumoniae-ESBL
04/19/25 16:31 Legionella Urinary Antigen - Final
Urine Negative for Legionella pneumophila Serogroup 1 antigen.
A negative result does not rule out the possiblity of
Legionella infection due to other serogroups or species of
Legionella. Clinical correlation is recommended.
Streptococcus pneumoniae Antigen (M - Final
Negative for Streptococcus pneumoniae antigen.
A negative result does not exclude infection with
Streptococcus pneumoniae. Clinical correlation is
recommended.
Imaging:
04/22/25 CXR: Moderate right pleural effusion. Adjacent right lower lung parenchymal opacity is most likely atelectasis, although underlying pneumonia is also possible. Slight interval increase in increased opacity of the left lower hemithorax,
probably mainly from atelectasis. Underlying pneumonia is difficult to exclude. There may also be a small left pleural effusion.
04/19/25 CXR: Haziness of each hemidiaphragm, suggestive of bibasilar subsegmental atelectasis. Otherwise clear lungs.
04/17/25 CXR: Associated mild hypoinflation of the left lung and mild patchy opacity in the retrocardiac left lower lobe, likely atelectasis..
--- NOTE | 2025-04-25 12:35 | W.PN.NEPH.PH ---
Today's Communication / Plan
-
follow BMP
Assessment/Plan
-
84y F with PMH significant for A-Fib, HTN and DM-II who presents to ED for evaluation of confusion and N/V.
Severe azotemia and metabolic acidosis and hyperglycemic
Impression.
Acute on chronic kidney disease uncertain baseline
Diabetes with hypoglycemia
UTI= ESBL Klebsiella
Septic shock
A-fib stable
Acute metabolic acidosis/lactic acidosis on metformin.
Plan.
no dialysis needed
follow BMP
eventual voiding ttrial
will sign off
-
-
Date of Service: April 25, 2025
CC / HPI / ROS
-
Chief Complaint:
Septic shock
History of Present Illness:
Presents with altered mental status abnormal labs and septic shock requiring acute hemodialysis
Cr stable 0.9
K normal
LFTs slightly better
on TF with FWF 60ml/hr total
Review of Systems:
tracks with eyes,
does not follow commands
Labs
-
Labs:
WBC 3.1 10^3/uL (4.8-10.8) L 04/25/25 07:54
RBC 3.53 10^6/uL (4.20-5.40) L 04/25/25 07:54
Hgb 10.1 g/dL (12.0-16.0) L 04/25/25 07:54
Hct 30.1 % (37.0-47.0) L 04/25/25 07:54
Plt Count 86 10^3/uL (130-400) L D 04/25/25 07:54
Sodium 137 mmol/L (135-145) 04/25/25 07:54
Potassium 4.4 mmol/L (3.5-5.1) D 04/25/25 07:54
Chloride 108 mmol/L (98-107) H 04/25/25 07:54
Carbon Dioxide 26 mmol/L (22-30) 04/25/25 07:54
BUN 23 mg/dl (7-17) H 04/25/25 07:54
Creatinine 0.9 mg/dL (0.6-1.0) 04/25/25 07:54
eGFR > 60.00 04/25/25 07:54
Glucose 148 mg/dl (70-99) H 04/25/25 07:54
Calcium 7.9 mg/dl (8.4-10.2) L 04/25/25 07:54
Phosphorus 3.6 mg/dl (2.5-4.5) 04/24/25 12:33
Albumin 2.3 g/dl (3.5-5.0) L 04/25/25 07:54
Physical Exam
-
Vital Signs:
Vital Signs
Temp Pulse Resp BP Pulse Ox
97.9 F 109 16 223/100 97
04/25/25 11:15 04/25/25 11:15 04/25/25 11:15 04/25/25 11:15 04/25/25 11:15
Cardiovascular:: Regular rate and rhythm
Respiratory:: Bilateral: Coarse
Lung Excursion:: Normal
Abdomen:: Nontender and Soft
Bowel Sounds:: Normal
Extremity Edema:: None: Bilateral:
[2025-04-25] MEDS: INVANZ 55 MG IV (13:11)
--- NOTE | 2025-04-25 13:26 | PTCARENOTE ---
Patient continues to be nonverbal. Patient does track RN with eyes and arouses to verbal stimuli. Patients arms are elevated and continue to leak moderate amount of serous fluid. Frequent mouth care and suctioning completed. Patient with gurgley
voice.
--- NOTE | 2025-04-25 14:16 | CM ---
CM called to patient granddaughter to review plan for discharge. Per patient jayla her mother is the patient's primary caregiver and she would be coming in tomorrow to talk to the CM about discharge planning needs. PT pending assessment to
clarify discharge planning needs. CM will continue to follow for discharge planning needs.
Plan; pending PT assessment and discussion with granddaughter to clarify patient needs.
[2025-04-25 15:25] VITALS: BP 161/89
[2025-04-25 17:01] LABS: Glucose - Point of Care 171 mg/dl (70-99)
[2025-04-25 19:27] LABS: Platelet Antibody, Direct IgG Negative (Negative); Platelet Antibody, Direct IgM Positive (Negative)
[2025-04-25 20:21] VITALS: BP 144/86
[2025-04-25] MEDS: SENNA SYRUP TUBE (21:03)
[2025-04-25 22:53] VITALS: BP 163/73
[2025-04-25 23:06] LABS: Glucose - Point of Care 174 mg/dl (70-99)
[2025-04-26 03:23] VITALS: BP 154/86
[2025-04-26 05:35] LABS: Glucose - Point of Care 170 mg/dl (70-99)
[2025-04-26] MEDS: SYNTHROID 50 MCG PO (05:39)
[2025-04-26] MEDS: NOVOLOG FLEXPEN-LOW RESISTANCE 1 UNITS SC ×3 (05:40→23:20)
[2025-04-26 06:00] VITALS: BMI 21.9
[2025-04-26 07:13] LABS: Hematocrit 29.5 % (37.0-47.0); Hemoglobin 9.7 g/dL (12.0-16.0); Mean Corp Hgb Conc. 32.9 g/dL (33.0-37.0); Mean Corpuscular Volume 86.8 fL (81.0-99.0); Platelet Count 164 10^3/uL (130-400); Red Cell Dist. Width 16.7 % (11.5-14.5)
[2025-04-26 07:25] LABS: AST (SGOT) 229 U/L (14-36); Albumin 2.5 g/dl (3.5-5.0); Alkaline Phosphatase 479 U/L (38-126); Blood Urea Nitrogen 25 mg/dl (7-17); Carbon Dioxide 28 mmol/L (22-30); Chloride 109 mmol/L (98-107); Estimated Creatinine Clearance 32 ml/min; Glucose 154 mg/dl (70-99); Potassium 4.8 mmol/L (3.5-5.1); Sodium 136 mmol/L (135-145); Total Protein 4.9 g/dl (6.3-8.2); eGFR > 60.00
[2025-04-26 07:28] LABS: ALT (SGPT) 146 U/L (0-35); Calcium 8.3 mg/dl (8.4-10.2)
[2025-04-26 07:40] LABS: Glucose - Point of Care 180 mg/dl (70-99)
[2025-04-26 08:00] VITALS: BP 212/88
[2025-04-26] MEDS: PACERONE 200 MG TUBE (08:13)
[2025-04-26] MEDS: NSS (PRESERVATIVE FREE) IV (08:13)
[2025-04-26] MEDS: ROBITUSSIN 200 MG TUBE ×4 (08:13→21:19)
[2025-04-26 08:48] LABS: Nucleated Red Blood Cells % 0 %
[2025-04-26 11:29] VITALS: BP 198/91
[2025-04-26 11:45] LABS: Glucose - Point of Care 171 mg/dl (70-99)
--- NOTE | 2025-04-26 11:52 | W.PN.HOSP.TC ---
Addendum entered and electronically signed by Alex Foreman MD 04/26/25 13:53:
Updated patient daughter, granddaughter, and at bedside in details. Awaiting for repeat speech evaluation. Family understands that the patient continues to feel speech evaluation may need to consider feeding tube. Overall prognosis remains
guarded family would like to continue with current aggressive measures.
Original Note:
Today's Communication/Plan
-
Await repeat speech eval
Continue with reactive pending
CBC with hemoglobin platelets improving
Assessment / Plan
Assessment / Plan
Gen- awake, confused
HEENT-NC, AT, anicteric, clear oral mm, Dobhoff tube noted
Neck-supple
CV-reg, no M, +S1/S2
Lungs-rhonch b/l
Abd-soft, NT, ND
Ext-no edema
Musculoskeletal-no cyanosis, left clubfoot, edema B/U UE, thighs improvement
Skin-warm and dry
Neuro-awake,
#Acute toxic metabolic encephalopathy -most likely multifactorial etiology including hypoglycemia, hypotension, severe metabolic acidosis, ANLINI, etc.
CT head on admission shows no acute abnormality. No hemorrhage. 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 Baseline cognition unknown.
Off Precedex drip
Monitor mentation post extubation
#Acute hypoxic respiratory failure
Status post intubated and mechanical ventilation on admission
s/p extubation
Chest ultrasound with right-sided pleural effusion. iRad for thoracentesis. Fluid studies ordered.
Bronchodilators.
wean o2 as tolerated. currently on room air
#Shock likely septic ESBL UTI and MRSA pneumonia
off pressors
Did receive IV albumin as ordered by nephrology.
Blood cultures negative so far, urine culture w/ESBL
Urinalysis does show pyuria.
Sputum sample with MRSA/Yeast
Cont Ertapenem. Completed course of vancomycin.
ID on board
#NALINI -likely due to shock, hypotension, ATN, hypovolemia, etc.
#Anasarca
Status post hemodialysis.
Cr stabilized. Lactic acidosis resolved.
Defer diuresis to nephrology
Diuresis per nephrology
#Acute anemia
presentation with hemoglobin 10.6,
Hgb at 6.5. s/p 1u of PRBC so far.
No hematuria or luminal bleeding noted
FOBT pending
In the setting of anemia and blood transfusion requirement hold Eliquis
Hemoglobin stabilizing and uptrending.
#Acute thrombocytopenia
Possibly due to critical illness, shock, antibiotics inflammatory state etc . Unlikely to be HIT. Doubt TTP as her platelet count on presentation was normal.
Platelets are stable oxygen now uptrending
low probability with 4T score. Will check HIT panel. Hold heparin. Can hold off on starting anticoagulation.
Platelets are starting to stabilize. Platelets of 164K.
#Urinary retention status post Rocha catheter removal
Continue bladder scan protocol.
Out of bed with activity should help
#Dysphagia
Speech recommending n.p.o. continue to follow speech and swallow.
Continue with tube feeding
#Bilateral superficial thrombosis
can place Midline superior to clot.
#Acute ischemic hepatitis -elevated transaminases, likely due to the shock.
Alk phos elevated seems to be plateauing
Hepatitis panel negative
#High AG metabolic acidosis -presentation with shock, lactic acidosis, NALINI.
Unclear if patient with type B lactic acidosis. resolved.
#Hypothermia -resolved.
TSH 31, free T4 normal at 1.3. 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
Empirically started on IV levothyroxine and now transition to p.o.
Random cortisol more than adequate, 46.2.
Transition patient to 50 mcg p.o. Synthroid.
#Atrial fibrillation, unknown type
restarted on amiodarone
Admission EKG with sinus rhythm and first-degree AV block.
Nonspecific intraventricular conduction block.
ECHO 04/20/25- LV ejection fraction is 55-60%. No regional wall motion abnormalities are seen. Normal right ventricular size and function. Mild to moderate mitral regurgitation. Aortic sclerosis without stenosis. Mild aortic regurgitation.
Hypernatremia -resolved.
Hyperkalemia -resolved.
Hypomagnesemia -monitor.
Hyperphosphatemia -resolved. Now hypophosphatemic.
Hypocalcemia status post repletion
DM2 with hypoglycemia/hyperglycemia -presentation with glucose 45, reportedly glucose in the 20s at home. Metformin listed as the only diabetes medication.
Required insulin IV infusion on 04/18, glucoses subsequently improved and did have hypoglycemia. Currently off IV insulin.
Hemoglobin A1c 5.7%.
Full code
DVT ppx-SCDs in setting of thrombocytopenia.
Discussed with patient and grand daughter over the phone in details on 04/25/2025. They want to continue with aggressive management.
Anticipated Discharge: > 48 hours
Subjective/Interval History
-
Date of Service: April 26, 2025
Remains n.p.o.
Tolerating tube feeding
On room air
Objective Data
-
Labs:
Laboratory Results
04/26/25
06:37
WBC 3.0 L
Hgb 9.7 L
Hct 29.5 L
Plt Count 164 D
Sodium 136
Potassium 4.8
Chloride 109 H
Carbon Dioxide 28
BUN 25 H
Creatinine 0.9
Glucose 154 H
Calcium 8.3 L
Total Bilirubin 0.5
AST 229 H
ALT 146 H
Alkaline Phosphatase 479 H
Vital Signs:
Vital Signs
Temp Pulse Resp BP Pulse Ox
98.2 F 99 21 198/91 97
04/26/25 11:29 04/26/25 11:29 04/26/25 11:29 04/26/25 11:29 04/26/25 11:29
I&O
04/25/25 04/26/25 04/27/25
06:59 06:59 06:59
Intake Total 2440 / 2440 1640 / 1640
Output Total 3400 / 3400 350 / 350
Balance -960 / -960 1290 / 1290
[2025-04-26] MEDS: INVANZ 55 MG IV (13:45)
[2025-04-26 15:56] VITALS: BP 176/97
[2025-04-26 17:51] LABS: Glucose - Point of Care 137 mg/dl (70-99)
[2025-04-26] MEDS: NOVOLOG FLEXPEN-LOW RESISTANCE SC (18:23)
[2025-04-26 19:35] VITALS: BP 167/84
[2025-04-26] MEDS: SENNA SYRUP TUBE (21:15)
[2025-04-26 23:16] LABS: Glucose - Point of Care 161 mg/dl (70-99)
[2025-04-26 23:36] VITALS: BP 155/94
--- NOTE | 2025-04-26 23:46 | PTCARENOTE ---
New Rocha catheter inserted per FINANCE ASSISTANT. 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
[2025-04-27] VITALS (7 sets, daily range): BP systolic 87–164; BP diastolic 62–106; BMI 21.2
[2025-04-27 05:23] LABS: Glucose - Point of Care 147 mg/dl (70-99)
[2025-04-27] MEDS: SYNTHROID 50 MCG PO (05:23)
[2025-04-27] MEDS: NOVOLOG FLEXPEN-LOW RESISTANCE SC (05:24)
--- NOTE | 2025-04-27 07:43 | PN.DE.MGMTRT ---
Insulin Management
- -
04/27/25: Diabetes Management Follow up
Patient found unresponsive at home brought ED 04/17. PMH: Significant for A-Fib, HTN and T2DM. Pt was noted hypotension for EMS with BP in the 80s/50s and hypoglycemia with blood sugar of 35. Treated with dextrose and glucose improved to 147, however
she remained unresponsive/obtunded and was intubated in the ER. She was noted for severe azotemia and metabolic acidosis and hypoglycemia upon arrival to the ED. Her glucose was reportedly in the 20s earlier at home. Metformin is the only diabetes
medication listed. Hemoglobin A1C 5.7%, Cr 0.8, eGFR > 60.
Glucoses subsequently improved and pt developed hyperglycemia, requiring insulin infusion, critical care glycemic protocol was briefly started on 04/18 for 4 hrs.
Pt off the floor at time of my visit, unable to interview, no family at bedside.
Remains NPO, has been on Tube feeds at 45 cc/hr, currently off for IR procedure-Thoracentesis today.
Glucose range 137 to 180 with low corrective insulin only.
Will cont to follow and adjust/restart insulin dose if necessary.
Patient A1C of 5.7% much too low for age and comorbidities. Will not restart metformin.
Discussed with Nurse.
Diabetes History
- -
Type of Diabetes: 2
Pre-Admission Diabetes Regimen
Lab Results
Hemoglobin A1c 5.7 % (4.0-5.6) H 04/18/25 04:15
Insulin Pump Settings
IP Diabetes Regimen
04/26/25 04/26/25 04/26/25
11:44 17:50 23:15
POC Glucose 171 H 137 H 161 H
04/27/25
05:22
POC Glucose 147 H
Amount consumed: 0
Patient Education
[2025-04-27] MEDS: NSS (PRESERVATIVE FREE) IV (08:14)
[2025-04-27] MEDS: PACERONE 200 MG TUBE (08:14)
[2025-04-27] MEDS: ROBITUSSIN 200 MG TUBE ×2 (08:15→12:03)
[2025-04-27 08:56] LABS: Glucose - Point of Care 43 mg/dl (70-99)
--- NOTE | 2025-04-27 09:00 | PTOTSP ---
Speech Language Pathology
Pt seen for dysphagia tx. Attempted P.O. trials of thin liquids via straw. Pt unable to generate adequate suction. Provided via pipetted straw, and pt actively accepted with swallow initiated. Slight change in breath quality. Then able to take
sip from straw with similar result. Also provided 1/2 tsp of puree with oral holding. Provided another 1/2 tsp to increase volume to attempt to improve oral awareness. Pt able to initiate swallow, although this was delayed. Similar change in
breath quality noted. No overt coughing, but high risk for aspiration. Pt then pushing REINFORCING BAR SETTER's hand away.
Some improvement noted this date in swallow initiation, although significantly delayed. Can consider VSE to see if any P.O. intake safe for pt at this point, although suspect intake will be limited even if diet initiated and adequate
nutrition/hydration would be a consistent concern. Spoke with MD. Plan for thoracentesis today, will plan for VSE tomorrow 04/28 to aid in decision making.
Recommend:
(1) Strict NPO
(2) Oral care 4x/day with suctioning as needed
(3) Non-oral meds
(4) Not appropriate for Aspiration Risk Hydration Protocol (ARHP)
(5) VSE 04/28
(6) REINFORCING BAR SETTER to continue to follow
[2025-04-27 09:54] LABS: Hematocrit 26.7 % (37.0-47.0); Hemoglobin 9.1 g/dL (12.0-16.0); Mean Corp Hgb Conc. 34.1 g/dL (33.0-37.0); Mean Corpuscular Volume 84.5 fL (81.0-99.0); Platelet Count 197 10^3/uL (130-400); Red Cell Dist. Width 16.5 % (11.5-14.5)
[2025-04-27 09:58] LABS: ALT (SGPT) 133 U/L (0-35); AST (SGOT) 154 U/L (14-36); Albumin 2.6 g/dl (3.5-5.0); Alkaline Phosphatase 396 U/L (38-126); Blood Urea Nitrogen 25 mg/dl (7-17); Calcium 8.3 mg/dl (8.4-10.2); Carbon Dioxide 23 mmol/L (22-30); Chloride 110 mmol/L (98-107); Estimated Creatinine Clearance 32 ml/min; Glucose 137 mg/dl (70-99); Potassium 4.9 mmol/L (3.5-5.1); Sodium 136 mmol/L (135-145); Total Protein 5.0 g/dl (6.3-8.2); eGFR > 60.00
[2025-04-27 10:16] LABS: Nucleated Red Blood Cells % 0 %
--- NOTE | 2025-04-27 10:35 | W.PN.ONC2 ---
Today's Communication / Plan
-
repeat DIC panel, suspect normalization of fibrinogen
plan for repeat speech eval noted
daily CBC
check iron studies, B12, folate, retic
symptoms support for b/l UE superficial thrombus
Impression
Impression
ESBL UTI and MRSA pneumonia on abx
septic shock with MOF
TME multifactorial including infection, hypoglycemia, hypotension, and severe metabolic acidosis
acute respiratory failure 2/2 PNA, pleural effusion s/p extubation, s/p thora 04/23 -now on room air
NALINI -resolved
transaminitis -acute hepatitis panel negative -likely shock liver
Atrial fibrillation
leukopenia/lymphopenia
Acute thrombocytopenia with suspected component of DIC with low fibrinogen. direct platelet antibody IgG negative, IgM positive -thrombocytopenia resolved.
Anemia -Hgb stable 9.1g/dL s/p 1U prbc 04/22
dysphagia
superficial thrombus right and left cephalic vein
Plan
Plan
abx per ID
nephrology recommendations noted
f/u thora cytology
symptoms support superficial thrombus right and left cephalic vein with pain management, compression, elevation and consider VTE ppx when able
Subjective/Objective
Subjective
normotensive, no hypotension, or hypoxia
unwilling or unable to answer questions or follow simple commands
Vital Signs:
Vital Signs
Temp Pulse Resp BP Pulse Ox
98.2 F 87 15 160/92 98
04/27/25 07:55 04/27/25 07:55 04/27/25 07:55 04/27/25 07:55 04/27/25 07:55
Lab Results:
Laboratory Data
WBC 3.5 10^3/uL (4.8-10.8) L 04/27/25 09:28
Hgb 9.1 g/dL (12.0-16.0) L 04/27/25 09:28
Plt Count 197 10^3/uL (130-400) D 04/27/25 09:28
PT 21.4 Sec (11.4-14.6) H 04/20/25 03:17
INR 1.83 04/20/25 03:17
APTT 65.9 Sec (23.4-35.0) H 04/19/25 20:11
eGFR > 60.00 04/27/25 09:28
Physical Exam
right cheek dressing CDI, L bar dressing CDI
HEENT: Moist Mucous Membranes and Other (dobhoff); No Jaundice
Pulmonary: Clear and Other (diminished b/l bases)
GI: Soft
Extremities: Pulses Present
--- NOTE | 2025-04-27 10:51 | W.PN.HOSP.TC ---
Addendum entered and electronically signed by Alex Foreman MD 04/27/25 11:52:
updated granddaughter over the phone in details.
Addendum entered and electronically signed by Alex Foreman MD 04/27/25 11:32:
called granddaughter to update. No response. Left VM.
Original Note:
Today's Communication/Plan
-
iRad for thora
IV abx
VSE in am
Platelets stabilized
PT/OT
Assessment / Plan
Assessment / Plan
Gen- awake, confused
HEENT-NC, AT, anicteric, clear oral mm, Dobhoff tube noted
Neck-supple
CV-reg, no M, +S1/S2
Lungs-rhonch b/l
Abd-soft, NT, ND
Ext-no edema
Musculoskeletal-no cyanosis, left clubfoot, edema B/U UE, thighs improvement
Skin-warm and dry
Neuro-awake,
#Acute toxic metabolic encephalopathy -most likely multifactorial etiology including hypoglycemia, hypotension, severe metabolic acidosis, NALINI, etc.
CT head on admission shows no acute abnormality. No hemorrhage. 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 Baseline cognition unknown.
Off Precedex drip
Monitor mentation post extubation
#Acute hypoxic respiratory failure
Status post intubated and mechanical ventilation on admission
s/p extubation
Chest ultrasound with right-sided pleural effusion. iRad for thoracentesis. Fluid studies ordered.
Bronchodilators.
wean o2 as tolerated. currently on room air
#Shock likely septic ESBL UTI and MRSA pneumonia
off pressors
Did receive IV albumin as ordered by nephrology.
Blood cultures negative so far, urine culture w/ESBL
Urinalysis does show pyuria.
Sputum sample with MRSA/Yeast
Cont Ertapenem day 04/27 per ID. Completed course of vancomycin.
ID on board
#NALINI -likely due to shock, hypotension, ATN, hypovolemia, etc.
#Anasarca
Status post hemodialysis.
Cr stabilized. Lactic acidosis resolved.
Defer diuresis to nephrology
Diuresis per nephrology
#Acute anemia
presentation with hemoglobin 10.6,
Hgb at 6.5. s/p 1u of PRBC so far.
No hematuria or luminal bleeding noted
FOBT pending
In the setting of anemia and blood transfusion requirement hold Eliquis
Hemoglobin stabilizing and uptrending.
#Acute thrombocytopenia
Possibly due to critical illness, shock, antibiotics inflammatory state etc . Unlikely to be HIT. Doubt TTP as her platelet count on presentation was normal.
Platelets are stable oxygen now uptrending
low probability with 4T score. Will check HIT panel. Hold heparin. Can hold off on starting anticoagulation.
Platelets are starting to stabilize. Platelets of 164K.
#Urinary retention status post Rocha catheter removal
Continue bladder scan protocol.
Out of bed with activity should help
#Dysphagia
Speech recommending n.p.o. continue to follow speech and swallow. VSE recs. Ordered.
Continue with tube feeding
If fails will need PEG tube -holding eliquis
#Bilateral superficial thrombosis
can place Midline superior to clot.
#Acute ischemic hepatitis -elevated transaminases, likely due to the shock.
Alk phos elevated seems to be plateauing
Hepatitis panel negative
#High AG metabolic acidosis -presentation with shock, lactic acidosis, NALINI.
Unclear if patient with type B lactic acidosis. resolved.
#Hypothermia -resolved.
TSH 31, free T4 normal at 1.3. 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
Empirically started on IV levothyroxine and now transition to p.o.
Random cortisol more than adequate, 46.2.
Transition patient to 50 mcg p.o. Synthroid.
Repeat TSH w/FT4 in the morning.
#Atrial fibrillation, unknown type
restarted on amiodarone
Admission EKG with sinus rhythm and first-degree AV block.
Nonspecific intraventricular conduction block.
ECHO 04/20/25- LV ejection fraction is 55-60%. No regional wall motion abnormalities are seen. Normal right ventricular size and function. Mild to moderate mitral regurgitation. Aortic sclerosis without stenosis. Mild aortic regurgitation.
Hypernatremia -resolved.
Hyperkalemia -resolved.
Hypomagnesemia -monitor.
Hyperphosphatemia -resolved. Now hypophosphatemic.
Hypocalcemia status post repletion
DM2 with hypoglycemia/hyperglycemia -presentation with glucose 45, reportedly glucose in the 20s at home. Metformin listed as the only diabetes medication.
Required insulin IV infusion on 04/18, glucoses subsequently improved and did have hypoglycemia. Currently off IV insulin.
Hemoglobin A1c 5.7%.
Full code
DVT ppx-SCDs in setting of thrombocytopenia.
Discussed with patient and grand daughter at bedside in details on 04/26/2025. They want to continue with aggressive management.
Anticipated Discharge: > 48 hours
Subjective/Interval History
-
Date of Service: April 27, 2025
remains on room air
seen by speech earlier-better but risk of aspiration remains
Objective Data
-
Labs:
Laboratory Results
04/27/25
09:28
WBC 3.5 L
Hgb 9.1 L
Hct 26.7 L
Plt Count 197 D
Sodium 136
Potassium 4.9
Chloride 110 H
Carbon Dioxide 23
BUN 25 H
Creatinine 0.9
Glucose 137 H
Calcium 8.3 L
Total Bilirubin 0.5
AST 154 H
ALT 133 H
Alkaline Phosphatase 396 H
Vital Signs:
Vital Signs
Temp Pulse Resp BP Pulse Ox
98.2 F 87 15 160/92 98
04/27/25 07:55 04/27/25 07:55 04/27/25 07:55 04/27/25 07:55 04/27/25 07:55
I&O
04/26/25 04/27/25 04/28/25
06:59 06:59 06:59
Intake Total 1640 / 1640 2210 / 2210
Output Total 350 / 350 850 / 850
Balance 1290 / 1290 1360 / 1360
[2025-04-27 12:15] LABS: Glucose - Point of Care 172 mg/dl (70-99)
[2025-04-27] MEDS: NOVOLOG FLEXPEN-LOW RESISTANCE 1 UNITS SC ×2 (12:15→17:33)
[2025-04-27 14:41] LABS: Reticulocyte Count 1.4 % (0.4-2.8)
[2025-04-27 15:15] LABS: Ferritin 614.0 ng/ml (11.1-264.0)
[2025-04-27] MEDS: INVANZ 55 MG IV (15:29)
[2025-04-27 15:47] LABS: Folate 3.6 ng/ml (2.76-20); Vitamin B12 829 pg/ml (239-931)
[2025-04-27 17:34] LABS: Glucose - Point of Care 161 mg/dl (70-99)
--- NOTE | 2025-04-27 17:49 | PTCARENOTE ---
Pt noted to have pulled out her dobbhoff feeding tube around 1730 this shift. signal repairer GI doc and hospitalist notified, awaiting new orders at this time. Plan of care ongoing.
[2025-04-27] MEDS: ROBITUSSIN TUBE ×2 (17:51→22:13)
[2025-04-27] MEDS: SENNA SYRUP TUBE (22:13)
[2025-04-27 23:54] LABS: Glucose - Point of Care 95 mg/dl (70-99)
[2025-04-28] MEDS: NOVOLOG FLEXPEN-LOW RESISTANCE SC ×4 (00:22→16:58)
[2025-04-28 03:02] VITALS: BP 158/79
[2025-04-28 04:32] LABS: Hematocrit 28.8 % (37.0-47.0); Hemoglobin 9.4 g/dL (12.0-16.0); Mean Corp Hgb Conc. 32.6 g/dL (33.0-37.0); Mean Corpuscular Volume 87.5 fL (81.0-99.0); Platelet Count 284 10^3/uL (130-400); Red Cell Dist. Width 16.5 % (11.5-14.5)
[2025-04-28 05:10] LABS: ALT (SGPT) 119 U/L (0-35); AST (SGOT) 101 U/L (14-36); Albumin 2.6 g/dl (3.5-5.0); Alkaline Phosphatase 351 U/L (38-126); Blood Urea Nitrogen 22 mg/dl (7-17); Calcium 8.2 mg/dl (8.4-10.2); Carbon Dioxide 25 mmol/L (22-30); Chloride 107 mmol/L (98-107); Estimated Creatinine Clearance 32 ml/min; Glucose 91 mg/dl (70-99); Potassium 4.3 mmol/L (3.5-5.1); Sodium 138 mmol/L (135-145); Total Protein 5.1 g/dl (6.3-8.2); eGFR > 60.00
[2025-04-28 05:18] LABS: APTT 33.7 Sec (23.4-35.0); Fibrinogen 455 MG/DL (199-459); INR 0.96; PT 13.1 Sec (11.4-14.6)
[2025-04-28 05:21] LABS: D-Dimer 3.61 ug/mlFEU (0.00-0.50)
[2025-04-28] MEDS: SYNTHROID PO (05:26)
[2025-04-28 05:43] VITALS: BMI 20.5
[2025-04-28 06:01] LABS: Nucleated Red Blood Cells % 0 %
[2025-04-28 06:13] LABS: Glucose - Point of Care 86 mg/dl (70-99)
--- NOTE | 2025-04-28 07:32 | PN.DE.MGMTRT ---
Addendum entered and electronically signed by Irais Negrete NP 04/28/25 12:13:
*Patient removed feeding tube last evening, no tube feeds at this time.
Original Note:
Insulin Management
- -
04/28/25: Diabetes Management Follow up
Patient found unresponsive at home brought ED 04/17. PMH: Significant for A-Fib, HTN and T2DM. Pt was noted hypotension for EMS with BP in the 80s/50s and hypoglycemia with blood sugar of 35. Treated with dextrose and glucose improved to 147, however
she remained unresponsive/obtunded and was intubated in the ER. She was noted for severe azotemia and metabolic acidosis and hypoglycemia upon arrival to the ED. Her glucose was reportedly in the 20s earlier at home. Metformin is the only diabetes
medication listed. Hemoglobin A1C 5.7%, Cr 0.8, eGFR > 60.
Glucoses subsequently improved and pt developed hyperglycemia, requiring insulin infusion, critical care glycemic protocol was briefly started on 04/18 for 4 hrs.
Patient is off the unit for swallowing study, no family at bedside.
Remains NPO, has been on Tube feeds at 45 cc/hr.
s/p thoracentesis 04/27.
Glucose range 95 to 172 with low corrective insulin only.
Will cont to follow and adjust/restart insulin dose if necessary.
Patient A1C of 5.7% much too low for age and comorbidities. Will not restart metformin.
Discussed with Nurse.
Diabetes History
- -
Type of Diabetes: 2
Pre-Admission Diabetes Regimen
04/27/25 04/28/25
09: 04:13
Creatinine 0.9 0.9
Lab Results
Hemoglobin A1c 5.7 % (4.0-5.6) H 04/18/25 04:15
Insulin Pump Settings
IP Diabetes Regimen
04/19/25 04/27/25 04/27/25
00:51 09: 12:13
Glucose 137 H
POC Glucose 43 L* 172 H
04/27/25 04/27/25 04/28/25
17:32 23:53 04:13
Glucose 91
POC Glucose 161 H 95
04/28/25
06:11
Glucose
POC Glucose 86
Patient Education
[2025-04-28 07:51] VITALS: BP 159/102
[2025-04-28] MEDS: NSS (PRESERVATIVE FREE) IV (08:31)
[2025-04-28] MEDS: ROBITUSSIN TUBE (09:38)
--- NOTE | 2025-04-28 10:30 | PTOTSP ---
Speech Language Pathology
VIDEOFLUOROSCOPIC SWALLOWING EXAMINATION (VSE) completed. Pt with mod-severe oral and mild pharyngeal dysphagia. No attempts to swallow puree noted. Swallowed liquids with only trace transient supraglottic penetration x1 and no aspiration. Trace
to mild pharyngeal residue.
Spoke with family, including granddaughter, in room following study on results/recommendations and plan moving forward. Repeat VSE will not be necessary, as issue mostly oral, which can be addressed bedside. Pt has dentures at home and asked
family to bring them in.
Recommend:
(1) Thin liquids only (no solids)
(2) Aspiration precautions: sit upright, feed only when alert, full assist, liquids via straw
(3) Cognition is main barrier to oral meds. Can trial 1 at a time whole with liquid, but if this is not successful, may need to provide IV. Puree is not an option at this time
(4) TRANSPORTATION AID to continue to follow
[2025-04-28 11:40] VITALS: BP 181/96
[2025-04-28 12:33] LABS: Glucose - Point of Care 99 mg/dl (70-99)
[2025-04-28] MEDS: PACERONE 200 MG TUBE (13:22)
[2025-04-28] MEDS: ROBITUSSIN 200 MG TUBE (13:25)
--- NOTE | 2025-04-28 14:15 | W.PN.ONC2 ---
Today's Communication / Plan
-
repeat CBC with PCP outpatient for continued surveillence after discharge. If anemia persists, refer to hematology outpatient for further evaluation
no further inpatient recommendations, hematology will sign off
Impression
Impression
ESBL UTI and MRSA pneumonia on abx
septic shock with MOF
TME multifactorial including infection, hypoglycemia, hypotension, and severe metabolic acidosis
acute respiratory failure 2/2 PNA, pleural effusion s/p extubation, s/p thora 04/23 -now on room air
NALINI -resolved
transaminitis -acute hepatitis panel negative -likely shock liver
Atrial fibrillation
leukopenia/lymphopenia
Acute thrombocytopenia with suspected component of DIC with low fibrinogen. direct platelet antibody IgG negative, IgM positive -thrombocytopenia and hypofibrinogenemia resolved.
Anemia -Hgb stable ~9g/dL s/p 1U prbc 04/22. No B12 or folate deficiency. ferritin c/w AOCD
dysphagia
superficial thrombus right and left cephalic vein
Plan
Plan
abx per ID
nephrology recommendations noted
symptoms support superficial thrombus right and left cephalic vein with pain management, compression, elevation and consider VTE ppx when able
Subjective/Objective
Subjective
unwilling or unable to answer questions or follow commands
appears comfortable
Vital Signs:
Vital Signs
Temp Pulse Resp BP Pulse Ox
97.5 F 83 17 181/96 98
04/28/25 11:40 04/28/25 11:40 04/28/25 11:40 04/28/25 11:40 04/28/25 11:40
Lab Results:
Laboratory Data
WBC 4.2 10^3/uL (4.8-10.8) L 04/28/25 04:13
Hgb 9.4 g/dL (12.0-16.0) L 04/28/25 04:13
Plt Count 284 10^3/uL (130-400) D 04/28/25 04:13
PT 13.1 Sec (11.4-14.6) 04/28/25 04:13
INR 0.96 04/28/25 04:13
APTT 33.7 Sec (23.4-35.0) 04/28/25 04:13
eGFR > 60.00 04/28/25 04:13
Physical Exam
HEENT: No Jaundice
Pulmonary: Other (unlabored)
GI: Soft
Orders
Orders
Orders From Last 24 Hours
04/28/25 04:13
D-Dimer IN AM
Fibrinogen IN AM
PT/INR [Prothrombin Time] IN AM
PTT IN AM
[2025-04-28] MEDS: APRESOLINE 5 MG IV ×2 (14:40→15:49)
--- NOTE | 2025-04-28 14:45 | W.PN.HOSP.TC ---
Today's Communication/Plan
-
Start on clear liquid diet
Resume Eliquis
Advance diet as tolerated per speech therapy
PT OT eval
DC planning
Assessment / Plan
Assessment / Plan
#Acute toxic metabolic encephalopathy -most likely multifactorial etiology including hypoglycemia, hypotension, severe metabolic acidosis, NALINI, etc.
CT head on admission shows no acute abnormality. No hemorrhage. 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 Baseline cognition unknown.
Off Precedex drip
Now calmer and follows commands
#Acute hypoxic respiratory failure
Right-sided pleural effusion.
Status post intubated and mechanical ventilation on admission
s/p extubation
Chest ultrasound shows normal fluid on the right side to tap.
Bronchodilators.
currently on room air
#Shock likely septic ESBL UTI and MRSA pneumonia
off pressors
Did receive IV albumin as ordered by nephrology.
Blood cultures negative so far, urine culture w/ESBL
Urinalysis does show pyuria.
Sputum sample with MRSA/Yeast
Cont Ertapenem day 04/27 per ID. Completed course of vancomycin.
ID on board
#NALINI -likely due to shock, hypotension, ATN, hypovolemia, etc.
#Anasarca
Status post hemodialysis.
Cr stabilized. Lactic acidosis resolved.
Defer diuresis to nephrology
Diuresis per nephrology
#Acute anemia
presentation with hemoglobin 10.6,
Hgb at 6.5. s/p 1u of PRBC so far. H&H today 9.4
No hematuria or luminal bleeding noted
In the setting of anemia and blood transfusion requirement Eliquis kept on hold
Hemoglobin stabilizing and uptrending.
Restart Eliquis.
Follow for active bleeding
#Acute thrombocytopenia
Possibly due to critical illness, shock, antibiotics inflammatory state etc . Unlikely to be HIT. Doubt TTP as her platelet count on presentation was normal.
Platelets are stable oxygen now uptrending
low probability with 4T score. Will check HIT panel. Hold heparin. Can hold off on starting anticoagulation.
Platelets are starting to stabilize. Platelets of 164K.
#Urinary retention status post Rocha catheter removal
Continue bladder scan protocol.
Out of bed with activity should help
#Dysphagia
Pulled NG tube
S/P VSE 7/8 - cleared for clear liquids
#Bilateral superficial thrombosis
can place Midline superior to clot.
Heme input noted
#Acute ischemic hepatitis -elevated transaminases, likely due to the shock.
Alk phos elevated seems to be plateauing
Hepatitis panel negative
#High AG metabolic acidosis -presentation with shock, lactic acidosis, ANLINI.
Unclear if patient with type B lactic acidosis. resolved.
#Hypothermia -resolved.
TSH 31, free T4 normal at 1.3. 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
Empirically started on IV levothyroxine and now transition to p.o.
Random cortisol more than adequate, 46.2.
Transition patient to 50 mcg p.o. Synthroid.
Repeat TSH w/FT4 in the morning.
#Atrial fibrillation, unknown type
restarted on amiodarone
Admission EKG with sinus rhythm and first-degree AV block.
Nonspecific intraventricular conduction block.
ECHO 04/20/25- LV ejection fraction is 55-60%. No regional wall motion abnormalities are seen. Normal right ventricular size and function. Mild to moderate mitral regurgitation. Aortic sclerosis without stenosis. Mild aortic regurgitation.
Hypernatremia -resolved.
Hyperkalemia -resolved.
Hypomagnesemia -monitor.
Hyperphosphatemia -resolved. Now hypophosphatemic.
Hypocalcemia status post repletion
DM2 with hypoglycemia/hyperglycemia -presentation with glucose 45, reportedly glucose in the 20s at home. Metformin listed as the only diabetes medication.
Required insulin IV infusion on 04/18, glucoses subsequently improved and did have hypoglycemia. Currently off IV insulin.
Hemoglobin A1c 5.7%.
Full code
DVT ppx-SCDs in setting of thrombocytopenia.
Anticipated Discharge: 24 - 48 hours
Subjective/Interval History
-
Date of Service: April 28, 2025
Difficult historian due to language barrier
Pulled NG tube ;VSE completed today and now on clear liquids.
Tolerating meds per RN
Objective Data
-
Labs:
Laboratory Results
04/28/25
04:13
WBC 4.2 L
Hgb 9.4 L
Hct 28.8 L
Plt Count 284 D
PT 13.1
INR 0.96
APTT 33.7
Sodium 138
Potassium 4.3
Chloride 107
Carbon Dioxide 25
BUN 22 H
Creatinine 0.9
Glucose 91
Calcium 8.2 L
Total Bilirubin 0.6
AST 101 H
ALT 119 H
Alkaline Phosphatase 351 H
Vital Signs:
Vital Signs
Temp Pulse Resp BP Pulse Ox
97.5 F 83 17 181/98 98
04/28/25 11:40 04/28/25 11:40 04/28/25 11:40 04/28/25 14:40 04/28/25 11:40
I&O
04/27/25 04/28/25 04/29/25
06:59 06:59 06:59
Intake Total 2210 / 2210
Output Total 850 / 850 1150 / 1150
Balance 1360 / 1360 -1150 / -1150
Physical Exam
-
Respiratory: Rhonchi (due to transmitted upper airway sounds) and Non Labored Respirations; Negative Accessory Resp Muscle Use
Cardiac: Regular Rhythm and S1/S2
GI: Soft and Nontender
Neuro: Awake and Alert
Psych: Calm
Data Reviewed
-
Labs: Labs Reviewed by me
[2025-04-28 15:30] VITALS: BP 200/87
[2025-04-28 16:30] LABS: Glucose - Point of Care 95 mg/dl (70-99)
[2025-04-28] MEDS: ROBITUSSIN 200 MG PO ×2 (16:57→22:16)
[2025-04-28 19:49] VITALS: BP 149/85
[2025-04-28] MEDS: ELIQUIS 2.5 MG PO (20:10)
[2025-04-28] MEDS: SENNA SYRUP 8.8 MG TUBE (22:15)
[2025-04-28 23:06] VITALS: BP 143/92
[2025-04-28 23:45] LABS: Glucose - Point of Care 98 mg/dl (70-99)
[2025-04-29] MEDS: NOVOLOG FLEXPEN-LOW RESISTANCE SC ×3 (00:07→14:04)
[2025-04-29] MEDS: SYNTHROID 50 MCG PO (05:58)
[2025-04-29 06:00] VITALS: BMI 19.3
[2025-04-29 06:02] LABS: Glucose - Point of Care 77 mg/dl (70-99)
[2025-04-29 07:00] VITALS: BP 182/86
--- NOTE | 2025-04-29 07:42 | PN.DE.MGMTRT ---
Insulin Management
- -
04/29/25: Diabetes Management Follow up
Patient found unresponsive at home brought ED 04/17. PMH: Significant for A-Fib, HTN and T2DM. Pt was noted hypotension for EMS with BP in the 80s/50s and hypoglycemia with blood sugar of 35. Treated with dextrose and glucose improved to 147, however
she remained unresponsive/obtunded and was intubated in the ER. She was noted for severe azotemia and metabolic acidosis and hypoglycemia upon arrival to the ED. Her glucose was reportedly in the 20s earlier at home. Metformin is the only diabetes
medication listed. Hemoglobin A1C 5.7%, Cr 0.8, eGFR > 60.
Glucoses subsequently improved and pt developed hyperglycemia, requiring insulin infusion, critical care glycemic protocol was briefly started on 04/18 for 4 hrs.
Patient is awake, confused, no family at bedside.
s/p thoracentesis 04/27.
Removed Dobhoff tube 04/28, started clear liquids with dinner.
Glucose range 95 to 99, required no low corrective insulin.
04/29 Fasting glucose 77. Received no insulin or oral diabetes medications.
Will cont to follow.
Patient A1C of 5.7% much too low for age and comorbidities. Will not restart metformin.
Discussed with Nurse.
Diabetes History
- -
Type of Diabetes: 2
Pre-Admission Diabetes Regimen
Lab Results
Hemoglobin A1c 5.7 % (4.0-5.6) H 04/18/25 04:15
Insulin Pump Settings
IP Diabetes Regimen
04/28/25 04/28/25 04/28/25
12:32 16:29 23:43
POC Glucose 99 95 98
04/29/25
06:00
POC Glucose 77
Meal type: Dinner
Amount consumed: 5%
Patient Education
[2025-04-29 08:33] LABS: Hematocrit 27.7 % (37.0-47.0); Hemoglobin 9.0 g/dL (12.0-16.0); Mean Corp Hgb Conc. 32.5 g/dL (33.0-37.0); Mean Corpuscular Volume 88.2 fL (81.0-99.0); Platelet Count 355 10^3/uL (130-400); Red Cell Dist. Width 16.3 % (11.5-14.5)
[2025-04-29] MEDS: ROBITUSSIN 200 MG PO ×4 (08:56→22:57)
[2025-04-29] MEDS: ELIQUIS 2.5 MG PO ×2 (08:56→20:58)
[2025-04-29] MEDS: NSS (PRESERVATIVE FREE) IV (08:59)
[2025-04-29] MEDS: APRESOLINE 10 MG IV (08:59)
[2025-04-29] MEDS: PACERONE 200 MG PO (08:59)
[2025-04-29 13:35] LABS: Glucose - Point of Care 81 mg/dl (70-99)
--- NOTE | 2025-04-29 13:40 | WOUNDNOTE ---
R CHEEK, NOSE AND LIP
--- NOTE | 2025-04-29 13:41 | WOUNDNOTE ---
L MEDIAL LOWER LEG
--- NOTE | 2025-04-29 13:43 | WOUNDNOTE ---
WON RN NOTE: Followed up on patient today with assist of nurse Maoy. B/L heels with blanchable darker red loza, does not appear to be a DTI since blanchable. Silicone foams applied to heels and TruVue lite offloading heel boots placed back on.
Have been using offloading heel boots and foams since admission. R Cheek, nose and lip healed, dressing removed on cheek and left open to air. R arm less swollen, weeping serous of small amt. Ultra sorb pad under R arm and elevated. L medial arm
skin tear nearly healed, foam in use. L medial leg dressing changed, bleeds easily, skin still sloughing off. Sacrum with healing DTI, appears superficial as blistery dark skin sloughed off, revealing pink skin underneath with few areas of lorenzana,
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 Sacral dressing changed using Xeroform, alginate and silicone foam. Patient is on an air overlay mattress, easy to turn with assist, patient able to hold onto side rail. Repositioned to L semi side lying position with pillows
placed to offload sacrum. Will update wound care and assist as needed. Updated nurse Maria Esther, supplies at bedside.
--- NOTE | 2025-04-29 14:52 | W.PN.HOSP.TC ---
Today's Communication/Plan
-
Resume antihypertensives
Advance diet per speech
Assessment / Plan
Assessment / Plan
#Acute toxic metabolic encephalopathy -most likely multifactorial etiology including hypoglycemia, hypotension, severe metabolic acidosis, NALINI, etc.
CT head on admission shows no acute abnormality. No hemorrhage. 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 Baseline cognition unknown.
Off Precedex drip
Now calmer and follows commands
#Acute hypoxic respiratory failure
Right-sided pleural effusion.
Status post intubated and mechanical ventilation on admission
s/p extubation
Chest ultrasound shows normal fluid on the right side to tap.
Bronchodilators.
Remains on room air
#Shock likely septic ESBL UTI and MRSA pneumonia
off pressors
Did receive IV albumin as ordered by nephrology.
Blood cultures negative so far, urine culture w/ESBL
Urinalysis does show pyuria.
Sputum sample with MRSA/Yeast
Finished ertapenem course per ID. Completed course of vancomycin.
ID on board
#NALINI -likely due to shock, hypotension, ATN, hypovolemia, etc.
#Anasarca
Status post hemodialysis.
Cr stabilized. Lactic acidosis resolved.
Defer diuresis to nephrology
Diuresis per nephrology
#Acute anemia
presentation with hemoglobin 10.6,
Hgb at 6.5. s/p 1u of PRBC so far. H&H today 9.4
No hematuria or luminal bleeding noted
In the setting of anemia and blood transfusion requirement Eliquis kept on hold
Hemoglobin stabilizing and uptrending.
Restarted Eliquis.
Follow for active bleeding
#Acute thrombocytopenia
Possibly due to critical illness, shock, antibiotics inflammatory state etc . Unlikely to be HIT. Doubt TTP as her platelet count on presentation was normal.
Platelets are stable oxygen now uptrending
low probability with 4T score. Will check HIT panel. Hold heparin. Can hold off on starting anticoagulation.
Platelets are starting to stabilize. Platelets stable
#Urinary retention status post Rocha catheter removal
Continue bladder scan protocol.
Out of bed with activity should help
#Dysphagia
Pulled NG tube
S/P VSE 04/28 - cleared for clear liquids
cw SPT and advance diet as able
#Bilateral superficial thrombosis
can place Midline superior to clot.
Heme input noted
#Acute ischemic hepatitis -elevated transaminases, likely due to the shock.
Alk phos elevated seems to be plateauing
Hepatitis panel negative
#High AG metabolic acidosis -presentation with shock, lactic acidosis, NALINI.
Unclear if patient with type B lactic acidosis. resolved.
# Essential HTN -resume home meds of ACEI and BB
#Hypothermia -resolved.
TSH 31, free T4 normal at 1.3. 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
Empirically started on IV levothyroxine and now transition to p.o.
Random cortisol more than adequate, 46.2.
Transition patient to 50 mcg p.o. Synthroid.
Repeat TSH w/FT4 in the morning.
#Atrial fibrillation, unknown type
restarted on amiodarone
Admission EKG with sinus rhythm and first-degree AV block.
Nonspecific intraventricular conduction block.
ECHO 04/20/25- LV ejection fraction is 55-60%. No regional wall motion abnormalities are seen. Normal right ventricular size and function. Mild to moderate mitral regurgitation. Aortic sclerosis without stenosis. Mild aortic regurgitation.
Hypernatremia -resolved.
Hyperkalemia -resolved.
Hypomagnesemia -monitor.
Hyperphosphatemia -resolved. Now hypophosphatemic.
Hypocalcemia status post repletion
DM2 with hypoglycemia/hyperglycemia -presentation with glucose 45, reportedly glucose in the 20s at home. Metformin listed as the only diabetes medication.
Required insulin IV infusion on 04/18, glucoses subsequently improved and did have hypoglycemia. Currently off IV insulin.
Hemoglobin A1c 5.7%.
Full code
DVT ppx-SCDs in setting of thrombocytopenia.
Anticipated Discharge: 24 - 48 hours
Subjective/Interval History
-
Date of Service: April 29, 2025
No overnight events.
Difficult conversation due to language barrier
She says she is hungry today and would like to eat more solid diet. She is currently on clear liquids
Denies shortness of breath or pain
Objective Data
-
Labs:
Laboratory Results
04/29/25
06:04
WBC 4.7 L
Hgb 9.0 L
Hct 27.7 L
Plt Count 355 D
Vital Signs:
Vital Signs
Temp Pulse Resp BP Pulse Ox
97.3 F 86 16 182/88 97
04/29/25 07:00 04/29/25 08:59 04/29/25 07:00 04/29/25 08:59 04/29/25 08:56
I&O
04/28/25 04/29/25 04/30/25
06:59 06:59 06:59
Intake Total 120 / 120
Output Total 1150 / 1150 850 / 850
Balance -1150 / -1150 -730 / -730
Review of Systems
-
Unable to obtain full review of systems at this time due to: Language Barrier
Physical Exam
-
General: Comfortable
Respiratory: Clear to Auscultation (anteriorly) and Non Labored Respirations; Negative Accessory Resp Muscle Use
Cardiac: Regular Rhythm and S1/S2
GI: Soft and Nontender
Neuro: Awake and Alert
Psych: Calm
Data Reviewed
-
Labs: Labs Reviewed by me
[2025-04-29 15:00] VITALS: BP 163/76
[2025-04-29] MEDS: TOPROL XL 25 MG PO (15:18)
[2025-04-29] MEDS: ZESTRIL 40 MG PO (15:18)
--- NOTE | 2025-04-29 16:57 | PTCARENOTE ---
patient with language barrier. she has limited conversation. She was able to tell me she's hungry and wants coffee and requested napkin this am. attempted to use language IPAD with speech therapist, but patient had difficulty hearing what
certified court/medical interpreter was saying and I felt it didn't offer any better level of communication for nursing staff. turns with assist x2, vss, will continue to monitor.
[2025-04-29 18:17] LABS: Glucose - Point of Care 92 mg/dl (70-99)
[2025-04-29] MEDS: SENNA SYRUP 8.8 MG TUBE (22:58)
[2025-04-29 23:00] VITALS: BP 150/66
[2025-04-30 01:44] LABS: Glucose - Point of Care 75 mg/dl (70-99)
[2025-04-30 04:39] LABS: Blood Urea Nitrogen 17 mg/dl (7-17); Calcium 8.5 mg/dl (8.4-10.2); Carbon Dioxide 23 mmol/L (22-30); Chloride 110 mmol/L (98-107); Estimated Creatinine Clearance 32 ml/min; Glucose 66 mg/dl (70-99); Potassium 3.4 mmol/L (3.5-5.1); Sodium 138 mmol/L (135-145); eGFR > 60.00
[2025-04-30 04:53] LABS: Glucose - Point of Care 72 mg/dl (70-99)
[2025-04-30 05:57] VITALS: BMI 19.7
[2025-04-30] MEDS: SYNTHROID 50 MCG PO (06:13)
[2025-04-30 06:32] LABS: Glucose - Point of Care 74 mg/dl (70-99)
[2025-04-30 07:00] VITALS: BP 148/61
--- NOTE | 2025-04-30 07:56 | PN.DE.MGMTRT ---
Insulin Management
- -
04/30/25: Diabetes Management Follow up
Patient found unresponsive at home brought ED 04/17. PMH: Significant for A-Fib, HTN and T2DM. Pt was noted hypotension for EMS with BP in the 80s/50s and hypoglycemia with blood sugar of 35. Treated with dextrose and glucose improved to 147, however
she remained unresponsive/obtunded and was intubated in the ER. She was noted for severe azotemia and metabolic acidosis and hypoglycemia upon arrival to the ED. Her glucose was reportedly in the 20s earlier at home. Metformin is the only diabetes
medication listed. Hemoglobin A1C 5.7%, Cr 0.8, eGFR > 60.
Glucoses subsequently improved and pt developed hyperglycemia, requiring insulin infusion, critical care glycemic protocol was briefly started on 04/18 for 4 hrs.
Patient is awake, confused, no family at bedside.
s/p thoracentesis 04/27.
Removed Dobhoff tube 04/28, started clear liquids with dinner.
Glucose range 77 to 99, required no low corrective insulin.
04/30 Fasting glucose 66. Received no insulin or oral diabetes medications.
Will cont to follow.
Patient A1C of 5.7% much too low for age and comorbidities. Will not restart metformin.
Discussed with Nurse.
Diabetes History
- -
Type of Diabetes: 2
Pre-Admission Diabetes Regimen
04/30/25
03:54
Creatinine 0.9
Lab Results
Hemoglobin A1c 5.7 % (4.0-5.6) H 04/18/25 04:15
Insulin Pump Settings
IP Diabetes Regimen
04/29/25 04/29/25 04/30/25
13:34 18:16 01:42
Glucose
POC Glucose 81 92 75
04/30/25 04/30/25 04/30/25
03:54 04:52 06:29
Glucose 66 L
POC Glucose 72 74
Patient Education
[2025-04-30] MEDS: TOPROL XL 25 MG PO (08:53)
[2025-04-30] MEDS: ZESTRIL 40 MG PO (08:55)
[2025-04-30] MEDS: ELIQUIS 2.5 MG PO ×2 (08:56→21:22)
[2025-04-30] MEDS: PACERONE 200 MG PO (08:56)
[2025-04-30] MEDS: ROBITUSSIN 200 MG PO ×2 (08:56→21:22)
[2025-04-30] MEDS: NSS (PRESERVATIVE FREE) 10 ML IV (08:56)
--- NOTE | 2025-04-30 10:48 | W.PN.HOSP.TC ---
Today's Communication/Plan
-
DC planning
Assessment / Plan
Assessment / Plan
#Acute toxic metabolic encephalopathy -most likely multifactorial etiology including hypoglycemia, hypotension, severe metabolic acidosis, NALINI, etc.
CT head on admission shows no acute abnormality. No hemorrhage. 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 Baseline cognition unknown.
Off Precedex drip
Remains calmer and follows commands
#Acute hypoxic respiratory failure
Right-sided pleural effusion.
Status post intubated and mechanical ventilation on admission
s/p extubation
Chest ultrasound shows normal fluid on the right side to tap.
Bronchodilators.
Remains on room air
#Shock likely septic ESBL UTI and MRSA pneumonia
off pressors
Did receive IV albumin as ordered by nephrology.
Blood cultures negative so far, urine culture w/ESBL
Urinalysis does show pyuria.
Sputum sample with MRSA/Yeast
Finished ertapenem course per ID. Completed course of vancomycin.
ID on board
#NALINI -likely due to shock, hypotension, ATN, hypovolemia, etc.
#Anasarca
Status post hemodialysis.
Cr stabilized. Lactic acidosis resolved.
Defer diuresis to nephrology
Diuresis per nephrology
#Acute anemia
presentation with hemoglobin 10.6,
Hgb at 6.5. s/p 1u of PRBC so far. H&H stable
No hematuria or luminal bleeding noted
In the setting of anemia and blood transfusion requirement Eliquis kept on hold
Hemoglobin stabilizing and uptrending.
Restarted Eliquis.
Follow for active bleeding
#Acute thrombocytopenia
Possibly due to critical illness, shock, antibiotics inflammatory state etc . Unlikely to be HIT. Doubt TTP as her platelet count on presentation was normal.
Platelets are stable oxygen now uptrending
low probability with 4T score. Will check HIT panel. Hold heparin. Can hold off on starting anticoagulation.
Platelets are starting to stabilize. Platelets stable
#Urinary retention
Voiding trail
#Dysphagia
Pulled NG tube
S/P VSE 04/28 - cleared for clear liquids
cw SPT and advance diet as able -now on pureed
#Bilateral superficial thrombosis
can place Midline superior to clot.
Heme input noted
#Acute ischemic hepatitis -elevated transaminases, likely due to the shock.
Alk phos elevated seems to be plateauing
Hepatitis panel negative
#High AG metabolic acidosis -presentation with shock, lactic acidosis, NALINI.
Unclear if patient with type B lactic acidosis. resolved.
# Essential HTN -resumed home meds of ACEI and BB
#Hypothermia -resolved.
TSH 31, free T4 normal at 1.3. 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
Empirically started on IV levothyroxine and now transition to p.o.
Random cortisol more than adequate, 46.2.
Transition patient to 50 mcg p.o. Synthroid.
Repeat TSH w/FT4 in the morning.
#Atrial fibrillation, unknown type
restarted on amiodarone
Admission EKG with sinus rhythm and first-degree AV block.
Nonspecific intraventricular conduction block.
ECHO 04/20/25- LV ejection fraction is 55-60%. No regional wall motion abnormalities are seen. Normal right ventricular size and function. Mild to moderate mitral regurgitation. Aortic sclerosis without stenosis. Mild aortic regurgitation.
Hypokalemia -replete
DM2 with hypoglycemia/hyperglycemia -presentation with glucose 45, reportedly glucose in the 20s at home. Metformin listed as the only diabetes medication.
Required insulin IV infusion on 04/18, glucoses subsequently improved and did have hypoglycemia. Currently off IV insulin.
Hemoglobin A1c 5.7%.
Full code
DVT ppx-SCDs in setting of thrombocytopenia.
Updated granddaughter yesterday
Medically stable for DC to rehab
Anticipated Discharge: Today
Subjective/Interval History
-
Date of Service: April 30, 2025
No overnight events
Looks comfortable and smiling.
Thanks for the visit.
Difficult ot communicate due to language barrier.
Objective Data
-
Labs:
Laboratory Results
04/30/25
03:54
Sodium 138
Potassium 3.4 L
Chloride 110 H
Carbon Dioxide 23
BUN 17
Creatinine 0.9
Glucose 66 L
Calcium 8.5
Vital Signs:
Vital Signs
Temp Pulse Resp BP Pulse Ox
97.4 F 69 16 148/61 98
04/30/25 07:00 04/30/25 07:00 04/30/25 07:00 04/30/25 07:00 04/30/25 09:08
I&O
04/29/25 04/30/25 05/01/25
06:59 06:59 06:59
Intake Total 120 / 120 120 / 120 240 / 240
Output Total 850 / 850 650 / 650 1000 / 1000
Balance -730 / -730 -530 / -530 -760 / -760
Physical Exam
-
General: No Apparent Distress
HEENT: Moist Mucous Membranes
Respiratory: Clear to Auscultation and Non Labored Respirations; Negative Accessory Resp Muscle Use
Cardiac: Regular Rhythm and S1/S2; Negative Tachycardic
GI: Soft and Nontender
Neuro: Awake and Alert
Psych: Calm
Data Reviewed
-
Labs: Labs Reviewed by me
[2025-04-30 11:58] LABS: Glucose - Point of Care 84 mg/dl (70-99)
[2025-04-30] MEDS: KCL ELIXIR 40 MEQ PO (12:34)
[2025-04-30] MEDS: ROBITUSSIN PO ×2 (12:38→17:27)
[2025-04-30 13:29] VITALS: BP 167/69; PULSE 74
[2025-04-30 15:00] VITALS: BP 161/76
[2025-04-30 18:04] LABS: Glucose - Point of Care 77 mg/dl (70-99)
[2025-04-30] MEDS: SENNA SYRUP TUBE ×2 (21:23→21:32)
[2025-04-30 23:00] VITALS: BP 152/63
[2025-04-30 23:57] LABS: Glucose - Point of Care 75 mg/dl (70-99)
[2025-05-01 05:47] VITALS: BMI 19.3
[2025-05-01] MEDS: SYNTHROID 50 MCG PO (05:47)
[2025-05-01 07:05] LABS: Glucose - Point of Care 63 mg/dl (70-99)
[2025-05-01] MEDS: DEXTROSE 50% SYRINGE 12.5 GRAMS IV (07:13)
[2025-05-01 07:28] LABS: Glucose - Point of Care 191 mg/dl (70-99)
--- NOTE | 2025-05-01 07:28 | PTCARENOTE ---
at 0713, patient's AccuCheck 63. no s/s of hypoglycemia. patient refusing to drink 4 ounces of juice per diabetic protocol. 12.5grams of Dextrose IV administered per protocol. AccuCheck rechecked at 07 and was 191, will continue to monitor.
--- NOTE | 2025-05-01 07:38 | PN.DE.MGMTRT ---
Insulin Management
- -
05/01/25: Diabetes Management Follow up
Patient found unresponsive at home brought ED 04/17. PMH: Significant for A-Fib, HTN and T2DM. Pt was noted hypotension for EMS with BP in the 80s/50s and hypoglycemia with blood sugar of 35. Treated with dextrose and glucose improved to 147, however
she remained unresponsive/obtunded and was intubated in the ER. She was noted for severe azotemia and metabolic acidosis and hypoglycemia upon arrival to the ED. Her glucose was reportedly in the 20s earlier at home. Metformin is the only diabetes
medication listed. Hemoglobin A1C 5.7%, Cr 0.8, eGFR > 60.
Glucoses subsequently improved and pt developed hyperglycemia, requiring insulin infusion, critical care glycemic protocol was briefly started on 04/18 for 4 hrs.
Patient is awake, confused, unable to discuss diabetes care plan, no family at bedside.
s/p thoracentesis 04/27. Removed Dobhoff tube 04/28, started clear liquids with dinner.
04/30 Glucose range 77 to 84, required no low corrective insulin. Noted ror an episode of hypoglycemia (63) this AM. Received no insulin or oral diabetes medications. Will cont to follow.
Patient A1C of 5.7% much too low for age and comorbidities. Will not restart metformin.
Discussed with Nurse.
Diabetes History
- -
Type of Diabetes: 2
Pre-Admission Diabetes Regimen
Lab Results
Hemoglobin A1c 5.7 % (4.0-5.6) H 04/18/25 04:15
Insulin Pump Settings
IP Diabetes Regimen
04/30/25 04/30/25 04/30/25
11:56 18:03 23:55
POC Glucose 84 77 75
05/01/25 05/01/25
07:03 07:28
POC Glucose 63 L 191 H
Meal type: Dinner
Meal type: Breakfast
Amount consumed: Patient refused
Amount consumed: 10%
Patient Education
[2025-05-01 07:51] VITALS: BP 202/95
[2025-05-01] MEDS: ELIQUIS 2.5 MG PO ×2 (08:59→20:35)
[2025-05-01] MEDS: ZESTRIL 40 MG PO (08:59)
[2025-05-01] MEDS: PACERONE 200 MG PO (09:00)
[2025-05-01] MEDS: TOPROL XL 25 MG PO (09:00)
[2025-05-01] MEDS: NSS (PRESERVATIVE FREE) IV (09:05)
[2025-05-01] MEDS: ROBITUSSIN PO ×4 (09:08→22:43)
[2025-05-01 09:19] VITALS: BP 121/94
--- NOTE | 2025-05-01 09:32 | CM ---
Addendum entered by Haydee Vincent 05/01/25 09:35:
Attending notified
Original Note:
PT recommends SNF; discussed with granddaughter, Annette; family is agreeable; multiple referrals sent to facilities in [employer] network
Plan: Discharge to SNF pending bed availability and authorization approval
--- NOTE | 2025-05-01 10:54 | W.PN.HOSP.TC ---
Today's Communication/Plan
-
Continue with current treatments
Ongoing disposition efforts
Assessment / Plan
Assessment / Plan
#Acute toxic metabolic encephalopathy -most likely multifactorial etiology including hypoglycemia, hypotension, severe metabolic acidosis, NALINI, etc.
CT head on admission shows no acute abnormality. No hemorrhage. 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 Baseline cognition unknown.
Off Precedex drip
Remains calmer and follows commands
#Acute hypoxic respiratory failure
Right-sided pleural effusion.
Status post intubated and mechanical ventilation on admission
s/p extubation
Chest ultrasound shows normal fluid on the right side to tap.
Bronchodilators.
Remains on room air
#Shock likely septic ESBL UTI and MRSA pneumonia
off pressors
Did receive IV albumin as ordered by nephrology.
Blood cultures negative so far, urine culture w/ESBL
Urinalysis does show pyuria.
Sputum sample with MRSA/Yeast
Finished ertapenem course per ID. Completed course of vancomycin.
#NALINI -likely due to shock, hypotension, ATN, hypovolemia, etc.
#Anasarca
Status post hemodialysis.
Cr stabilized. Lactic acidosis resolved.
#Acute anemia
presentation with hemoglobin 10.6,
Hgb at 6.5. s/p 1u of PRBC so far. H&H stable
No hematuria or luminal bleeding noted
In the setting of anemia and blood transfusion requirement Eliquis kept on hold
Hemoglobin stabilizing and uptrending.
Restarted Eliquis.
Follow for active bleeding
#Acute thrombocytopenia
Possibly due to critical illness, shock, antibiotics inflammatory state etc . Unlikely to be HIT. Doubt TTP as her platelet count on presentation was normal.
Platelets are stable oxygen now uptrending
low probability with 4T score. Will check HIT panel. Hold heparin. Can hold off on starting anticoagulation.
Platelets are starting to stabilize. Platelets stable
#Dysphagia
Pulled NG tube
S/P VSE 04/28 - cleared for clear liquids
cw SPT and advance diet as able -now on pureed
#Bilateral superficial thrombosis
can place Midline superior to clot.
Heme input noted
#Acute ischemic hepatitis -elevated transaminases, likely due to the shock.
Alk phos elevated seems to be plateauing
Hepatitis panel negative
#High AG metabolic acidosis -presentation with shock, lactic acidosis, NALINI.
Unclear if patient with type B lactic acidosis. resolved.
# Essential HTN -resumed home meds of ACEI and BB
#Hypothermia -resolved.
TSH 31, free T4 normal at 1.3. 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
Empirically started on IV levothyroxine and now transition to p.o.
Random cortisol more than adequate, 46.2.
Transitioned patient to 50 mcg p.o. Synthroid.
#Atrial fibrillation, unknown type
restarted on amiodarone
Admission EKG with sinus rhythm and first-degree AV block.
Nonspecific intraventricular conduction block.
ECHO 04/20/25- LV ejection fraction is 55-60%. No regional wall motion abnormalities are seen. Normal right ventricular size and function. Mild to moderate mitral regurgitation. Aortic sclerosis without stenosis. Mild aortic regurgitation.
DM2 with hypoglycemia/hyperglycemia -presentation with glucose 45, reportedly glucose in the 20s at home. Metformin listed as the only diabetes medication.
Required insulin IV infusion on 04/18, glucoses subsequently improved and did have hypoglycemia. Currently off IV insulin.
Hemoglobin A1c 5.7%.
Full code
DVT ppx-SCDs in setting of thrombocytopenia.
Medically stable for DC to rehab
Discussed with case management who had a word with granddaughter-ongoing disposition efforts to rehab
Anticipated Discharge: Within 24 hours
Subjective/Interval History
-
Date of Service: May 01, 2025
No overnight events
Tolerating diet
Objective Data
-
Vital Signs:
Vital Signs
Temp Pulse Resp BP Pulse Ox
97.4 F 65 18 121/94 98
05/01/25 07:51 05/01/25 07:51 05/01/25 07:51 05/01/25 09:19 05/01/25 07:51
I&O
04/30/25 05/01/25 05/02/25
06:59 06:59 06:59
Intake Total 120 / 120 560 / 560
Output Total 650 / 650 1200 / 1200
Balance -530 / -530 -640 / -640
Review of Systems
-
Unable to obtain full review of systems at this time due to: Language Barrier
Physical Exam
-
General: Comfortable
Respiratory: Clear to Auscultation and Non Labored Respirations; Negative Accessory Resp Muscle Use
Cardiac: Regular Rhythm and S1/S2; Negative Tachycardic
GI: Soft and Nontender
Neuro: Awake and Alert
Psych: Calm; Negative Agitated
[2025-05-01 12:00] LABS: Glucose - Point of Care 73 mg/dl (70-99)
--- NOTE | 2025-05-01 14:45 | PTOTSP ---
Speech Language Pathology
Pt seen for dysphagia tx. Family brought in dentures. Assisted pt in placing them. Poor fit noted. Seen with thin liquids and regular solids. Pt with difficulty biting piece off cracker, and dentures moving while attempting to chew. Prolonged
mastication, suspect for this reason, with mild diffuse oral residue.
Recommend:
(1) Upgrade to IDDSI Level 5 (minced/moist) and thin liquids
(2) Aspiration precautions: sit upright, dentures in place for meals, slow rate
(3) Meds as tolerated
(4) SHIP CONSTRUCTION TEACHER to continue to follow
[2025-05-01 15:10] VITALS: BP 140/60
--- NOTE | 2025-05-01 16:17 | PTCARENOTE ---
patent with poor intake all day. wants '[place] food'. requested family bring in in hopes that it improved patient's intake. appears comfortable, turns with max assist, vss, will continue to monitor.
[2025-05-01 18:02] LABS: Glucose - Point of Care 76 mg/dl (70-99)
[2025-05-01 22:18] LABS: Glucose - Point of Care 80 mg/dl (70-99)
[2025-05-01] MEDS: SENNA SYRUP TUBE (22:43)
[2025-05-01 22:58] VITALS: BP 174/81
[2025-05-01] MEDS: APRESOLINE 10 MG IV (23:01)
[2025-05-02 04:05] LABS: Glucose - Point of Care 98 mg/dl (70-99)
[2025-05-02 04:30] VITALS: BP 153/60
[2025-05-02 05:11] VITALS: BMI 18.0
[2025-05-02] MEDS: SYNTHROID 50 MCG PO (06:15)
[2025-05-02 07:15] LABS: Glucose - Point of Care 86 mg/dl (70-99)
[2025-05-02 07:23] VITALS: BP 178/83
[2025-05-02] MEDS: TOPROL XL 25 MG PO ×2 (08:19→20:07)
[2025-05-02] MEDS: ELIQUIS 2.5 MG PO ×2 (08:19→20:07)
[2025-05-02] MEDS: ZESTRIL 40 MG PO (08:19)
[2025-05-02] MEDS: NSS (PRESERVATIVE FREE) IV (08:20)
[2025-05-02] MEDS: ROBITUSSIN 200 MG PO (08:20)
[2025-05-02] MEDS: PACERONE 200 MG PO (08:20)
[2025-05-02] MEDS: TYLENOL 650 MG PO (09:07)
[2025-05-02 11:04] VITALS: BP 170/85
--- NOTE | 2025-05-02 11:06 | W.PN.HOSP.TC ---
Today's Communication/Plan
-
Increased dose of beta-olesya
Ongoing disposition efforts
Assessment / Plan
Assessment / Plan
#Acute toxic metabolic encephalopathy -most likely multifactorial etiology including hypoglycemia, hypotension, severe metabolic acidosis, NALINI, etc.
CT head on admission shows no acute abnormality. No hemorrhage. 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 Baseline cognition unknown.
Resolved
#Acute hypoxic respiratory failure
Right-sided pleural effusion.
Status post intubated and mechanical ventilation on admission
s/p extubation
Chest ultrasound shows normal fluid on the right side to tap.
Bronchodilators.
Remains on room air
#Shock likely septic ESBL UTI and MRSA pneumonia
off pressors
Did receive IV albumin as ordered by nephrology.
Blood cultures negative so far, urine culture w/ESBL
Urinalysis does show pyuria.
Sputum sample with MRSA/Yeast
Finished ertapenem course per ID. Completed course of vancomycin.
#NALINI -likely due to shock, hypotension, ATN, hypovolemia, etc.
#Anasarca
Status post hemodialysis.
Cr stabilized. Lactic acidosis resolved.
#Acute anemia
presentation with hemoglobin 10.6,
Hgb at 6.5. s/p 1u of PRBC so far. H&H stable
No hematuria or luminal bleeding noted
In the setting of anemia and blood transfusion requirement Eliquis kept on hold
Hemoglobin stable.
Restarted Eliquis.
Follow for active bleeding
#Acute thrombocytopenia
Possibly due to critical illness, shock, antibiotics inflammatory state etc . Unlikely to be HIT. Doubt TTP as her platelet count on presentation was normal.
Platelets are stable oxygen now uptrending
low probability with 4T score. Will check HIT panel. Hold heparin. Can hold off on starting anticoagulation.
Platelets are starting to stabilize. Platelets stable
#Dysphagia
Pulled NG tube
S/P VSE 7/8 - cleared for clear liquids
cw SPT and advance diet as able -now on IDDSI5
#Bilateral superficial thrombosis
can place Midline superior to clot.
Heme input noted
#Acute ischemic hepatitis -elevated transaminases, likely due to the shock.
Alk phos elevated seems to be plateauing
Hepatitis panel negative
#High AG metabolic acidosis -presentation with shock, lactic acidosis, NALINI.
Unclear if patient with type B lactic acidosis. resolved.
# Essential HTN -resumed home meds of ACEI and BB. Increase dose of BB.
#Hypothermia -resolved.
TSH 31, free T4 normal at 1.3. 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
Empirically started on IV levothyroxine and now transition to p.o.
Random cortisol more than adequate, 46.2.
Transitioned patient to 50 mcg p.o. Synthroid.
#Atrial fibrillation, unknown type
restarted on amiodarone
Admission EKG with sinus rhythm and first-degree AV block.
Nonspecific intraventricular conduction block.
ECHO 04/20/25- LV ejection fraction is 55-60%. No regional wall motion abnormalities are seen. Normal right ventricular size and function. Mild to moderate mitral regurgitation. Aortic sclerosis without stenosis. Mild aortic regurgitation.
DM2 with hypoglycemia/hyperglycemia -presentation with glucose 45, reportedly glucose in the 20s at home. Metformin listed as the only diabetes medication.
Required insulin IV infusion on 04/18, glucoses subsequently improved and did have hypoglycemia. Currently off IV insulin.
Hemoglobin A1c 5.7%.
Full code
DVT ppx-SCDs in setting of thrombocytopenia.
Medically stable for DC to rehab
Anticipated Discharge: 24 - 48 hours
Subjective/Interval History
-
Date of Service: May 02, 2025
No overnight events
According to RN-not eating much but no nausea or vomiting. Thinks it may be because of restricted diet. Currently on IDDSI 5 diet
Objective Data
-
Vital Signs:
Vital Signs
Temp Pulse Resp BP Pulse Ox
97.4 F 68 16 170/85 95
05/02/25 07:23 05/02/25 11:04 05/02/25 07:23 05/02/25 11:04 05/02/25 07:23
I&O
05/01/25 05/02/25 05/03/25
06:59 06:59 06:59
Intake Total 560 / 560 240 / 240
Output Total 1200 / 1200
Balance -640 / -640 240 / 240
Review of Systems
-
Unable to obtain full review of systems at this time due to: Language Barrier and Other (Says noted pain and shortness of breath)
Physical Exam
-
General: Comfortable
Respiratory: Clear to Auscultation (Anteriorly) and Non Labored Respirations; Negative Accessory Resp Muscle Use
Cardiac: Regular Rhythm and S1/S2; Negative Tachycardic
GI: Soft and Nontender
Neuro: Awake and Alert
Psych: Calm
[2025-05-02] MEDS: APRESOLINE 10 MG IV (11:07)
[2025-05-02 11:33] LABS: Glucose - Point of Care 104 mg/dl (70-99)
[2025-05-02] MEDS: ROBITUSSIN PO (14:47)
[2025-05-02 15:15] VITALS: BP 145/68
[2025-05-02 15:16] VITALS: BP 145/68
[2025-05-02 17:59] LABS: Glucose - Point of Care 109 mg/dl (70-99)
[2025-05-02] MEDS: SENNA SYRUP 8.8 MG TUBE (20:07)
[2025-05-02 21:41] LABS: Glucose - Point of Care 101 mg/dl (70-99)
[2025-05-02 23:00] VITALS: BP 149/70
[2025-05-03] MEDS: SYNTHROID 50 MCG PO (05:32)
[2025-05-03 06:00] VITALS: BMI 17.6
[2025-05-03 07:00] VITALS: BP 178/62
[2025-05-03 08:00] LABS: Glucose - Point of Care 74 mg/dl (70-99)
[2025-05-03] MEDS: ELIQUIS 2.5 MG PO ×2 (09:19→19:36)
[2025-05-03] MEDS: TOPROL XL 25 MG PO ×2 (09:19→19:35)
[2025-05-03] MEDS: PACERONE 200 MG PO (09:20)
[2025-05-03] MEDS: ZESTRIL 40 MG PO (09:20)
--- NOTE | 2025-05-03 11:26 | W.PN.HOSP.TC ---
Today's Communication/Plan
-
cw current tx
Advance dysphagia diet per SPT
Ongoing dispo efforts
Assessment / Plan
Assessment / Plan
#Acute toxic metabolic encephalopathy -most likely multifactorial etiology including hypoglycemia, hypotension, severe metabolic acidosis, NALINI, etc.
CT head on admission shows no acute abnormality. No hemorrhage. 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 Baseline cognition unknown.
Resolved
#Acute hypoxic respiratory failure
Right-sided pleural effusion.
Status post intubated and mechanical ventilation on admission
s/p extubation
Chest ultrasound shows normal fluid on the right side to tap.
Bronchodilators.
Remains on room air
#Shock likely septic ESBL UTI and MRSA pneumonia
off pressors
Did receive IV albumin as ordered by nephrology.
Blood cultures negative so far, urine culture w/ESBL
Urinalysis does show pyuria.
Sputum sample with MRSA/Yeast
Finished ertapenem course per ID. Completed course of vancomycin.
#NALINI -likely due to shock, hypotension, ATN, hypovolemia, etc.
#Anasarca
Status post hemodialysis.
Cr stabilized. Lactic acidosis resolved.
#Acute anemia
presentation with hemoglobin 10.6,
Hgb at 6.5. s/p 1u of PRBC so far. H&H stable
No hematuria or luminal bleeding noted
In the setting of anemia and blood transfusion requirement Eliquis kept on hold
Hemoglobin stable.
Restarted Eliquis.
Follow for active bleeding
#Acute thrombocytopenia
Possibly due to critical illness, shock, antibiotics inflammatory state etc . Unlikely to be HIT. Doubt TTP as her platelet count on presentation was normal.
Platelets are stable oxygen now uptrending
low probability with 4T score. Will check HIT panel. Hold heparin. Can hold off on starting anticoagulation.
Platelets are starting to stabilize. Platelets stable
#Dysphagia
Pulled NG tube
S/P VSE 7/8 - cleared for clear liquids
cw SPT and advance diet as able -now on IDDSI5
#Bilateral superficial thrombosis
can place Midline superior to clot.
Heme input noted
#Acute ischemic hepatitis -elevated transaminases, likely due to the shock.
Alk phos elevated seems to be plateauing
Hepatitis panel negative
#High AG metabolic acidosis -presentation with shock, lactic acidosis, NALINI.
Unclear if patient with type B lactic acidosis. resolved.
# Essential HTN -resumed home meds of ACEI and BB. Increase dose of BB.
#Hypothermia -resolved.
TSH 31, free T4 normal at 1.3. 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
Empirically started on IV levothyroxine and now transition to p.o.
Random cortisol more than adequate, 46.2.
Transitioned patient to 50 mcg p.o. Synthroid.
#Atrial fibrillation, unknown type
restarted on amiodarone
Admission EKG with sinus rhythm and first-degree AV block.
Nonspecific intraventricular conduction block.
ECHO 04/20/25- LV ejection fraction is 55-60%. No regional wall motion abnormalities are seen. Normal right ventricular size and function. Mild to moderate mitral regurgitation. Aortic sclerosis without stenosis. Mild aortic regurgitation.
DM2 with hypoglycemia/hyperglycemia -presentation with glucose 45, reportedly glucose in the 20s at home. Metformin listed as the only diabetes medication.
Required insulin IV infusion on 04/18, glucoses subsequently improved and did have hypoglycemia. Currently off IV insulin.
Hemoglobin A1c 5.7%.
Full code
DVT ppx-SCDs in setting of thrombocytopenia.
Medically stable for DC to rehab
Await placement
Anticipated Discharge: Within 24 hours
Subjective/Interval History
-
Date of Service: May 03, 2025
No overnight events
Says no to pain or shortness of breath
Difficult conversation due to language barrier
Tolerating diet
Objective Data
-
Vital Signs:
Vital Signs
Temp Pulse Resp BP Pulse Ox
97.5 F 63 16 133/51 98
05/03/25 07:00 05/03/25 09:20 05/03/25 07:00 05/03/25 09:20 05/03/25 07:00
I&O
05/02/25 05/03/25 05/04/25
06:59 06:59 06:59
Intake Total 240 / 240 520 / 520
Balance 240 / 240 520 / 520
Physical Exam
-
General: Comfortable
Respiratory: Crackles (left base) and Non Labored Respirations; Negative Wheezes or Accessory Resp Muscle Use
Cardiac: Regular Rhythm and S1/S2
GI: Soft
Neuro: AO x 3
Psych: Calm
[2025-05-03 11:47] LABS: Glucose - Point of Care 75 mg/dl (70-99)
--- NOTE | 2025-05-03 13:41 | PTCARENOTE ---
freelance interpreter/translator # [id number] Romy used for assessment and plan of care communication with pt. pt not very receptive despite having freelance interpreter/translator available. plan of care continues to be followed.
[2025-05-03 15:00] VITALS: BP 160/63
[2025-05-03 16:39] LABS: Glucose - Point of Care 97 mg/dl (70-99)
[2025-05-03] MEDS: SENOKOT 8.6 MG PO (21:15)
[2025-05-03 22:00] LABS: Glucose - Point of Care 77 mg/dl (70-99)
[2025-05-03 23:00] VITALS: BP 134/67
[2025-05-04] MEDS: SYNTHROID 50 MCG PO (05:07)
[2025-05-04 06:33] LABS: Glucose - Point of Care 76 mg/dl (70-99)
--- NOTE | 2025-05-04 07:46 | PN.DE.MGMTRT ---
Insulin Management
- -
05/04/25: Diabetes Management Follow up
Patient found unresponsive at home brought ED 04/17. PMH: Significant for A-Fib, HTN and T2DM. Pt was noted hypotension for EMS with BP in the 80s/50s and hypoglycemia with blood sugar of 35. Treated with dextrose and glucose improved to 147, however
she remained unresponsive/obtunded and was intubated in the ER. She was noted for severe azotemia and metabolic acidosis and hypoglycemia upon arrival to the ED. Her glucose was reportedly in the 20s earlier at home. Metformin is the only diabetes
medication listed. Hemoglobin A1C 5.7%, Cr 0.8, eGFR > 60.
Glucoses subsequently improved and pt developed hyperglycemia. Required insulin IV infusion and critical care glycemic protocol was briefly started on 04/18 for 4 hrs. Glucoses improved with subsequent hypoglycemia.
Patient is awake, pleasantly confused, unable to discuss diabetes care plan, no family at bedside.
s/p thoracentesis 04/27. Removed Dobhoff tube 04/28, started clear liquids, advanced to dysphagia diet.
Noted for poor appetite and barely eating any of her meals. Glucose low normal, premeal 74 to 97, Received no insulin or oral diabetes medications x4 days. HS glucose was 77 and fasting 76 this AM. Patient A1C 5.7% much too low for age and
comorbidities. Will not restart metformin.
Will cont to follow and monitor glucose. Discussed with Nurse.
Diabetes History
- -
Type of Diabetes: 2
Pre-Admission Diabetes Regimen
Lab Results
Hemoglobin A1c 5.7 % (4.0-5.6) H 04/18/25 04:15
Insulin Pump Settings
IP Diabetes Regimen
05/03/25 05/03/25 05/03/25
07:59 11:46 16:37
POC Glucose 74 75 97
05/03/25 05/04/25
21:43 06:30
POC Glucose 77 76
Meal type: Lunch
Meal type: Breakfast
Amount consumed: Patient refused
Amount consumed: 10%
Patient Education
[2025-05-04 07:50] VITALS: BP 171/67
[2025-05-04] MEDS: ZESTRIL 40 MG PO (08:34)
[2025-05-04] MEDS: ELIQUIS 2.5 MG PO ×2 (08:35→20:56)
[2025-05-04] MEDS: PACERONE 200 MG PO (08:35)
[2025-05-04] MEDS: TOPROL XL 25 MG PO ×2 (08:36→20:21)
[2025-05-04 09:46] LABS: Hematocrit 28.0 % (37.0-47.0); Hemoglobin 9.1 g/dL (12.0-16.0); Mean Corp Hgb Conc. 32.5 g/dL (33.0-37.0); Mean Corpuscular Volume 87.0 fL (81.0-99.0); Nucleated Red Blood Cells % 0 %; Platelet Count 528 10^3/uL (130-400); Red Cell Dist. Width 16.0 % (11.5-14.5)
[2025-05-04 10:22] LABS: ALT (SGPT) 34 U/L (0-35); AST (SGOT) 25 U/L (14-36); Albumin 2.9 g/dl (3.5-5.0); Alkaline Phosphatase 162 U/L (38-126); Blood Urea Nitrogen 14 mg/dl (7-17); Calcium 8.4 mg/dl (8.4-10.2); Carbon Dioxide 24 mmol/L (22-30); Chloride 104 mmol/L (98-107); Estimated Creatinine Clearance 24 ml/min; Glucose 108 mg/dl (70-99); Potassium 2.7 mmol/L (3.5-5.1); Sodium 134 mmol/L (135-145); Total Protein 5.6 g/dl (6.3-8.2); eGFR 49.86
[2025-05-04] MEDS: KCL 270 MEQ IV (11:04)
[2025-05-04] MEDS: KCL ELIXIR 40 MEQ PO (11:09)
[2025-05-04 11:30] VITALS: BP 179/71
--- NOTE | 2025-05-04 12:18 | W.PN.HOSP.TC ---
Addendum entered and electronically signed by Alex Foreman MD 05/06/25 11:15:
Late addendum. PT was examined on 05/05.
Late addendum. Pt was seen and also examined on 05/04/25
Gen- awake,
HEENT-NC, AT, anicteric, clear oral mm, Dobhoff tube noted
Neck-supple, RIJ line noted
CV-reg, no M, +S1/S2
Lungs-rhonch b/l
Abd-soft, NT, ND
Ext-no edema
Musculoskeletal-no cyanosis, left clubfoot, edema B/U UE, improvement in LE edema souleymane thighs
Skin-warm and dry
Neuro-awake,
Original Note:
Today's Communication/Plan
-
Replete potassium aggressively
Continue with amiodarone and Eliquis
Await for placement
Assessment / Plan
Assessment / Plan
#Acute toxic metabolic encephalopathy -most likely multifactorial etiology including hypoglycemia, hypotension, severe metabolic acidosis, NALINI, etc.
CT head on admission shows no acute abnormality. No hemorrhage. 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 Baseline cognition unknown.
Resolved
#Acute hypoxic respiratory failure
Right-sided pleural effusion.
Status post intubated and mechanical ventilation on admission
s/p extubation
Chest ultrasound shows normal fluid on the right side to tap.
Bronchodilators.
Remains on room air
#Shock likely septic ESBL UTI and MRSA pneumonia
off pressors
Did receive IV albumin as ordered by nephrology.
Blood cultures negative so far, urine culture w/ESBL
Urinalysis does show pyuria.
Sputum sample with MRSA/Yeast
Finished ertapenem course per ID. Completed course of vancomycin.
#NALINI -likely due to shock, hypotension, ATN, hypovolemia, etc.
#Anasarca
#Hypokalemia status post aggressive repletion
Status post hemodialysis.
Cr stabilized. Lactic acidosis resolved.
#Acute anemia
presentation with hemoglobin 10.6,
Hgb at 6.5. s/p 1u of PRBC so far. H&H stable
No hematuria or luminal bleeding noted
Hemoglobin stable.
Restarted Eliquis.
#Acute thrombocytopenia
Possibly due to critical illness, shock, antibiotics inflammatory state etc . Unlikely to be HIT. Doubt TTP as her platelet count on presentation was normal.
Platelets are stable oxygen now uptrending
low probability with 4T score. Will check HIT panel. Hold heparin. Can hold off on starting anticoagulation.
Platelets are starting to stabilize. Platelets stable
#Dysphagia
Pulled NG tube
S/P VSE 04/28 - cleared for clear liquids
cw SPT and advance diet as able -now on IDDSI5
#Bilateral superficial thrombosis
Heme input noted
#Acute ischemic hepatitis -elevated transaminases, likely due to the shock.
Alk phos elevated seems to be plateauing
Hepatitis panel negative
#High AG metabolic acidosis -presentation with shock, lactic acidosis, NALINI.
Unclear if patient with type B lactic acidosis. resolved.
# Essential HTN -resumed home meds of ACEI and BB. Increase dose of BB.
#Hypothermia -resolved.
TSH 31, free T4 normal at 1.3. 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
Empirically started on IV levothyroxine and now transition to p.o.
Random cortisol more than adequate, 46.2.
Transitioned patient to 50 mcg p.o. Synthroid.
#Atrial fibrillation, unknown type
restarted on amiodarone
Admission EKG with sinus rhythm and first-degree AV block.
Nonspecific intraventricular conduction block.
ECHO 04/20/25- LV ejection fraction is 55-60%. No regional wall motion abnormalities are seen. Normal right ventricular size and function. Mild to moderate mitral regurgitation. Aortic sclerosis without stenosis. Mild aortic regurgitation.
DM2 with hypoglycemia/hyperglycemia -presentation with glucose 45, reportedly glucose in the 20s at home. Metformin listed as the only diabetes medication.
Required insulin IV infusion on 04/18, glucoses subsequently improved and did have hypoglycemia. Currently off IV insulin.
Hemoglobin A1c 5.7%.
Full code
DVT ppx-eliquis
Medically stable for DC to rehab
Await placement
Anticipated Discharge: Today
Subjective/Interval History
-
Date of Service: May 04, 2025
No events overnight
Stable on room air
Objective Data
-
Labs:
Laboratory Results
05/04/25
09:17
WBC 4.2 L
Hgb 9.1 L
Hct 28.0 L
Plt Count 528 H D
Sodium 134 L
Potassium 2.7 L*
Chloride 104
Carbon Dioxide 24
BUN 14
Creatinine 1.1 H
Glucose 108 H
Calcium 8.4
Total Bilirubin 0.6
AST 25
ALT 34
Alkaline Phosphatase 162 H
Vital Signs:
Vital Signs
Temp Pulse Resp BP Pulse Ox
97.6 F 56 16 179/71 97
05/04/25 11:30 05/04/25 11:30 05/04/25 11:30 05/04/25 11:30 05/04/25 11:30
I&O
05/03/25 05/04/25 05/05/25
06:59 06:59 06:59
Intake Total 520 / 520 720 / 720
Balance 520 / 520 720 / 720
[2025-05-04 12:26] LABS: Glucose - Point of Care 88 mg/dl (70-99)
[2025-05-04 15:30] VITALS: BP 162/73
--- NOTE | 2025-05-04 15:58 | CM ---
CM spoke with Marianela's granddaughter, Annette. I left a voicemail to make her aware that Lauren is ready for discharge to SNF and has been accepted for transfer to [facility], [facility] and [facility].
Plan: CM to follow up with pt's granddaughter to identify choice of SNF placement and coordinate insurance authorization for SNF transfer.
[2025-05-04 16:59] LABS: Glucose - Point of Care 85 mg/dl (70-99)
[2025-05-04] MEDS: SENOKOT 8.6 MG PO (20:56)
[2025-05-04 21:38] LABS: Glucose - Point of Care 86 mg/dl (70-99)
--- NOTE | 2025-05-04 22:17 | PTCARENOTE ---
Pt will not keep alert bracelets in place. Currently sitting on side table
[2025-05-04 23:06] VITALS: BP 151/59
[2025-05-05 06:00] VITALS: BMI 18.7
[2025-05-05] MEDS: SYNTHROID 50 MCG PO (06:14)
[2025-05-05 06:55] LABS: Blood Urea Nitrogen 15 mg/dl (7-17); Calcium 8.2 mg/dl (8.4-10.2); Carbon Dioxide 27 mmol/L (22-30); Chloride 107 mmol/L (98-107); Estimated Creatinine Clearance 28 ml/min; Glucose 70 mg/dl (70-99); Magnesium 2.0 mg/dl (1.6-2.3); Potassium 3.0 mmol/L (3.5-5.1); Sodium 137 mmol/L (135-145); eGFR 55.90
[2025-05-05 07:40] LABS: Glucose - Point of Care 76 mg/dl (70-99)
--- NOTE | 2025-05-05 07:55 | PN.DE.MGMTRT ---
Insulin Management
- -
05/05/25: Diabetes Management Follow up
Patient found unresponsive at home brought ED 04/17. PMH: Significant for A-Fib, HTN and T2DM. Pt was noted hypotension for EMS with BP in the 80s/50s and hypoglycemia with blood sugar of 35. Treated with dextrose and glucose improved to 147, however
she remained unresponsive/obtunded and was intubated in the ER. She was noted for severe azotemia and metabolic acidosis and hypoglycemia upon arrival to the ED. Her glucose was reportedly in the 20s earlier at home. Metformin is the only diabetes
medication listed. Hemoglobin A1C 5.7%, Cr 0.8, eGFR > 60.
Glucoses subsequently improved and pt developed hyperglycemia. Required insulin IV infusion and critical care glycemic protocol was briefly started on 04/18 for 4 hrs. Glucoses improved with subsequent hypoglycemia.
Patient is awake, pleasantly confused, unable to discuss diabetes care plan, no family at bedside.
s/p thoracentesis 04/27. Removed Dobhoff tube 04/28, started clear liquids, advanced to dysphagia diet.
Noted for poor appetite and barely eating any of her meals. Glucose low normal, premeal 85 to 88, HS glucose was 86 and fasting 70 V, 76 POC this AM.
Received no insulin or oral diabetes medications since 04/27/25. Will stop all insulin at this time. Will not restart metformin. Patient A1C 5.7% much too low for age and comorbidities. Will sign off today. Please reconsult Diabetes team if needed.
Discussed with Nurse.
Diabetes History
- -
Type of Diabetes: 2 requiring insulin
Pre-Admission Diabetes Regimen
05/04/25 05/05/25
09:17 06:08
Creatinine 1.1 H 1.0
Lab Results
Hemoglobin A1c 5.7 % (4.0-5.6) H 04/18/25 04:15
Insulin Pump Settings
IP Diabetes Regimen
05/04/25 05/04/25 05/04/25
09:17 12:25 16:57
Glucose 108 H
POC Glucose 88 85
05/04/25 05/05/25 05/05/25
21:35 06:08 07:39
Glucose 70
POC Glucose 86 76
Patient Education
[2025-05-05 08:10] VITALS: BP 197/81
[2025-05-05] MEDS: TOPROL XL 25 MG PO ×2 (09:00→21:46)
[2025-05-05] MEDS: PACERONE 200 MG PO (09:00)
[2025-05-05] MEDS: ELIQUIS 2.5 MG PO ×2 (09:00→21:46)
[2025-05-05] MEDS: ZESTRIL 40 MG PO (09:00)
[2025-05-05] MEDS: KCL ELIXIR 40 MEQ TUBE (09:06)
[2025-05-05] MEDS: KCL 270 MEQ IV (09:07)
--- NOTE | 2025-05-05 11:13 | W.PN.HOSP.TC ---
Addendum entered and electronically signed by Alex Foreman MD 05/06/25 11:15:
Late addendum. PT was examined on 05/05.
Gen- awake,
HEENT-NC, AT, anicteric, clear oral mm, Dobhoff tube noted
Neck-supple, RIJ line noted
CV-reg, no M, +S1/S2
Lungs-rhonch b/l
Abd-soft, NT, ND
Ext-no edema
Musculoskeletal-no cyanosis, left clubfoot, edema
Skin-warm and dry
Neuro-awake,
Original Note:
Today's Communication/Plan
-
replete kcl
await placement.
Assessment / Plan
Assessment / Plan
#Acute toxic metabolic encephalopathy -most likely multifactorial etiology including hypoglycemia, hypotension, severe metabolic acidosis, NALINI, etc.
CT head on admission shows no acute abnormality. No hemorrhage. 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 Baseline cognition unknown.
Resolved
#Acute hypoxic respiratory failure
Right-sided pleural effusion.
Status post intubated and mechanical ventilation on admission
s/p extubation
Chest ultrasound shows normal fluid on the right side to tap.
Bronchodilators.
Remains on room air
#Shock likely septic ESBL UTI and MRSA pneumonia
off pressors
Did receive IV albumin as ordered by nephrology.
Blood cultures negative so far, urine culture w/ESBL
Urinalysis does show pyuria.
Sputum sample with MRSA/Yeast
Finished ertapenem course per ID. Completed course of vancomycin.
#NALINI -likely due to shock, hypotension, ATN, hypovolemia, etc.
#Anasarca
#Hypokalemia status post aggressive repletion
Status post hemodialysis.
Cr stabilized. Lactic acidosis resolved.
#Acute anemia
presentation with hemoglobin 10.6,
Hgb at 6.5. s/p 1u of PRBC so far.
No hematuria or luminal bleeding noted
Hemoglobin stable.
Restarted Eliquis.
#Acute thrombocytopenia
Possibly due to critical illness, shock, antibiotics inflammatory state etc . .
Platelets are starting to stabilize. Platelets stable
#Dysphagia
Pulled NG tube
S/P VSE / - cleared for clear liquids
cw SPT and advance diet as able -now on IDDSI5
#Bilateral superficial thrombosis
Heme input noted
#Acute ischemic hepatitis -elevated transaminases, likely due to the shock.
Alk phos elevated seems to be plateauing
Hepatitis panel negative
#High AG metabolic acidosis -presentation with shock, lactic acidosis, NALINI.
Unclear if patient with type B lactic acidosis. resolved.
# Essential HTN -resumed home meds of ACEI and BB. Increase dose of BB.
#Hypothermia -resolved.
TSH 31, free T4 normal at 1.3. 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
Empirically started on IV levothyroxine and now transition to p.o.
Random cortisol more than adequate, 46.2.
Transitioned patient to 50 mcg p.o. Synthroid.
#Atrial fibrillation, unknown type
restarted on amiodarone
Admission EKG with sinus rhythm and first-degree AV block.
Nonspecific intraventricular conduction block.
ECHO 04/20/25- LV ejection fraction is 55-60%. No regional wall motion abnormalities are seen. Normal right ventricular size and function. Mild to moderate mitral regurgitation. Aortic sclerosis without stenosis. Mild aortic regurgitation.
DM2 with hypoglycemia/hyperglycemia -presentation with glucose 45, reportedly glucose in the 20s at home. Metformin listed as the only diabetes medication.
Required insulin IV infusion on 04/18, glucoses subsequently improved and did have hypoglycemia. Currently off IV insulin.
Hemoglobin A1c 5.7%.
Full code
DVT ppx-eliquis
Medically stable for DC to rehab. CM aware.
Await placement
Anticipated Discharge: Today
Subjective/Interval History
-
Date of Service: May 05, 2025
pt requested to eat popcorn earlier
Objective Data
-
Labs:
Laboratory Results
05/05/25
06:08
Sodium 137
Potassium 3.0 L
Chloride 107
Carbon Dioxide 27
BUN 15
Creatinine 1.0
Glucose 70
Calcium 8.2 L
Vital Signs:
Vital Signs
Temp Pulse Resp BP Pulse Ox
97.4 F 60 13 197/81 100
05/05/25 08:10 05/05/25 09:00 05/05/25 08:10 05/05/25 09:00 05/05/25 08:10
I&O
05/04/25 05/05/25 05/06/25
06:59 06:59 06:59
Intake Total 720 / 720 460 / 460
Balance 720 / 720 460 / 460
--- NOTE | 2025-05-05 12:21 | CM ---
Spoke with patient's granddaughter who stated that she reviewed SNF options and would like for patient to go to [facility]. Called Laura in admissions at [facility] who confirmed the ability to accept patient, NPI #s for auth: Tax
ID [id number]
Will initiate auth for hopeful transfer.
Plan: Case management will continue to follow and assist with discharge planning. Transfer to [facility] upon obtaining auth.
[2025-05-05 12:42] LABS: Glucose - Point of Care 82 mg/dl (70-99)
[2025-05-05 15:00] VITALS: BP 178/81
[2025-05-05 16:43] LABS: Glucose - Point of Care 72 mg/dl (70-99)
--- NOTE | 2025-05-05 19:59 | VATNOTE ---
CALLED TO ASSESS NON-OCCLUSIVE RIJ TLC DRSG. BLUM PER PROTOCOL. SITE APPEARS WNL.
[2025-05-05 21:32] LABS: Glucose - Point of Care 103 mg/dl (70-99)
[2025-05-05] MEDS: SENOKOT 8.6 MG PO (21:46)
[2025-05-05] MEDS: TYLENOL 650 MG PO (21:46)
[2025-05-05 23:20] VITALS: BP 152/85
[2025-05-06 04:43] LABS: Blood Urea Nitrogen 14 mg/dl (7-17); Calcium 8.6 mg/dl (8.4-10.2); Carbon Dioxide 24 mmol/L (22-30); Chloride 109 mmol/L (98-107); Estimated Creatinine Clearance 28 ml/min; Glucose 74 mg/dl (70-99); Magnesium 2.0 mg/dl (1.6-2.3); Potassium 4.4 mmol/L (3.5-5.1); Sodium 136 mmol/L (135-145); eGFR 55.90
[2025-05-06 06:00] VITALS: BMI 17.5
[2025-05-06] MEDS: SYNTHROID 50 MCG PO (06:16)
[2025-05-06 07:00] VITALS: BP 154/50
[2025-05-06 07:47] LABS: Glucose - Point of Care 77 mg/dl (70-99)
[2025-05-06] MEDS: ZESTRIL 40 MG PO (08:00)
[2025-05-06] MEDS: ELIQUIS 2.5 MG PO ×2 (08:01→20:07)
[2025-05-06] MEDS: TOPROL XL 25 MG PO ×2 (08:01→20:07)
[2025-05-06] MEDS: PACERONE 200 MG PO (08:08)
--- NOTE | 2025-05-06 10:13 | PN.CDI ---
CDI
- -
CDI:
Physician Documentation Request
Admit Date: 04/17/25 22:41
Dear Doctor Kellen,
04/29 WOCN note states 'Sacrum with healing DTI, appears superficial as blistery dark skin sloughed off, revealing pink skin underneath with few areas of lorenzana, suspect stage 3 PI'
Physician documentation of the type and location of wounds is required for compliant documentation. Based on the above clinical findings and your assessment, please provide the following in your progress note:
1. Location of the ulcer/wound, including laterality.
2. Type (etiology) of ulcer/wound:
- Diabetic ulcer
- Traumatic wound
- Pressure (decubitus) ulcer
- Other
Use of terms such as suspected, likely, concern for, or probable (associated with a specific diagnosis that is being evaluated, monitored, or treated as if it exists) are acceptable and can be coded in the inpatient setting, when documented at the
time of discharge.
Thank you,
Hina Mccarthy RN, BSN
CDI Specialist
tiger text
Please use your independent medical judgment in providing your response.
*Source: National Pressure Ulcer Advisory Panel (NPUAP)
--- NOTE | 2025-05-06 10:26 | CM ---
Addendum entered by Lissa Paredes 05/06/25 15:03:
[facility] reviewer contacted CM, requesting additional information regarding her prior level of function and assistance provided by family.
Authorization is still pending review.
Addendum entered by Lissa Paredes 05/06/25 12:30:
Please speech/video swallow results with continuum of care report at discharge.

Original Note:
Pt is cleared for discharge to SNF. [facility] is the requested facility. CM spoke with Bed available for transfer today pending authorization.
Authorization submitted today to [facility] [facility], Reference# [id number]. Records faxed for review.
Plan: CM to coordinate transfer to [facility] pending insurance authorization.
Report: [phone]
--- NOTE | 2025-05-06 11:10 | W.PN.HOSP.TC ---
Addendum entered and electronically signed by Alex Foreman MD 05/06/25 12:07:
called granddaughter. No response. left vm for callback.
Original Note:
Today's Communication/Plan
-
Awaiting placement
Medically stable
Assessment / Plan
Assessment / Plan
#Acute toxic metabolic encephalopathy -most likely multifactorial etiology including hypoglycemia, hypotension, severe metabolic acidosis, NALINI, etc.
CT head on admission shows no acute abnormality. No hemorrhage. 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 Baseline cognition unknown.
Resolved
#Acute hypoxic respiratory failure
Right-sided pleural effusion.
Status post intubated and mechanical ventilation on admission
s/p extubation
Chest ultrasound shows normal fluid on the right side to tap.
Bronchodilators.
Remains on room air
#Shock likely septic ESBL UTI and MRSA pneumonia
off pressors
Did receive IV albumin as ordered by nephrology.
Blood cultures negative so far, urine culture w/ESBL
Urinalysis does show pyuria.
Sputum sample with MRSA/Yeast
Finished ertapenem course per ID. Completed course of vancomycin.
#NALINI -likely due to shock, hypotension, ATN, hypovolemia, etc.
#Anasarca
#Hypokalemia status post aggressive repletion
Status post hemodialysis.
Cr stabilized. Lactic acidosis resolved.
Potassium stable at 4.4.
#Acute anemia
presentation with hemoglobin 10.6,
Hgb at 6.5. s/p 1u of PRBC so far.
No hematuria or luminal bleeding noted
Hemoglobin stable.
Restarted Eliquis.
#Acute thrombocytopenia
Possibly due to critical illness, shock, antibiotics inflammatory state etc . .
Platelets are starting to stabilize. Platelets stable
#Dysphagia
Pulled NG tube
S/P VSE 7/8 - cleared for clear liquids
cw SPT and advance diet as able -now on IDDSI5
#Bilateral superficial thrombosis
Heme input noted
#Acute ischemic hepatitis -elevated transaminases, likely due to the shock.
Alk phos elevated seems to be plateauing
Hepatitis panel negative
#High AG metabolic acidosis -presentation with shock, lactic acidosis, NALINI.
Unclear if patient with type B lactic acidosis. resolved.
# Essential HTN -resumed home meds of ACEI and BB. Increase dose of BB.
#Hypothermia -resolved.
TSH 31, free T4 normal at 1.3. 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
Empirically started on IV levothyroxine and now transition to p.o.
Random cortisol more than adequate, 46.2.
Transitioned patient to 50 mcg p.o. Synthroid.
#Atrial fibrillation, unknown type
restarted on amiodarone
Admission EKG with sinus rhythm and first-degree AV block.
Nonspecific intraventricular conduction block.
ECHO 04/20/25- LV ejection fraction is 55-60%. No regional wall motion abnormalities are seen. Normal right ventricular size and function. Mild to moderate mitral regurgitation. Aortic sclerosis without stenosis. Mild aortic regurgitation.
DM2 with hypoglycemia/hyperglycemia -presentation with glucose 45, reportedly glucose in the 20s at home. Metformin listed as the only diabetes medication.
Required insulin IV infusion on 04/18, glucoses subsequently improved and did have hypoglycemia. Currently off IV insulin.
Hemoglobin A1c 5.7%.
Sacrum stage III PI unclear chronicity
Full code
DVT ppx-eliquis
Medically stable for DC to rehab. CM aware.
Await placement
Anticipated Discharge: Today
Subjective/Interval History
-
Date of Service: May 06, 2025
States she is hungry and wants to eat breakfast
Objective Data
-
Labs:
Laboratory Results
05/06/25
03:48
Sodium 136
Potassium 4.4 D
Chloride 109 H
Carbon Dioxide 24
BUN 14
Creatinine 1.0
Glucose 74
Calcium 8.6
Vital Signs:
Vital Signs
Temp Pulse Resp BP Pulse Ox
97.6 F 60 16 154/50 98
05/06/25 07:00 05/06/25 08:01 05/06/25 07:00 05/06/25 08:01 05/06/25 07:00
I&O
05/05/25 05/06/25 05/07/25
06:59 06:59 06:59
Intake Total 460 / 460 500 / 500
Balance 460 / 460 500 / 500
Physical Exam
-
General: Comfortable and Cachectic
HEENT: Normocephalic, Atraumatic, Moist Mucous Membranes and Other (RIJ line)
Respiratory: Crackles (left base) and Non Labored Respirations; Negative Wheezes or Accessory Resp Muscle Use
Cardiac: Regular Rhythm and S1/S2
GI: Soft, Nontender, Nondistended and Normal Bowel Sounds
Skin: Warm
Neuro: Awake and No Motor Deficits
Psych: Calm
[2025-05-06 11:53] LABS: Glucose - Point of Care 87 mg/dl (70-99)
--- NOTE | 2025-05-06 14:46 | CM ---
Call received from [facility] [employer] regarding authorization request. They are requesting additional notes from PT/OT; CM contacted PT/OT via [employer] to request pt be seen today for SNF authorization.
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 Lauren does not speak Bengali, and the fire crew worker line was not
successful with obtaining information directly from [employer].
KLEBER continues attempts to reach family to discuss pt's prior level of function prior to this hospitalization.
[2025-05-06 15:00] VITALS: BP 185/68
[2025-05-06 16:43] LABS: Glucose - Point of Care 91 mg/dl (70-99)
[2025-05-06 20:05] VITALS: BP 185/68
[2025-05-06 21:21] LABS: Glucose - Point of Care 78 mg/dl (70-99)
[2025-05-06] MEDS: SENOKOT 8.6 MG PO (21:28)
[2025-05-06 23:52] VITALS: BP 198/78
[2025-05-07] MEDS: SYNTHROID 50 MCG PO (06:18)
[2025-05-07 06:33] VITALS: BMI 16.5
[2025-05-07 07:36] LABS: Glucose - Point of Care 72 mg/dl (70-99)
[2025-05-07 07:58] VITALS: BP 154/64
[2025-05-07] MEDS: ELIQUIS 2.5 MG PO (09:12)
[2025-05-07] MEDS: ZESTRIL 40 MG PO (09:12)
[2025-05-07] MEDS: PACERONE 200 MG PO (09:13)
[2025-05-07] MEDS: TOPROL XL PO (09:15)
--- NOTE | 2025-05-07 11:14 | CM ---
CM was able to meet with pt's daughter and granddaughter. Pt's granddaughter advised that pt's ambulation was with a RW and both daughter and granddaughter would assist, one on each side of the walker, for moving the walker forward. CM to update
[facility] with this information.
Plan: CM to continue to pursue SNF transfer vs. discharge to home with VN.
--- NOTE | 2025-05-07 11:56 | W.PN.HOSP.TC ---
Today's Communication/Plan
-
Medically stable. Still awaiting placement
Continue with current regimen
Recommend out of bed with therapy
Assessment / Plan
Assessment / Plan
Hospital course: 84-year-old female past medical history of hypertension, atrial fibrillation who was intubated on admission. S/p extubation patient did well. Patient had acute toxic metabolic encephalopathy which was deemed multifactorial. CT
head with no acute intracranial abnormality. Mentation seems of significantly improved. Patient was also found to be in septic shock secondary to ESBL UTI and MRSA pneumonia. Patient completed course with ertapenem and IV vancomycin. Infectious
disease was consulted. Patient was also seen by critical care. Patient also had admission with severe acute kidney injury. Patient received briefly hemodialysis. Post hemodialysis patient did well. Dialysis catheter was removed. Nephrology
signed off. Patient also with anemia and received 1 unit of PRBC. Hemoglobin stabilized and Eliquis was restarted. Patient also had acute thrombocytopenia which was deemed secondary to septic shock and platelets stabilized. Eliquis was
restarted. Patient was also seen by hematology. Patient was also found with severely elevated TSH and was started on p.o. Synthroid. Patient was eventually weaned after oxygenation. Patient electrolytes were stabilized. Patient also with
dysphagia and was eval by speech multiple times. Patient tolerating modified diet. Patient was eval by PT and OT and awaiting placement.
#Acute toxic metabolic encephalopathy -most likely multifactorial etiology including hypoglycemia, hypotension, severe metabolic acidosis, NALINI, etc.
CT head on admission shows no acute abnormality. No hemorrhage. 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 Baseline cognition unknown.
Resolved
#Acute hypoxic respiratory failure
Right-sided pleural effusion.
Status post intubated and mechanical ventilation on admission
s/p extubation
Chest ultrasound shows normal fluid on the right side to tap.
Bronchodilators.
Remains on room air
#Shock likely septic ESBL UTI and MRSA pneumonia
off pressors
Did receive IV albumin as ordered by nephrology.
Blood cultures negative so far, urine culture w/ESBL
Urinalysis does show pyuria.
Sputum sample with MRSA/Yeast
Finished ertapenem course per ID. Completed course of vancomycin.
#NALINI -likely due to shock, hypotension, ATN, hypovolemia, etc.
#Anasarca
#Hypokalemia status post aggressive repletion
Status post hemodialysis.
Cr stabilized. Lactic acidosis resolved.
Potassium stable at 4.4.
#Acute anemia
presentation with hemoglobin 10.6,
Hgb at 6.5. s/p 1u of PRBC so far.
No hematuria or luminal bleeding noted
Hemoglobin stable.
Restarted Eliquis.
#Acute thrombocytopenia
Possibly due to critical illness, shock, antibiotics inflammatory state etc . .
Platelets are starting to stabilize. Platelets stable
#Dysphagia
Pulled NG tube
S/P VSE 04/28 - cleared for clear liquids
cw SPT and advance diet as able -now on IDDSI5
#Bilateral superficial thrombosis
Heme input noted
#Acute ischemic hepatitis -elevated transaminases, likely due to the shock.
Alk phos elevated seems to be plateauing
Hepatitis panel negative
#High AG metabolic acidosis -presentation with shock, lactic acidosis, NALINI.
Unclear if patient with type B lactic acidosis. resolved.
# Essential HTN -resumed home meds of ACEI and BB. Increase dose of BB.
#Hypothermia -resolved.
TSH 31, free T4 normal at 1.3. 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
Empirically started on IV levothyroxine and now transition to p.o.
Random cortisol more than adequate, 46.2.
Transitioned patient to 50 mcg p.o. Synthroid.
#Atrial fibrillation, unknown type
restarted on amiodarone
Admission EKG with sinus rhythm and first-degree AV block.
Nonspecific intraventricular conduction block.
ECHO 04/20/25- LV ejection fraction is 55-60%. No regional wall motion abnormalities are seen. Normal right ventricular size and function. Mild to moderate mitral regurgitation. Aortic sclerosis without stenosis. Mild aortic regurgitation.
DM2 with hypoglycemia/hyperglycemia -presentation with glucose 45, reportedly glucose in the 20s at home. Metformin listed as the only diabetes medication.
Required insulin IV infusion on 04/18, glucoses subsequently improved and did have hypoglycemia. Currently off IV insulin.
Hemoglobin A1c 5.7%. Metformin further discontinued. POC stabilized.
Sacrum stage III PI unclear chronicity
Full code
DVT ppx-eliquis
Medically stable for DC to rehab. CM aware.
Await placement
Anticipated Discharge: Today
Subjective/Interval History
-
Date of Service: May 07, 2025
Patient eating breakfast. No complaints. Remains with good appetite.
Objective Data
-
Vital Signs:
Vital Signs
Temp Pulse Resp BP Pulse Ox
97.8 F 54 14 154/64 95
05/07/25 07:58 05/07/25 09:15 05/07/25 07:58 05/07/25 09:15 05/07/25 07:58
I&O
05/06/25 05/07/25 05/08/25
06:59 06:59 06:59
Intake Total 500 / 500 240 / 240
Balance 500 / 500 240 / 240
Physical Exam
-
General: Comfortable and Cachectic
HEENT: Normocephalic, Atraumatic, Moist Mucous Membranes and Other (RIJ line)
Respiratory: Crackles (left base) and Non Labored Respirations; Negative Wheezes or Accessory Resp Muscle Use
Cardiac: Regular Rhythm and S1/S2
GI: Soft, Nontender, Nondistended and Normal Bowel Sounds
Skin: Warm
Neuro: Awake and No Motor Deficits
Psych: Calm
[2025-05-07 12:36] LABS: Glucose - Point of Care 91 mg/dl (70-99)
--- NOTE | 2025-05-07 12:39 | CM ---
CM requested appeal of SNF denial. Dr. Jang contacted Rachid FRAZIER and was able to obtain approval for SNF transfer. Awaiting official authorization number.
Plan: Transfer to [facility] via ambulance once authorization number received.
--- NOTE | 2025-05-07 14:28 | W.DCSUMMARY ---
Discharge Summary
Discharge Data
Date of Admission: 04/17/25
Date of Discharge: 05/07/25
-
Pending Results: No
Hospital Course
84-year-old female past medical history of hypertension, atrial fibrillation who was intubated on admission. S/p extubation patient did well. Patient had acute toxic metabolic encephalopathy which was deemed multifactorial. CT head with no acute
intracranial abnormality. Mentation seems of significantly improved. Patient was also found to be in septic shock secondary to ESBL UTI and MRSA pneumonia. Patient completed course with ertapenem and IV vancomycin. Infectious disease was
consulted. Patient was also seen by critical care. Patient also had admission with severe acute kidney injury. Patient received briefly hemodialysis. Post hemodialysis patient did well. Dialysis catheter was removed. Nephrology signed off.
Patient also with anemia and received 1 unit of PRBC. Hemoglobin stabilized and Eliquis was restarted. Patient also had acute thrombocytopenia which was deemed secondary to septic shock and platelets stabilized. Eliquis was restarted. Patient
was also seen by hematology. Patient was also found with severely elevated TSH and was started on p.o. Synthroid. Patient was eventually weaned after oxygenation. Patient electrolytes were stabilized. Patient also with dysphagia and was eval by
speech multiple times. Patient tolerating modified diet. Patient was eval by PT and OT and plan to discharge to SNF.
Discharge Plan
-
Patient Disposition: Alf/SNF
Discharge Diagnosis/Procedures: Acute toxic metabolic encephalopathy
Acute hypoxic respiratory failure
Status post intubation mechanical ventilation status post extubation
Septic shock secondary to ESBL UTI and MRSA pneumonia
Acute kidney injury status post hemodialysis
Acute anemia status post blood transfusion
Acute thrombocytopenia
Dysphagia
Bilateral superficial thrombosis
Acute ischemic hepatitis
Anion gap metabolic acidosis
Hypothymia
Hypothyroidism
Hypoglycemia
Condition: Fair
Additional Diets: IDDSI Level 5 (minced/moist) and thin liquids
Aspiration precautions: sit upright, dentures in place for meals, slow rate
Meds as tolerated
Activity: As tolerated
Driving Restrictions: Not until seen by your Dr
Blood Work: TSH in 4 weeks via primary doctor
BMP and CBC in 1 week by primary doctor.
Activity Restrictions/Additional Instructions:
Wound Care Instructions
Sacrum: clean with saline, Xeroform, alginate and silicone foam change daily and prn drainage or soilage.
Heels: silicone foams, assess under foam daily for any changes to skin and change dressing q 3 days and prn soilage.
L arm and lower leg: clean with saline, vaseline gauze and dry dressing change q 2-3 days and prn drainage.
air mattress with turning schedule
air cushion when sitting, limit time in chair to meals
offloading heel boots
increase protein in diet
Follow up at wound care center call for an appointment.
Referrals:
Tima Joshi DO [Family Provider, Family Practice]
Prescriptions:
New
levothyroxine 50 mcg Tablet
50 mcg PO DAILY @ 0600 30 Days Qty: 30 0RF
Continued
pravastatin 40 mg Tablet
40 mg PO DAILY
amiodarone 200 mg Tablet
200 mg PO DAILY
famotidine [Pepcid] 20 mg Tablet
20 mg PO BIDPRN PRN (Reason: gerd)
ferrous sulfate 325 mg (65 mg iron) Tablet
325 mg PO MOWEFR
ergocalciferol (vitamin D2) 1,250 mcg (50,000 unit) Capsule
1,250 mcg PO MO
lisinopril 40 mg Tablet
40 mg PO DAILY
Eliquis 2.5 mg Tablet
2.5 mg PO BID
Changed
metoprolol succinate [Toprol XL] 25 mg Tablet Extended Release 24 Hr
25 mg PO BID Qty: 0 0RF
Discontinued
metformin 500 mg Tablet
500 mg PO BID
guaifenesin [Karli-Tussin] 100 mg/5 mL Liquid
200 mg PO Q6HPRN PRN (Reason: cough)
Discharge Orders:
Discharge Patient (As Directed); Ordered 05/07/25
Ordered By: Alex Foreman
Discharge Date and Time
Print Language: Tagalog
[2025-05-07] MEDS: FLEET MINERAL OIL ENEMA 133 ML RECTAL (14:43)
[2025-05-07 16:00] VITALS: BP 169/67
--- NOTE | 2025-05-07 16:39 | WOUNDNOTE ---
LLE (anterior medial) (photo taken by MAZIN Pack RN)
--- NOTE | 2025-05-07 16:42 | WOUNDNOTE ---
WO RN Note: Patient discharged to SNF today. MAZIN park texted this chief underwriter and Dr. Kellen MENJIVAR wound photo. Dr. Foreman requested wound care instruction for LLE in discharge instruction as per MAZIN Brewer.Bharat texted Dr. Kellen MENJIVAR wound photo
noting wound has evolved to necrotic tissue in center and requested hospitalist to add script for Santlyl ointment daily LLE wound in the discharge. Updated wound care instructions for LLE in discharge instructions.
--- NOTE | 2025-05-07 17:09 | WOUNDNOTE ---
WO RN note: t/c [facility] ([phone]), spoke with nurse Ghazal; gave wound care report including sacral, LUE and LLE wound care and foam dressing to heels; also recommend an air mattress at SNF. Ghazal stated she will put in a request
for an air mattress and that they have a security incident response specialist who visits weekly.
== END 2025-05-07 17:41 | DRG 871 ==
LOC: 3 WEST ACU 22:41
PROVIDERS: Hospitalist; Internal Medicine; Internal Medicine Critical Care Medicine; Internal Medicine Infectious Disease; Nurse Practitioner Acute Care; Nurse Practitioner Family; Nurse Practitioner Primary Care; Radiology Vascular & Interventional Radiology; Specialist; ADMITTING PHYSICIAN Hospitalist; ATTENDING PHYSICIAN Hospitalist; CONSULT PHYSICIAN Internal Medicine Critical Care Medicine; CONSULT PHYSICIAN Internal Medicine Infectious Disease; CONSULT PHYSICIAN Internal Medicine Nephrology; EMERGENCY PHYSICIAN Emergency Medicine; FAMILY PHYSICIAN Family Medicine; OTHER PHYSICIAN Internal Medicine Hematology & Oncology
PROC: 5A1945Z Respiratory Ventilation, 24-96 Consecutive Hours (ICD-10-PCS; 2025-04-17)
PROC: 0BH17EZ Insertion of Endotracheal Airway into Trachea, Via Natural or Artificial Opening (ICD-10-PCS; 2025-04-17)
PROC: 03HY32Z Insertion of Monitoring Device into Upper Artery, Percutaneous Approach (ICD-10-PCS; 2025-04-17)
PROC: 05HY33Z Insertion of Infusion Device into Upper Vein, Percutaneous Approach (ICD-10-PCS; 2025-04-18)
PROC: 02HV33Z Insertion of Infusion Device into Superior Vena Cava, Percutaneous Approach (ICD-10-PCS; 2025-04-19)
PROC: 5A1D70Z Performance of Urinary Filtration, Intermittent, Less than 6 Hours Per Day (ICD-10-PCS; 2025-04-22)
PROC: 30233N1 Transfusion of Nonautologous Red Blood Cells into Peripheral Vein, Percutaneous Approach (ICD-10-PCS; 2025-04-22)
PROC: 02H633Z Insertion of Infusion Device into Right Atrium, Percutaneous Approach (ICD-10-PCS; 2025-04-27)
DX: A41.9 Sepsis, unspecified organism (principal); G92.8 Other toxic encephalopathy; L89.153 Pressure ulcer of sacral region, stage 3; J96.01 Acute respiratory failure with hypoxia; R65.21 Severe sepsis with septic shock; K72.00 Acute and subacute hepatic failure without coma; J15.212 Pneumonia due to Methicillin resistant Staphylococcus aureus; N17.0 Acute kidney failure with tubular necrosis; E87.21 Acute metabolic acidosis; Z16.12 Extended spectrum beta lactamase (ESBL) resistance; N39.0 Urinary tract infection, site not specified; I82.613 Acute embolism and thrombosis of superficial veins of upper extremity, bilateral; E87.0 Hyperosmolality and hypernatremia; R64 Cachexia; Z68.1 Body mass index [BMI] 19.9 or less, adult; I12.9 Hypertensive chronic kidney disease with stage 1 through stage 4 chronic kidney disease, or unspecified chronic kidney disease; N18.9 Chronic kidney disease, unspecified; D69.59 Other secondary thrombocytopenia; E86.1 Hypovolemia; E11.649 Type 2 diabetes mellitus with hypoglycemia without coma; E11.65 Type 2 diabetes mellitus with hyperglycemia; E11.22 Type 2 diabetes mellitus with diabetic chronic kidney disease; D63.1 Anemia in chronic kidney disease; E87.5 Hyperkalemia; E87.6 Hypokalemia; R68.0 Hypothermia, not associated with low environmental temperature; R13.10 Dysphagia, unspecified; I48.91 Unspecified atrial fibrillation; E03.9 Hypothyroidism, unspecified; E83.51 Hypocalcemia; E83.42 Hypomagnesemia; E83.39 Other disorders of phosphorus metabolism; B96.1 Klebsiella pneumoniae [K. pneumoniae] as the cause of diseases classified elsewhere; Z79.84 Long term (current) use of oral hypoglycemic drugs; Z79.01 Long term (current) use of anticoagulants
CPT/HCPCS: 31500; 36556; 51702; 70450; 71045; 74018; 74230; 76604; 76937; 76942; 77001; 80048; 80053; 80202; 81003; 81015; 82248; 82533; 82550; 82607; 82728; 82746; 82805; 82962; 83036; 83605; 83615; 83735; 84100; 84439; 84443; 84478; 84484; 85025; 85027; 85045; 85379; 85384; 85610; 85730; 86022; 86023; 86704; 86706; 86803; 86850; 86900; 86901; 86920; 87040; 87070; 87077; 87086; 87147; 87186; 87205; 87324; 87340; 87449; 87899; 92526; 92610; 92611; 93005; 93306; 93971; 94002; 94003; 96361; 96365; 96366; 96375; 96376; 97163; 97167; 97530; 97535; 99291; C1752; G0257; J1335; P9016; P9047